=== PATIENT | male | born 1950 | race American Indian/Alaskan Native ===

== ENCOUNTER 2017-03-09 16:27 | Emergency (ER) | payer MEDICARE, OTHER ==
[2017-03-09 17:55] LABS: Basophils % (Auto) 0.9 % (0.0-1.8); Eosinophils % (Auto) 2.1 % (0.0-4.3); Hematocrit 39.2 % (35.5-45.6); Hemoglobin 13.1 gm/dl (11.8-15.2); Mean Corpuscular HGB Conc 33 % (32-34); Mean Corpuscular Hemoglobin 30 pg (28-32); Mean Corpuscular Volume 90 fl (84-94); Platelet Count 216 K/mm3 (140-440); Red Blood Count 4.34 M/mm3 (3.65-5.03); Red Cell Distribution Width 14.8 % (13.2-15.2); White Blood Count 4.8 K/mm3 (4.5-11.0)
[2017-03-09 18:13] LABS: Anion Gap 22 mmol/L; BUN/Creatinine Ratio 12; Blood Urea Nitrogen 12 mg/dL (9-20); Calcium 9.2 mg/dL (8.4-10.2); Carbon Dioxide 26 mmol/L (22-30); Chloride 100.5 mmol/L (98-107); Glucose 199 mg/dL (75-100); Potassium 4.6 mmol/L (3.6-5.0); Sodium 144 mmol/L (137-145)
[2017-03-09 20:32] LABS: Bacteria,Urine 1+ /HPF (Negative); Bilirubin,Urine NEG (Negative); Blood,Urine NEG (Negative); Ketones,Urine NEG (Negative); Leukocyte Esterase,Urine NEG (Negative); Nitrite,Urine NEG (Negative); Protein,Urine <15 mg/dL mg/dL (Negative); Urobilinogen,Urine < 2.0 mg/dL (<2.0)
--- NOTE | 2017-03-09 20:50 | Emergency Department Report ---
ED Dizziness HPI - General Chief Complaint: Hypoglycemia Stated Complaint: HYPERGLYCEMIA Time Seen by Provider: 03/09/17 19:07 Source: patient, EMS Mode of arrival: Stretcher Limitations: No Limitations - History of Present Illness Initial Comments: Patient gave initial story but due to dementia I called grandson and was able obtain similar story but with better details. Patient did not eat breakfast and is on long and short acting insulin. He laid around all day and around 5 pm the grandson went into room to get the patient up and he did respond yes but then was not responsive. His glucose was in the teens when EMS first arrived. Patient has no other compliaints and grandson said he was back to baseline after glucose came up. MD Complaint: dizziness, other (confused) -: Sudden, This afternoon Timing: sudden onset Description: other (did not respond verbally normally to grandson.) History of Same: Yes History of Trauma: No Severity: moderate Improves With: medication (glucose) Worsens With: nothing Associated Symptoms: confusion - Related Data Home Medications Medication Instructions Recorded Confirmed Last Taken Glipizide 03/09/17 Unknown metFORMIN 03/09/17 Unknown Allergies Allergy/AdvReac Type Severity Reaction Status Date / Time No Known Allergies Allergy Unverified 03/09/17 16:29 ED Review of Systems ROS: Stated complaint: HYPERGLYCEMIA Other details as noted in HPI Constitutional: denies: chills, fever Eyes: denies: eye pain, eye discharge, vision change ENT: denies: ear pain, throat pain Respiratory: denies: cough, shortness of breath, wheezing Cardiovascular: denies: chest pain, palpitations Endocrine: no symptoms reported Gastrointestinal: denies: abdominal pain, nausea, diarrhea Genitourinary: denies: urgency, dysuria Musculoskeletal: denies: back pain, joint swelling, arthralgia Skin: denies: rash, lesions Neurological: weakness, confusion. denies: headache, paresthesias Psychiatric: denies: anxiety, depression Hematological/Lymphatic: denies: easy bleeding, easy bruising ED Past Medical Hx - Past Medical History Previous Medical History?: Yes Hx Hypertension: Yes Hx Diabetes: Yes Additional medical history: Family reported to EMS that pt is in the first stages of dementia - Surgical History Past Surgical History?: No - Medications Home Medications: Home Medications Medication Instructions Recorded Confirmed Last Taken Type Glipizide 03/09/17 Unknown History metFORMIN 03/09/17 Unknown History ED Physical Exam - General Limitations: No Limitations General appearance: alert, in no apparent distress - Head Head exam: Present: atraumatic, normocephalic - Eye Eye exam: Present: normal appearance - ENT ENT exam: Present: mucous membranes moist - Neck Neck exam: Present: normal inspection - Respiratory Respiratory exam: Present: normal lung sounds bilaterally. Absent: respiratory distress - Cardiovascular Cardiovascular Exam: Present: regular rate, normal rhythm. Absent: systolic murmur, diastolic murmur, rubs, gallop - GI/Abdominal GI/Abdominal exam: Present: soft, normal bowel sounds - Rectal Rectal exam: Present: deferred - Extremities Exam Extremities exam: Present: normal inspection - Back Exam Back exam: Present: normal inspection - Neurological Exam Neurological exam: Present: alert, oriented X3, other (Patient unable to give clear details of timing but did give me sequence of events well. ) - Psychiatric Psychiatric exam: Present: normal affect, normal mood - Skin Skin exam: Present: warm, dry, intact, normal color. Absent: rash ED Course Vital Signs 03/09/17 03/09/17 03/09/17 16:31 16:59 17:00 Pulse Rate 82 Respiratory 18 Rate Blood Pressure 150/90 188/73 188/73 O2 Sat by Pulse 98 100 100 Oximetry 03/09/17 17:03 Pulse Rate Respiratory 16 Rate Blood Pressure O2 Sat by Pulse Oximetry ED Medical Decision Making - Lab Data Result diagrams: 03/09/17 16:53 03/09/17 16:53 Unremarkable labs. - Medical Decision Making Patient with hypoglycemic event likely due to missing breakfast and being on a long acting insulin. He has maintained sugars here and is back to baseline congnitive function. We will let him go home and follow up outpatient. D/W patient's grandson. Critical care attestation.: If time is entered above; I have spent that time in minutes in the direct care of this critically ill patient, excluding procedure time. ED Disposition Clinical Impression: Hypoglycemia due to type 1 diabetes mellitus Dementia Qualifiers: Dementia type: Alzheimer's disease Alzheimer's disease onset: early-onset Dementia behavioral disturbance: without behavioral disturbance Qualified Code(s ): G30.0 - Alzheimer's disease with early onset; F02.80 - Dementia in other diseases classified elsewhere without behavioral disturbance; F02.80 - Dementia in other diseases classified elsewhere without behavioral disturbance; F02.80 - Dementia in other diseases classified elsewhere without behavioral disturbance Disposition: DC-01 TO HOME OR SELFCARE Is pt being admited?: No Does the pt Need Aspirin: No Condition: Good Instructions: Diabetes Mellitus Type 2 in Adults (ED), Diabetic Hypoglycemia ( ED) Referrals: PRIMARY CARE, [Primary Care Provider] - 3-5 Days Time of Disposition: 20:52
[2017-03-09 21:59] VITALS: BP 186/86
== END 2017-03-09 21:59 | disposition home or self-care (01) ==
LOC: ED 16:27
DX: E10.649 Type 1 diabetes mellitus with hypoglycemia without coma (principal); G30.0 Alzheimer's disease with early onset; F02.80 Dementia in other diseases classified elsewhere, unspecified severity, without behavioral disturbance, psychotic disturbance, mood disturbance, and anxiety; I10 Essential (primary) hypertension
CPT/HCPCS: 36415; 80048; 81001; 82962; 85025

== ENCOUNTER 2017-08-29 01:28 | Emergency (ER) | payer MEDICARE ==
[2017-08-29 02:20] LABS: Basophils % (Auto) 0.7 % (0.0-1.8); Eosinophils # (Auto) 0.2 K/mm3 (0.0-0.4); Eosinophils % (Auto) 3.9 % (0.0-4.3); Hematocrit 34.4 % (35.5-45.6); Hemoglobin 11.9 gm/dl (11.8-15.2); Lymphocytes # (Auto) 1.8 K/mm3 (1.2-5.4); Lymphocytes % (Auto) 37.1 % (13.4-35.0); Mean Corpuscular HGB Conc 35 % (32-34); Mean Corpuscular Hemoglobin 31 pg (28-32); Mean Corpuscular Volume 89 fl (84-94); Monocytes # (Auto) 0.3 K/mm3 (0.0-0.8); Monocytes % (Auto) 6.9 % (0.0-7.3); Platelet Count 147 K/mm3 (140-440); Red Blood Count 3.84 M/mm3 (3.65-5.03); Red Cell Distribution Width 13.9 % (13.2-15.2)
[2017-08-29 02:52] LABS: Calcium 8.7 mg/dL (8.4-10.2)
[2017-08-29 03:11] LABS: Bilirubin,Urine NEG (Negative); Blood,Urine NEG (Negative); Color,Urine Yellow (Yellow); Mucus,Urine FEW /HPF; Protein,Urine <15 mg/dL mg/dL (Negative); Urobilinogen,Urine < 2.0 mg/dL (<2.0); WBC,Urine < 1.0 /HPF (0.0-6.0)
[2017-08-29] MEDS ORDERED: NACL 0.9% 1000 ML 1,000 ML IV ONE (04:02)
--- NOTE | 2017-08-29 05:02 | Emergency Department Report ---
ED General Adult HPI - General Chief complaint: Hyperglycemia Stated complaint: HBS Time Seen by Provider: 08/29/17 04:24 Source: patient, EMS Mode of arrival: Stretcher Limitations: No Limitations - History of Present Illness Initial comments: Patient brought in by family with report that his sugar has been progressively increasing over the past week, despite taken his normal insulin doses as scheduled. He is a type 2 insulin-dependent diabetic, has not been ill recently , has been eating normally, and reports that he has been taken his regular doses without fail, with the exception of last evening's dose, but for which he cannot explain why he did not take. He reports that he takes insulin 3 times a day, but does not taken particularly with mealtime. Patient says that he administers his own insulin, but when questioned about his living arrangements, reports that his son helped him take care of his insulin dosing. Patient's past medical history is also significant for early stages of dementia , but patient is fairly active and independent, although he lives with his son. Patient is fairly cooperative, but cannot give exact details of his care, but despite this is able to give a fairly good history of this current problem. He has no other acute symptoms, and no systemic symptoms to suggest any source of possible infection. He has not had any trauma, has not been nauseated, has not been vomiting, has no cough or congestion, no chest pain, no sore throat, no difficulty with urination. -: Gradual, week(s) (1) - Related Data Home Medications Medication Instructions Recorded Confirmed Last Taken Glipizide 03/09/17 Unknown metFORMIN 03/09/17 Unknown Allergies Allergy/AdvReac Type Severity Reaction Status Date / Time No Known Allergies Allergy Unverified 03/09/17 16:29 ED Review of Systems ROS: Stated complaint: HBS Other details as noted in HPI Comment: Unobtainable due to pts medical conditions (early stages of dementia, but patient is fairly cooperative and lucid) Constitutional: no symptoms reported. denies: chills, diaphoresis, fever, malaise, weakness ENT: denies: ear pain, throat pain Respiratory: denies: cough, shortness of breath, wheezing Cardiovascular: denies: chest pain, palpitations Endocrine: no symptoms reported. denies: excessive sweating, flushing, increased hunger, increased thirst Gastrointestinal: denies: abdominal pain, nausea, diarrhea Genitourinary: denies: urgency, dysuria Musculoskeletal: denies: back pain, joint swelling, arthralgia Skin: denies: rash, lesions Neurological: other (early dementia, as reported by family). denies: headache, weakness, paresthesias ED Past Medical Hx - Past Medical History Previous Medical History?: Yes Hx Hypertension: Yes Hx Diabetes: Yes Additional medical history: Family reported to EMS that pt is in the first stages of dementia - Surgical History Past Surgical History?: No - Social History Smoking Status: Former Smoker Substance Use Type: None - Medications Home Medications: Home Medications Medication Instructions Recorded Confirmed Last Taken Type Glipizide 03/09/17 Unknown History metFORMIN 03/09/17 Unknown History ED Physical Exam - General Limitations: No Limitations General appearance: alert, in no apparent distress - Head Head exam: Present: atraumatic, normocephalic - Eye Eye exam: Present: normal appearance, PERRL, EOMI - ENT ENT exam: Present: normal exam, mucous membranes moist - Neck Neck exam: Present: normal inspection. Absent: tenderness, full ROM - Respiratory Respiratory exam: Present: normal lung sounds bilaterally. Absent: respiratory distress, wheezes, rales, rhonchi - Cardiovascular Cardiovascular Exam: Present: regular rate, normal heart sounds - GI/Abdominal GI/Abdominal exam: Present: soft, normal bowel sounds. Absent: distended, tenderness, guarding, rebound - Rectal Rectal exam: Present: deferred - Extremities Exam Extremities exam: Present: normal inspection - Back Exam Back exam: Present: normal inspection - Neurological Exam Neurological exam: Present: alert, CN II-XII intact, motor sensory deficit, other ( vague and more nonspecific with more detailed questioning, but alert and fairly good historian) - Psychiatric Psychiatric exam: Present: normal affect, normal mood - Skin Skin exam: Present: warm, dry. Absent: diaphoretic, petechiae, pallor, abrasion , ecchymosis ED Course Vital Signs 08/29/17 08/29/17 08/29/17 01:31 01:45 01:48 Temperature 97.9 F Pulse Rate 67 65 64 Respiratory 12 16 Rate Blood Pressure 138/63 137/60 O2 Sat by Pulse 98 Oximetry 08/29/17 08/29/17 08/29/17 02:01 02:15 02:31 Temperature Pulse Rate 68 71 63 Respiratory 15 13 11 L Rate Blood Pressure 138/63 138/63 173/60 O2 Sat by Pulse Oximetry 08/29/17 08/29/17 08/29/17 02:45 03:00 03:07 Temperature Pulse Rate 66 62 Respiratory 11 L 11 L 12 Rate Blood Pressure 173/60 187/89 O2 Sat by Pulse 98 Oximetry 08/29/17 08/29/17 08/29/17 03:15 03:30 03:45 Temperature Pulse Rate 70 66 66 Respiratory 13 12 11 L Rate Blood Pressure 187/89 173/62 173/62 O2 Sat by Pulse Oximetry 08/29/17 08/29/17 08/29/17 04:01 04:15 04:31 Temperature Pulse Rate 69 62 60 Respiratory 13 10 L 10 L Rate Blood Pressure 162/140 162/140 168/59 O2 Sat by Pulse Oximetry 08/29/17 08/29/17 08/29/17 05:01 05:31 06:01 Temperature Pulse Rate 63 61 65 Respiratory 9 L 11 L 12 Rate Blood Pressure 181/70 183/64 206/75 O2 Sat by Pulse Oximetry 08/29/17 06:30 Temperature Pulse Rate 68 Respiratory 12 Rate Blood Pressure 151/84 O2 Sat by Pulse Oximetry - Reevaluation(s) Reevaluation #1: 08/29/17 06:52 Patient is stable, remains asymptomatic, labs were normal, with exception of hyperglycemia, but glucose is decreased from 515 2 4068, patient is not acidotic , has normal pH, and normal bicarbonate level. He is hyperglycemic, and needs adjustment of his medication, but does not need hospitalization or inpatient treatment for this. ED Medical Decision Making - Lab Data Result diagrams: 08/29/17 02:03 08/29/17 05:20 - Radiology Data Radiology results: report reviewed (chest x-ray shows no acute cardiopulmonary findings, no pneumonia or infiltrate suggestive of infectious process.) - Medical Decision Making Patient is stable, asymptomatic, has uncomplicated hyperglycemia with no signs of acidosis. He also has no findings of secondary infection, which we most likely cause of uncontrolled hyperglycemia, and he can be returned to his routine care. He may need adjustment of his insulin, and given his dementia, he could be less compliant then he is reporting. Patient is stable for discharge home, given usual morning dose of 25 units of Levemir insulin subcutaneous. He'll be recommended to follow with his doctor in the coming week. - Differential Diagnosis hyperglycemia, urinary tract infection, sepsis, pneumonia Critical Care Time: No Critical care attestation.: If time is entered above; I have spent that time in minutes in the direct care of this critically ill patient, excluding procedure time. ED Disposition Clinical Impression: Hyperglycemia due to type 2 diabetes mellitus Qualifiers: Diabetes mellitus terminal gauger supervisor insulin use: with terminal gauger supervisor use Qualified Code(s): E11.65 - Type 2 diabetes mellitus with hyperglycemia; Z79.4 - long-term (current ) use of insulin Disposition: DC-01 TO HOME OR SELFCARE Is pt being admited?: No Does the pt Need Aspirin: No Condition: Stable Instructions: Diabetes Mellitus Type 2 in Adults (ED) Additional Instructions: Blood sugar was high today, but there is no signs of secondary complications of acidosis, or underlying infection that could be cause of hyperglycemia. We recommend returning to your usual insulin dose, and follow with your doctor in the coming week to determine if you need to adjust your dose. Referrals: PRIMARY CARE [Primary Care Provider] - 3-5 Days Time of Disposition: 06:55
[2017-08-29 05:53] LABS: Albumin 3.8 g/dL (3.9-5); Calcium 8.8 mg/dL (8.4-10.2)
[2017-08-29 07:59] VITALS: BP 156/75
--- NOTE | 2017-08-30 14:29 | XRay Report ---
FINAL REPORT EXAM: XR CHEST 1V AP HISTORY: hyperglycemia TECHNIQUE: AP portable view(s) of the chest obtained. PRIORS: None. FINDINGS: No mediastinal shift. Cardiac silhouette is not enlarged. No pneumothorax, effusion, or focal pulmonary opacity identified. No acute skeletal findings. IMPRESSION: No acute pulmonary finding identified.
== END 2017-08-29 09:30 | disposition home or self-care (01) ==
LOC: EDBD 01:28 → ED 01:28
DX: E11.65 Type 2 diabetes mellitus with hyperglycemia (principal); I10 Essential (primary) hypertension; F03.90 Unspecified dementia, unspecified severity, without behavioral disturbance, psychotic disturbance, mood disturbance, and anxiety; Z79.4 Long term (current) use of insulin; Z87.891 Personal history of nicotine dependence
CPT/HCPCS: 36415; 71045; 80048; 80053; 81001; 82140; 82805; 82962; 85025; 96360; 99285; J7030

== ENCOUNTER 2017-11-07 21:34 | Emergency (ER) | payer MEDICARE ==
[2017-11-07] MEDS ORDERED: HumuLIN R IV ONE ×2 (21:54→23:46)
[2017-11-07] MEDS ORDERED: NACL 0.9% 1000 ML 1,000 ML IV ONE (22:14)
[2017-11-07 22:29] LABS: Basophils # (Auto) 0.1 K/mm3 (0.0-0.1); Basophils % (Auto) 1.2 % (0.0-1.8); Eosinophils # (Auto) 0.2 K/mm3 (0.0-0.4); Eosinophils % (Auto) 3.4 % (0.0-4.3); Hematocrit 31.1 % (35.5-45.6); Hemoglobin 10.8 gm/dl (11.8-15.2); Lymphocytes # (Auto) 1.5 K/mm3 (1.2-5.4); Lymphocytes % (Auto) 29.8 % (13.4-35.0); Mean Corpuscular HGB Conc 35 % (32-34); Mean Corpuscular Hemoglobin 32 pg (28-32); Mean Corpuscular Volume 92 fl (84-94); Monocytes # (Auto) 0.4 K/mm3 (0.0-0.8); Monocytes % (Auto) 8.8 % (0.0-7.3); Platelet Count 196 K/mm3 (140-440); Red Blood Count 3.38 M/mm3 (3.65-5.03); Red Cell Distribution Width 14.4 % (13.2-15.2)
--- NOTE | 2017-11-07 22:33 | Emergency Department Report ---
ED General Adult HPI - General Chief complaint: Hyperglycemia Stated complaint: HYPERGLYCEMIA Time Seen by Provider: 11/07/17 21:44 Source: patient, EMS Mode of arrival: Stretcher Limitations: Other - History of Present Illness Initial comments: 67 yo male the past medical history of diabetes currently on pills and insulin, hypertension, dementia, and elevated cholesterol presents to the hospital due to foot pain and swelling. Patient injured his right foot while getting out of a car yesterday as complained of right foot pain. He also complains of a bilateral foot pain and burning sensation. History of diabetic neuropathy reported. Patient scraped his anterior left leg during a fall as well. He presents with bilateral leg edema and has a history of pedal edema but has never spread to his legs in the past. Family called EMS to evaluate patient due to this pain and swelling and he was incidentally found with a glucose over 600. Patient has been compliant with his medication and was due for his evening dose of insulin prior to transport. Previous medical records were reviewed and patient has had renal insufficiency in the past. He is presenting here with hyperglyemia but not dka. - Related Data Home Medications Medication Instructions Recorded Confirmed Last Taken Glipizide 03/09/17 Unknown metFORMIN 03/09/17 Unknown Allergies Allergy/AdvReac Type Severity Reaction Status Date / Time No Known Allergies Allergy Unverified 03/09/17 16:29 ED Review of Systems ROS: Stated complaint: HYPERGLYCEMIA Other details as noted in HPI Comment: All other systems reviewed and negative ED Past Medical Hx - Past Medical History Previous Medical History?: Yes Hx Hypertension: Yes Hx Diabetes: Yes (pill and insulin) Additional medical history: dementia. elevated cholesterol - Social History Smoking Status: Never Smoker Substance Use Type: None - Medications Home Medications: Home Medications Medication Instructions Recorded Confirmed Last Taken Type Glipizide 03/09/17 Unknown History metFORMIN 03/09/17 Unknown History ED Physical Exam - General Limitations: Other - Other Other exam information: General: No limitations, patient is alert in no acute distress Head exam: Atraumatic, normocephalic Eyes exam: Normal appearance ENT: Moist mucous membrane, normal oropharynx Neck exam: Normal inspection, full range of motion, no meningismus nontender Respiratory exam: Clear to auscultation bilateral, no wheezes, rales, crackles Cardiovascular: Normal rate and rhythm, normal heart sounds Abdomen: Soft, nondistended, and nontender, with normal bowel sounds, no rebound, or guarding Extremity: Full range of motion, bilateral lower extremity edema from the foot to the distal leg. No calf tenderness. No erythema or warmth. Abrasion noted to left tibia area. 2+ DP pulses equal bilaterally. Sensation to feet intact and equal bilaterally Back: Normal Inspection, full range of motion, no tenderness Neurologic: Alert, oriented x3, cranial nerves intact, 4/5 left arm weakness compared to right which is chronic as per family and patient Psychiatric: normal affect, normal mood Skin: Warm, dry, intact ED Course Vital Signs 11/07/17 11/07/17 11/07/17 21:37 22:03 22:31 Temperature 98.7 F Pulse Rate 92 H 82 78 Respiratory 16 12 12 Rate Blood Pressure 138/76 138/76 133/72 O2 Sat by Pulse 98 99 98 Oximetry 11/07/17 11/07/17 11/07/17 22:45 23:01 23:15 Temperature Pulse Rate 78 76 76 Respiratory 11 L 12 12 Rate Blood Pressure 141/74 111/56 111/56 O2 Sat by Pulse 98 97 98 Oximetry 11/07/17 11/07/17 11/07/17 23:31 23:45 23:51 Temperature 98.3 F Pulse Rate 108 H 73 Respiratory 14 11 L Rate Blood Pressure 111/46 130/47 O2 Sat by Pulse 96 99 Oximetry 11/08/17 11/08/17 11/08/17 00:04 00:15 00:45 Temperature Pulse Rate 71 69 Respiratory 16 11 L 10 L Rate Blood Pressure 125/57 135/65 O2 Sat by Pulse 98 99 98 Oximetry ED Medical Decision Making - Lab Data Result diagrams: 11/07/17 22:12 11/07/17 22:12 Lab Results 11/07/17 11/07/17 11/07/17 Range/Units 22:12 22:12 22:12 WBC 5.0 (4.5-11.0) K/mm3 RBC 3.38 L (3.65-5.03) M/mm3 Hgb 10.8 L (11.8-15.2) gm/dl Hct 31.1 L (35.5-45.6) % MCV 92 (84-94) fl MCH 32 (28-32) pg MCHC 35 H (32-34) % RDW 14.4 (13.2-15.2) % Plt Count 196 (140-440) K/mm3 Lymph % (Auto) 29.8 (13.4-35.0) % [place] % (Auto) 8.8 H (0.0-7.3) % Eos % (Auto) 3.4 (0.0-4.3) % Baso % (Auto) 1.2 (0.0-1.8) % Lymph # 1.5 (1.2-5.4) K/mm3 [place] # 0.4 (0.0-0.8) K/mm3 Eos # 0.2 (0.0-0.4) K/mm3 Baso # 0.1 (0.0-0.1) K/mm3 Seg Neutrophils % 56.8 (40.0-70.0) % Seg Neutrophils # 2.8 (1.8-7.7) K/mm3 VBG pH 7.432 H (7.320-7.420) Sodium 132 L (137-145) mmol/L Potassium 4.2 (3.6-5.0) mmol/L Chloride 92.5 L (98-107) mmol/L Carbon Dioxide 23 (22-30) mmol/L Anion Gap 21 mmol/L BUN 27 H (9-20) mg/dL Creatinine 1.4 (0.8-1.5) mg/dL Estimated GFR > 60 ml/min BUN/Creatinine Ratio 19 % Glucose 730 H* (75-100) mg/dL POC Glucose (70-105) Calcium 8.7 (8.4-10.2) mg/dL Magnesium 2.20 (1.7-2.3) mg/dL Total Bilirubin 0.50 (0.1-1.2) mg/dL AST 32 (5-40) units/L ALT 38 (7-56) units/L Alkaline Phosphatase 70 (35-129) units/L Total Protein 6.1 L (6.3-8.2) g/dL Albumin 4.0 (3.9-5) g/dL Albumin/Globulin Ratio 1.9 % Urine Color (Yellow) Urine Turbidity (Clear) Urine pH (5.0-7.0) Ur Specific [place] (1.003-1.030) Urine Protein (Negative) mg/dL Urine Glucose (UA) (Negative) mg/dL Urine Ketones (Negative) mg/dL Urine Blood (Negative) Urine Nitrite (Negative) Urine Bilirubin (Negative) Urine Urobilinogen (<2.0) mg/dL Ur Leukocyte Esterase (Negative) Urine WBC (Auto) (0.0-6.0) /HPF Urine RBC (Auto) (0.0-6.0) /HPF U Epithel Cells (Auto) (0-13.0) /HPF Urine Mucus /HPF 11/07/17 11/07/17 11/08/17 Range/Units 23:29 23:51 01:00 WBC (4.5-11.0) K/mm3 RBC (3.65-5.03) M/mm3 Hgb (11.8-15.2) gm/dl Hct (35.5-45.6) % MCV (84-94) fl MCH (28-32) pg MCHC (32-34) % RDW (13.2-15.2) % Plt Count (140-440) K/mm3 Lymph % (Auto) (13.4-35.0) % [place] % (Auto) (0.0-7.3) % Eos % (Auto) (0.0-4.3) % Baso % (Auto) (0.0-1.8) % Lymph # (1.2-5.4) K/mm3 [place] # (0.0-0.8) K/mm3 Eos # (0.0-0.4) K/mm3 Baso # (0.0-0.1) K/mm3 Seg Neutrophils % (40.0-70.0) % Seg Neutrophils # (1.8-7.7) K/mm3 VBG pH (7.320-7.420) Sodium (137-145) mmol/L Potassium (3.6-5.0) mmol/L Chloride (98-107) mmol/L Carbon Dioxide (22-30) mmol/L Anion Gap mmol/L BUN (9-20) mg/dL Creatinine (0.8-1.5) mg/dL Estimated GFR ml/min BUN/Creatinine Ratio % Glucose (75-100) mg/dL POC Glucose 390 H 219 H (70-105) Calcium (8.4-10.2) mg/dL Magnesium (1.7-2.3) mg/dL Total Bilirubin (0.1-1.2) mg/dL AST (5-40) units/L ALT (7-56) units/L Alkaline Phosphatase (35-129) units/L Total Protein (6.3-8.2) g/dL Albumin (3.9-5) g/dL Albumin/Globulin Ratio % Urine Color Yellow (Yellow) Urine Turbidity Clear (Clear) Urine pH 5.0 (5.0-7.0) Ur Specific [place] 1.022 (1.003-1.030) Urine Protein <15 mg/dl (Negative) mg/dL Urine Glucose (UA) >=500 (Negative) mg/dL Urine Ketones Neg (Negative) mg/dL Urine Blood Neg (Negative) Urine Nitrite Neg (Negative) Urine Bilirubin Neg (Negative) Urine Urobilinogen < 2.0 (<2.0) mg/dL Ur Leukocyte Esterase Neg (Negative) Urine WBC (Auto) < 1.0 (0.0-6.0) /HPF Urine RBC (Auto) 2.0 (0.0-6.0) /HPF U Epithel Cells (Auto) < 1.0 (0-13.0) /HPF Urine Mucus Few /HPF - Radiology Data Radiology results: report reviewed FINAL REPORT EXAM: XR FOOT 3+V RT HISTORY: foot pain after injury TECHNIQUE: Frontal, lateral, oblique views right foot Comparison: None FINDINGS: The bony structures are osteopenic in appearance. There is no definite plain film evidence of fracture. There is evidence of degenerative change of the great toe metatarsophalangeal joint with joint space loss. There is soft tissue swelling on the dorsal aspect of the foot and at the level of the ankle. There is atherosclerotic vascular calcification. IMPRESSION: 1. Osteopenia. 2. Soft tissue swelling without definite plain film evidence of fracture. If there is a clinical concern for fracture, MRI may be helpful. 3. Degenerative change great toe metatarsophalangeal joint. 4. Atherosclerotic vascular calcification. - Medical Decision Making Hyperglycemia Without signs of DKA Patient came to the ER just prior to his scheduled insulin dose Positive reduction after insulin and normal saline Creatinine is improved compared to previous values. Patient does have a mildly elevated BUN which improve correct with 2 L of of normal saline that he received Patient does have lower extremity edema without calf tenderness, signs of infection, with normal renal and liver function tests. Patient is not have proteinuria or significantly low albumin/protein Patient having symptoms of diabetic neuropathy and is already on neurontin Right foot pain Nontender and on exam however, given a history of injury and complaint x-ray was performed No signs of fracture - Differential Diagnosis DKA, hyperglycemia, fracture, diabetic neuropathy Critical Care Time: No Critical care attestation.: If time is entered above; I have spent that time in minutes in the direct care of this critically ill patient, excluding procedure time. ED Disposition Clinical Impression: Hyperglycemia due to type 2 diabetes mellitus, Diabetic neuropathy, Contusion of foot, right, Leg edema Disposition: TO HOME OR SELFCARE Is pt being admited?: No Does the pt Need Aspirin: No Condition: Stable Instructions: Diabetes Mellitus Type 2 in Adults (ED), Diabetic Neuropathy (ED) , Foot Contusion (ED), Leg Edema (ED) Additional Instructions: Follow up with your primary care doctor for further evaluation. Return if symptoms worsen as indicated by your discharge instructions. Take the medication as prescribed. Referrals: PRIMARY CARE, [Primary Care Provider] - 3-5 Days Time of Disposition: 01:03
--- NOTE | 2017-11-07 22:50 | XRay Report ---
FINAL REPORT EXAM: XR FOOT 3+V RT HISTORY: foot pain after injury TECHNIQUE: Frontal, lateral, oblique views right foot Comparison: None FINDINGS: The bony structures are osteopenic in appearance. There is no definite plain film evidence of fracture. There is evidence of degenerative change of the great toe metatarsophalangeal joint with joint space loss. There is soft tissue swelling on the dorsal aspect of the foot and at the level of the ankle. There is atherosclerotic vascular calcification. IMPRESSION: 1. Osteopenia. 2. Soft tissue swelling without definite plain film evidence of fracture. If there is a clinical concern for fracture, MRI may be helpful. 3. Degenerative change great toe metatarsophalangeal joint. 4. Atherosclerotic vascular calcification.
[2017-11-07 23:04] LABS: Alanine Aminotransferase 38 units/L (7-56); BUN/Creatinine Ratio 19; Blood Urea Nitrogen 27 mg/dL (9-20); Calcium 8.7 mg/dL (8.4-10.2); Hemolysis Index 5
[2017-11-07 23:58] LABS: Bilirubin,Urine NEG (Negative); Blood,Urine NEG (Negative); Color,Urine Yellow (Yellow); Mucus,Urine FEW /HPF; Protein,Urine <15 mg/dL mg/dL (Negative); Urobilinogen,Urine < 2.0 mg/dL (<2.0); WBC,Urine < 1.0 /HPF (0.0-6.0)
[2017-11-08 01:00] VITALS: BP 135/65
== END 2017-11-08 02:16 | disposition home or self-care (01) ==
LOC: ED 21:34
DX: S90.31XA Contusion of right foot, initial encounter (principal); E11.65 Type 2 diabetes mellitus with hyperglycemia; E11.40 Type 2 diabetes mellitus with diabetic neuropathy, unspecified; R60.0 Localized edema; I10 Essential (primary) hypertension; E78.00 Pure hypercholesterolemia, unspecified; Z79.84 Long term (current) use of oral hypoglycemic drugs; Z79.4 Long term (current) use of insulin; W19.XXXA Unspecified fall, initial encounter; Y93.89 Activity, other specified; Y92.89 Other specified places as the place of occurrence of the external cause; Y99.8 Other external cause status
CPT/HCPCS: 36415; 73630; 80053; 81001; 82805; 82962; 83735; 85025; 96361; 96374; 96376; 99284; J7030; J1815

== ENCOUNTER 2017-11-10 18:52 | Emergency (ER) | payer MEDICARE ==
[2017-11-10] MEDS ORDERED: NACL 0.9% 1000 ML IV ONE (20:24)
[2017-11-10] MEDS ORDERED: HumuLIN R IV ONE (20:26)
[2017-11-10 20:43] LABS: Basophils % (Auto) 1.1 % (0.0-1.8); Eosinophils # (Auto) 0.2 K/mm3 (0.0-0.4); Eosinophils % (Auto) 3.9 % (0.0-4.3); Hematocrit 34.1 % (35.5-45.6); Hemoglobin 11.4 gm/dl (11.8-15.2); Lymphocytes # (Auto) 1.5 K/mm3 (1.2-5.4); Lymphocytes % (Auto) 34.6 % (13.4-35.0); Mean Corpuscular HGB Conc 34 % (32-34); Mean Corpuscular Hemoglobin 31 pg (28-32); Mean Corpuscular Volume 92 fl (84-94); Monocytes # (Auto) 0.4 K/mm3 (0.0-0.8); Monocytes % (Auto) 9.4 % (0.0-7.3); Platelet Count 195 K/mm3 (140-440); Red Blood Count 3.72 M/mm3 (3.65-5.03); Red Cell Distribution Width 13.8 % (13.2-15.2)
[2017-11-10 21:02] LABS: Alanine Aminotransferase 66 units/L (7-56); Albumin 3.7 g/dL (3.9-5); BUN/Creatinine Ratio 20; Blood Urea Nitrogen 24 mg/dL (9-20); Calcium 9.2 mg/dL (8.4-10.2); Hemolysis Index 14
[2017-11-10] MEDS ORDERED: KEFLEX PO ONE (21:11)
--- NOTE | 2017-11-10 21:11 | Emergency Department Report ---
ED General Adult HPI - General Chief complaint: Hyperglycemia Stated complaint: HYPERGLYCEMIA Time Seen by Provider: 11/10/17 20:23 Source: patient, EMS Mode of arrival: Stretcher Limitations: No Limitations - History of Present Illness Initial comments: Glucose was checked at his [facility] and it was found to be high. So, they called EMS to bring him to the hospital. Pt endorses increases thirst, urinary frequency, and his chronic bilateral feet pain. - Related Data Home Medications Medication Instructions Recorded Confirmed Last Taken Glipizide 03/09/17 Unknown metFORMIN 03/09/17 Unknown Levemir Flextouch 25 unit SUB-Q HS MDD 25 units 11/10/17 11/10/17 Unknown Previous Rx's Medication Instructions Recorded Last Taken Type cephALEXin [Keflex] 500 mg PO Q8HR #15 cap 11/10/17 Unknown Rx Allergies Allergy/AdvReac Type Severity Reaction Status Date / Time No Known Allergies Allergy Unverified 03/09/17 16:29 ED Review of Systems ROS: Stated complaint: HYPERGLYCEMIA Other details as noted in HPI Comment: All other systems reviewed and negative Genitourinary: frequency Musculoskeletal: myalgia ED Past Medical Hx - Past Medical History Previous Medical History?: Yes Hx Hypertension: Yes Hx CVA: No Hx Heart Attack/AMI: No Hx Congestive Heart Failure: No Hx Diabetes: Yes (pill and insulin) Hx Deep Vein Thrombosis: No Hx GERD: No Hx of Cancer: No Hx Arthritis: No Hx Headaches / Migraines: No Hx Kidney Stones: No Hx Asthma: No Hx COPD: No Hx Dementia: Yes Hx HIV: No Additional medical history: dementia. elevated cholesterol - Social History Smoking Status: Never Smoker Substance Use Type: None - Medications Home Medications: Home Medications Medication Instructions Recorded Confirmed Last Taken Type Glipizide 03/09/17 Unknown History metFORMIN 03/09/17 Unknown History Levemir Flextouch 25 unit SUB-Q HS MDD 25 units 18 11/10/17 Unknown History cephALEXin [Keflex] 500 mg PO Q8HR #15 cap 11/10/17 Unknown Rx ED Physical Exam - General Limitations: No Limitations General appearance: alert, in no apparent distress - Head Head exam: Present: atraumatic, normocephalic - Eye Eye exam: Present: normal appearance - ENT ENT exam: Present: mucous membranes moist - Neck Neck exam: Present: normal inspection - Respiratory Respiratory exam: Present: normal lung sounds bilaterally. Absent: respiratory distress - Cardiovascular Cardiovascular Exam: Present: regular rate, normal rhythm. Absent: systolic murmur, diastolic murmur, rubs, gallop - GI/Abdominal GI/Abdominal exam: Present: soft, normal bowel sounds. Absent: distended, tenderness, guarding - Rectal Rectal exam: Present: deferred - Extremities Exam Extremities exam: Present: normal inspection - Back Exam Back exam: Present: normal inspection - Neurological Exam Neurological exam: Present: alert, oriented X3 - Psychiatric Psychiatric exam: Present: normal affect, normal mood - Skin Skin exam: Present: warm, dry, intact, normal color. Absent: rash ED Course Vital Signs 11/10/17 11/10/17 11/10/17 20:05 20:15 20:17 Temperature 97.6 F Pulse Rate 54 L 57 L Respiratory 8 L 18 Rate Blood Pressure 135/71 135/71 O2 Sat by Pulse 100 100 100 Oximetry 11/10/17 20:32 Temperature Pulse Rate Respiratory Rate Blood Pressure O2 Sat by Pulse 100 Oximetry - Reevaluation(s) Reevaluation #1: Pt has been given IVF/insulin. BG is in the 200s. Will wait for his blood gas and urinalysis. 11/10/17 23:05 Reevaluation #2: VBG is unremarkable for acidosis. UA is unremarkable to UTI. He will follow up with his pcp for his mild left anterior leg cellulitis and further monitoring of his glucose. Family feels comfortable taking him home. 11/10/17 23:30 11/10/17 23:42 ED Medical Decision Making - Lab Data Result diagrams: 11/10/17 20:32 11/10/17 20:32 - Medical Decision Making 67-year-old male with past medical history of dementia, diabetes that presents to the ER with hyperglycemia. Vital signs are stable. Patient's well- appearing. Chemistry shows elevated glucose in the 400s without evidence of anion gap. He will be given IV fluids and insulin to correct his glycemia. Bilateral 2+ nonpitting edema noted on his legs. He has a couple of linear superficial abrasions on his left lower leg of unknown time duration. I will cover him with a course of Keflex given that they look erythematous. - Differential Diagnosis uti, sepsis, medication noncompliance, DKA, hyperglycemia Critical care attestation.: If time is entered above; I have spent that time in minutes in the direct care of this critically ill patient, excluding procedure time. ED Disposition Clinical Impression: Hyperglycemia due to type 2 diabetes mellitus, Cellulitis Disposition: DC/TX-70 ANOTHER TYPE HLTHCARE Is pt being admited?: No Condition: Stable Instructions: Diabetes Mellitus Type 2 in Adults (ED), Cellulitis (ED) Additional Instructions: Please have the redness on your legs rechecked in 2-3 days to see if the antibiotics have helped. If you continue to have hyperglycemic episodes, talk with your family doctor about changing your insulin dose. Prescriptions: cephALEXin [Keflex] 500 mg PO Q8HR #15 cap Referrals: PRIMARY CARE, [Primary Care Provider] - 3-5 Days
[2017-11-10 23:27] LABS: Bilirubin,Urine NEG (Negative); Blood,Urine NEG (Negative); Color,Urine Straw (Yellow); Mucus,Urine FEW /HPF; Protein,Urine <15 mg/dL mg/dL (Negative); RBC,Urine < 1.0 /HPF (0.0-6.0); Urobilinogen,Urine < 2.0 mg/dL (<2.0); WBC,Urine < 1.0 /HPF (0.0-6.0)
[2017-11-10 23:55] VITALS: BP 127/77
== END 2017-11-10 23:39 | disposition other institution (70) ==
LOC: ED 18:52
DX: E11.65 Type 2 diabetes mellitus with hyperglycemia (principal); L03.116 Cellulitis of left lower limb; L03.115 Cellulitis of right lower limb; I10 Essential (primary) hypertension; F03.90 Unspecified dementia, unspecified severity, without behavioral disturbance, psychotic disturbance, mood disturbance, and anxiety; E78.00 Pure hypercholesterolemia, unspecified
CPT/HCPCS: 36415; 80053; 81001; 82803; 82962; 84484; 85025; 96361; 96374; 99284; J7030; J1815

== ENCOUNTER 2017-11-13 19:54 | Emergency (ER) | payer MEDICARE ==
[2017-11-13 21:33] LABS: Basophils % (Auto) 0.6 % (0.0-1.8); Eosinophils # (Auto) 0.2 K/mm3 (0.0-0.4); Eosinophils % (Auto) 3.6 % (0.0-4.3); Hematocrit 33.1 % (35.5-45.6); Hemoglobin 11.4 gm/dl (11.8-15.2); Lymphocytes # (Auto) 1.8 K/mm3 (1.2-5.4); Lymphocytes % (Auto) 38.2 % (13.4-35.0); Mean Corpuscular HGB Conc 35 % (32-34); Mean Corpuscular Hemoglobin 32 pg (28-32); Mean Corpuscular Volume 92 fl (84-94); Monocytes # (Auto) 0.4 K/mm3 (0.0-0.8); Monocytes % (Auto) 7.8 % (0.0-7.3); Platelet Count 196 K/mm3 (140-440); Red Cell Distribution Width 14.4 % (13.2-15.2)
[2017-11-13 21:47] LABS: Albumin 3.9 g/dL (3.9-5); BUN/Creatinine Ratio 24; Blood Urea Nitrogen 24 mg/dL (9-20); Calcium 8.4 mg/dL (8.4-10.2); Hemolysis Index 99
[2017-11-13 21:49] LABS: Alanine Aminotransferase 58 units/L (7-56)
[2017-11-13] MEDS ORDERED: ACTIVASE ONE (21:51)
--- NOTE | 2017-11-13 23:00 | XRay Report ---
FINAL REPORT PROCEDURE: XR ANKLE 3+V RT TECHNIQUE: LEFT ankle radiographs, AP, lateral, and oblique views. CPT 61021 HISTORY: ankle pain COMPARISON: No prior studies are available for comparison. FINDINGS: Fracture (s) and/or Dislocation(s): None. Alignment: Normal. Joint space(s): Normal. Soft tissues: Normal. Bone mineralization: Normal. Foreign bodies: None. Calcaneal spurring: None. IMPRESSION: Normal Examination.
[2017-11-14] MEDS ORDERED: TYLENOL #3 PO ONE (01:08)
[2017-11-14] MEDS ORDERED: MOTRIN PO ONE (01:08)
--- NOTE | 2017-11-14 01:09 | Emergency Department Report ---
ED General Adult HPI - General Chief complaint: Extremity Problem,Nontraumatic Stated complaint: RIGHT LEG PAIN Time Seen by Provider: 11/14/17 00:52 Source: patient, RN notes reviewed, old records reviewed Mode of arrival: Ambulatory Limitations: Physical Limitation, Other (patient is a poor historian) - History of Present Illness Initial comments: This is a 67-year-old gentleman who is not known to this provider previously. His past medical history includes diabetes, with oral hypoglycemics and insulin , hypertension, dementia, high cholesterol, presume neuropathic pain. The patient presented to this emergency room on 11/07/2017 for right foot pain after getting out of a car. He had x-rays that were negative and he was managed supportively and expectantly. He presents to the ear with worsened right foot pain. The pain is on the right lateral aspect of the foot, and right medial aspect of the foot. It increases with palpation and decreases with rest. It does not radiate anywhere. The patient thinks his pain has gotten worse. He denies headache, neck pain, chest pain, abdominal pain, shortness of breath, urinary symptoms. He also reports that he has chronic lower extremity edema which is not new, worse under different. -: Gradual Location: right, lower extremity Radiation: other Quality: other Consistency: other Improves with: other Worsens with: other Associated Symptoms: other - Related Data Home Medications Medication Instructions Recorded Confirmed Last Taken Glipizide 03/09/17 Unknown metFORMIN 03/09/17 Unknown Levemir Flextouch 25 unit SUB-Q HS MDD 25 units 11/10/17 11/10/17 Unknown Previous Rx's Medication Instructions Recorded Last Taken Type cephALEXin [Keflex] 500 mg PO Q8HR #15 cap 11/10/17 Unknown Rx Acetaminophen [Tylenol Arthritis] 650 mg PO Q6HR PRN #30 tablet.er 11/14/17 Unknown Rx Ibuprofen [Motrin] 600 mg PO Q8H PRN #30 tablet 11/14/17 Unknown Rx Allergies Allergy/AdvReac Type Severity Reaction Status Date / Time No Known Allergies Allergy Verified 11/13/17 20:38 ED Review of Systems ROS: Stated complaint: RIGHT LEG PAIN Other details as noted in HPI Constitutional: denies: fever Eyes: denies: eye discharge ENT: denies: epistaxis Respiratory: denies: cough Cardiovascular: denies: chest pain Gastrointestinal: denies: abdominal pain Musculoskeletal: arthralgia, myalgia Skin: denies: lesions Neurological: denies: headache Psychiatric: anxiety ED Past Medical Hx - Past Medical History Hx Hypertension: Yes Hx CVA: No Hx Heart Attack/AMI: No Hx Congestive Heart Failure: No Hx Diabetes: Yes (pill and insulin) Hx Deep Vein Thrombosis: No Hx GERD: No Hx Arthritis: No Hx Headaches / Migraines: No Hx Kidney Stones: No Hx Asthma: No Hx COPD: No Hx Dementia: Yes Hx HIV: No Additional medical history: dementia. elevated cholesterol - Social History Smoking Status: Never Smoker Substance Use Type: None - Medications Home Medications: Home Medications Medication Instructions Recorded Confirmed Last Taken Type Glipizide 03/09/17 Unknown History metFORMIN 03/09/17 Unknown History Levemir Flextouch 25 unit SUB-Q HS MDD 25 units 11/10/17 11/10/17 Unknown History cephALEXin [Keflex] 500 mg PO Q8HR #15 cap 11/10/17 Unknown Rx Acetaminophen [Tylenol Arthritis] 650 mg PO Q6HR PRN #30 tablet.er 11/14/17 Unknown Rx Ibuprofen [Motrin] 600 mg PO Q8H PRN #30 tablet 11/14/17 Unknown Rx ED Physical Exam - General Limitations: Physical Limitation General appearance: alert, in no apparent distress - Head Head exam: Present: atraumatic, normocephalic - Eye Eye exam: Present: normal appearance, EOMI. Absent: nystagmus - ENT ENT exam: Present: normal exam, normal orophraynx, mucous membranes moist, normal external ear exam - Neck Neck exam: Present: normal inspection, full ROM. Absent: tenderness, meningismus - Respiratory Respiratory exam: Present: normal lung sounds bilaterally. Absent: respiratory distress - Cardiovascular Cardiovascular Exam: Present: regular rate, normal rhythm, normal heart sounds. Absent: bradycardia, tachycardia, irregular rhythm, systolic murmur, diastolic murmur, rubs, gallop - GI/Abdominal GI/Abdominal exam: Present: soft. Absent: distended, tenderness, guarding, rebound, rigid, pulsatile mass - Rectal Rectal exam: Present: deferred - Extremities Exam Extremities exam: Present: normal inspection, full ROM, pedal edema, other ( there is no pain with passive range of motion of the great toe. The compartments are soft. The right foot is tender on the lateral aspect and medial aspect. There is no plantar tenderness. There is no redness, streaking or pus. Pelvis is stable. No long bony tenderness. Compartments are soft.). Absent: calf tenderness - Back Exam Back exam: Present: normal inspection, full ROM. Absent: tenderness, CVA tenderness (R), paraspinal tenderness, vertebral tenderness - Neurological Exam Neurological exam: Present: alert, CN II-XII intact, other (Extraocular movements intact. Tongue midline. No facial droop. Facial sensation intact to light touch in the V1, V2, V3 distribution bilaterally. 5 and 5 strength in 4 extremities.. Sensation is intact to light touch in 4 extremities.). Absent : motor sensory deficit - Psychiatric Psychiatric exam: Present: normal affect, normal mood - Skin Skin exam: Present: warm, dry, intact, normal color. Absent: rash ED Course Vital Signs 11/13/17 11/13/17 19:53 20:39 Temperature 98.3 F 98.3 F Pulse Rate 78 79 Respiratory 18 16 Rate Blood Pressure 161/63 161/63 O2 Sat by Pulse 98 96 Oximetry - Reevaluation(s) Reevaluation #1: 11/14/17 01:41 I do not appreciate left lower extremity erythema that was described on previous visit. In any event, even if the patient has subclinical cellulitis in the right foot, he was given a course of Keflex on his previous visit. ED Medical Decision Making - Lab Data Result diagrams: 11/13/17 20:51 11/13/17 20:51 Vital Signs 11/13/17 11/13/17 19:53 20:39 Temperature 98.3 F 98.3 F Pulse Rate 78 79 Respiratory 18 16 Rate Blood Pressure 161/63 161/63 O2 Sat by Pulse 98 96 Oximetry Labs 11/13/17 11/13/17 11/13/17 20:51 20:51 20:51 WBC 4.7 RBC 3.60 L Hgb 11.4 L Hct 33.1 L MCV 92 MCH 32 MCHC 35 H RDW 14.4 Plt Count 196 Lymph % (Auto) 38.2 H Stewart % (Auto) 7.8 H Eos % (Auto) 3.6 Baso % (Auto) 0.6 Lymph # 1.8 Stewart # 0.4 Eos # 0.2 Baso # 0.0 Seg Neutrophils % 49.8 Seg Neutrophils # 2.4 Sodium 131 L Potassium 4.4 Chloride 93.5 L Carbon Dioxide 26 Anion Gap 16 BUN 24 H Creatinine 1.0 Estimated GFR > 60 BUN/Creatinine Ratio 24 Glucose 471 H Uric Acid 5.7 Calcium 8.4 Total Bilirubin 0.40 AST 42 H ALT 58 H Alkaline Phosphatase 69 Total Protein 6.3 Albumin 3.9 Albumin/Globulin Ratio 1.6 - Radiology Data Radiology results: report reviewed, image reviewed X-ray of the ankle is negative for acute disease. X-ray of the foot from previous visit was negative for acute disease - Medical Decision Making Differential diagnosis, including but not limited to: Sprain, strain, dislocation, ligamentous injury, incidental hyperglycemia Assessment and plan: 67-year-old female with multiple visits for foot pain, subacute, and related to blunt trauma. He is afebrile with reassuring vital signs. The compartments are soft. He has incidental hyperglycemia without anion gap acidosis. Patient will be given pain medication, he'll be placed in a foot splint, given crutches and he'll remain nonweightbearing. He'll be instructed to follow-up with outpatient orthopedics or podiatry. His hyperglycemia is an acute exacerbation of a chronic problem appears to be poorly managed. The patient can follow up with his primary care doctor for further management for his hyperglycemia. Critical care attestation.: If time is entered above; I have spent that time in minutes in the direct care of this critically ill patient, excluding procedure time. ED Disposition Clinical Impression: Hyperglycemia due to type 2 diabetes mellitus, Right foot pain Disposition: DC-01 TO HOME OR SELFCARE Is pt being admited?: No Does the pt Need Aspirin: No Condition: Stable Instructions: Diabetes Mellitus Type 2 in Adults (ED) Additional Instructions: Avoid weightbearing on the affected extremity. Use the crutches as directed. Take the pain medication as directed. Follow-up with an orthopedist or family member caretaker within the next 5 days for the right foot pain. Return to the ER right away with new pain, worsening pain, migration of pain, projectile vomiting , confusion, fevers, chills, redness, pus, streaking. Please note that blood sugar level was elevated, and this should be followed up by your primary care doctor within the next month. Long-term complications of hyperglycemia includes stroke, disability, paralysis, loss of quality of life. Continue the antibiotics that were prescribed. Under previous emergency room visit. Dr Santos is a local medical doctor. Dr. Briones is a local orthopedist. Dr. Hewitt is a local family member caretaker. Prescriptions: Acetaminophen [Tylenol Arthritis] 650 mg PO Q6HR PRN #30 tablet.er PRN Reason: Pain Ibuprofen [Motrin] 600 mg PO Q8H PRN #30 tablet PRN Reason: Pain Referrals: PRIMARY CARE, [Primary Care Provider] - 3-5 Days RUFINA SANTOS MD [Staff Physician] - 3-5 Days SHUBHAM HEWITT DPM [Staff Physician] - 3-5 Days
[2017-11-14] MEDS ORDERED: HumuLIN R SUB-Q ONE (01:37)
[2017-11-14 03:19] VITALS: BP 146/75
== END 2017-11-14 03:50 | disposition home or self-care (01) ==
LOC: ED 19:54
DX: M79.671 Pain in right foot (principal); E11.65 Type 2 diabetes mellitus with hyperglycemia; I10 Essential (primary) hypertension; F03.90 Unspecified dementia, unspecified severity, without behavioral disturbance, psychotic disturbance, mood disturbance, and anxiety
CPT/HCPCS: 36415; 80053; 82962; 84550; 85025; 96372; J1815; J2997

== ENCOUNTER 2018-09-03 18:08 | Inpatient (IN) | payer MEDICARE ==
[2018-09-03] MEDS ORDERED: HumuLIN R IV ONE ×2 (18:25→22:03)
--- NOTE | 2018-09-03 18:29 | Emergency Department Report ---
ED Extremity Problem HPI - General Stated complaint: FOOT PAIN Time Seen by Provider: 09/03/18 18:17 Source: patient, EMS Limitations: Altered Mental Status (dementia) - History of Present Illness Initial comments: 67-year-old male with a past medical history of diabetes, hypertension, dementia, and elevated cholesterol presents to the Hospital complaining of left foot ulcer. Patient is oriented to self only due to dementia is unable to give any details of history of present illness. Patient apparently is receiving wound care for foot ulcer for approximately 2 months as per EMS. Daughter recommended the patient come to the hospital for evaluation. Accu-Chek in the 400s in route to the hospital. Patient denies any pain or discomfort. Granddaughter arrived to bedside at 8:20 PM. She expresses that the wound care nurse comes out every other day however, family did not realize that the wound was as bad as it was because they have not seen the wound in quite some time. She states patient just had on the top of this great toe at the MTP area. Now he has one on his side/bottom which is bigger in size. daughter Flora Kamara: [phone] - Related Data Home Medications Medication Instructions Recorded Confirmed Last Taken Glipizide 03/09/17 Unknown metFORMIN 03/09/17 Unknown Levemir Flextouch 25 unit SUB-Q HS MDD 25 units 11/10/17 11/10/17 Unknown Previous Rx's Medication Instructions Recorded Last Taken Type cephALEXin [Keflex] 500 mg PO Q8HR #15 cap 11/10/17 Unknown Rx Acetaminophen [Tylenol Arthritis] 650 mg PO Q6HR PRN #30 tablet.er 11/14/17 Unknown Rx Ibuprofen [Motrin] 600 mg PO Q8H PRN #30 tablet 11/14/17 Unknown Rx Allergies Allergy/AdvReac Type Severity Reaction Status Date / Time No Known Allergies Allergy Verified 11/13/17 20:38 ED Review of Systems ROS: Stated complaint: FOOT PAIN Other details as noted in HPI Comment: All other systems reviewed and negative ED Past Medical Hx - Past Medical History Hx Hypertension: Yes Hx CVA: No Hx Heart Attack/AMI: No Hx Congestive Heart Failure: No Hx Diabetes: Yes (pill and insulin) Hx Deep Vein Thrombosis: No Hx GERD: No Hx Arthritis: No Hx Headaches / Migraines: No Hx Kidney Stones: No Hx Asthma: No Hx COPD: No Hx Dementia: Yes Hx HIV: No Additional medical history: dementia. elevated cholesterol - Social History Smoking Status: Never Smoker Substance Use Type: None - Medications Home Medications: Home Medications Medication Instructions Recorded Confirmed Last Taken Type Glipizide 03/09/17 Unknown History metFORMIN 03/09/17 Unknown History Levemir Flextouch 25 unit SUB-Q HS MDD 25 units 11/10/17 11/10/17 Unknown History cephALEXin [Keflex] 500 mg PO Q8HR #15 cap 11/10/17 Unknown Rx Acetaminophen [Tylenol Arthritis] 650 mg PO Q6HR PRN #30 tablet.er 11/14/17 Unknown Rx Ibuprofen [Motrin] 600 mg PO Q8H PRN #30 tablet 11/14/17 Unknown Rx ED Physical Exam - Other Other exam information: General: No limitations, patient is alert in no acute distress Head exam: Atraumatic, normocephalic Eyes exam: Normal appearance ENT: Moist mucous membrane Neck exam: Normal inspection, full range of motion, no meningismus nontender Respiratory exam: Clear to auscultation bilateral, no wheezes, rales, crackles Cardiovascular: Normal rate and rhythm Abdomen: Soft, nondistended, and nontender, with normal bowel sounds, no rebound, or guarding Extremity: Full range of motion, see skin exam Back: Normal Inspection, full range of motion, no tenderness Neurologic: Alert, oriented to self only, cranial nerves intact, equal hand credit consultant and foot dorsiflexion, sensation grossly intact bilaterally Psychiatric: normal affect, normal mood Skin: Left foot ulcer at the medial foot at the MTP joint area measuring 4 x 3 cm with mild yellow exudate. No malodorous discharge. Foot is warm to touch. 2+ DP pulse. ED Course Vital Signs 09/03/18 09/03/18 09/03/18 18:24 18:30 18:40 Temperature Pulse Rate Respiratory 20 Rate Blood Pressure 143/78 O2 Sat by Pulse 98 97 Oximetry 09/03/18 09/03/18 09/03/18 18:42 18:46 19:00 Temperature 98.4 F Pulse Rate 74 Respiratory 20 Rate Blood Pressure 149/73 154/59 157/70 O2 Sat by Pulse 99 98 98 Oximetry 09/03/18 09/03/18 09/03/18 19:15 19:25 19:30 Temperature 98.4 F Pulse Rate Respiratory Rate Blood Pressure 153/67 152/66 O2 Sat by Pulse Oximetry 09/03/18 09/03/18 09/03/18 19:45 20:00 20:15 Temperature Pulse Rate Respiratory Rate Blood Pressure 158/73 139/66 146/60 O2 Sat by Pulse 99 100 98 Oximetry 09/03/18 20:30 Temperature Pulse Rate Respiratory Rate Blood Pressure 148/62 O2 Sat by Pulse 99 Oximetry - Reevaluation(s) Reevaluation #1: 09/03/18 20:44 Lucy is beligerant in the hospital. I explained to her that her grandfather will be admitted for bone infection of her foot and require IV antib iotics. Initially she seemed to be fine with this. Then all of a sudden she was upset because we were "not doing anything for his foot". Patient has IV vancomycin infusing and awaiting admission orders at this time. She wanted to take her grandfather home. I have informed her that we will call Adult Protective Services because he I believe he needs treatment for his foot. She then states she plans on taking the patient to [facility]. I explained to her that is fine but we just want to wait for the IV vancomycin to complete which is currently in progress. I also will call Adult Protective Services because I question whether or not the granddaughter will take the pt to another hospital. I offered to supply the results of today's workup so she may present these results to [facility] or the hospital of her choice. We had to call security to remove the lucy so that pt may continue his iv treatment prior to leaving. Pt has dementia and unable to completely grasp the situation at hand. He is comfortable without complaints at this time. Reevaluation #2: 09/03/18 21:09 I called the pt's daughter (next of kin mentioned), her answered the phone. He requests that I call back in 5 min. 09/03/18 21:28 case was d/w Next of kin on record Flora Kamara (daughter) she is in route to the hospital. I explained the case with her. I will reexplain the case with her after her arrival to determine if they want to be admitted here or leave to go to another hospital Reevaluation #3: 09/03/18 22:00 lucy called the police who escorted her back to the room pt had to be reescorted back to waiting room because she threatened the nurse and told her she cant come in the room to take care of the pt as long as she is there. I am still waiting for the daughter Ms Kamara to arrive to determine pt dispo. 09/03/18 22:34 MS Kamara is in ED. I showed her the xray. [facility] Hospitalist will be reinformed. - Consultations Consultation #1: 09/03/18 22:[address] Hewitt podiatry (case was not discussed tonight pt can be consulted in the am) ED Medical Decision Making - Lab Data Result diagrams: 09/03/18 18:45 09/03/18 18:45 Lab Results 09/03/18 09/03/18 09/03/18 Range/Units 18:45 18:45 18:45 WBC 6.8 (4.5-11.0) K/mm3 RBC 3.48 L (3.65-5.03) M/mm3 Hgb 10.7 L (11.8-15.2) gm/dl Hct 30.5 L (35.5-45.6) % MCV 88 (84-94) fl MCH 31 (28-32) pg MCHC 35 H (32-34) % RDW 13.3 (13.2-15.2) % Plt Count 287 (140-440) K/mm3 Lymph % (Auto) 20.9 (13.4-35.0) % [place] % (Auto) 7.4 H (0.0-7.3) % Eos % (Auto) 2.3 (0.0-4.3) % Baso % (Auto) 1.3 (0.0-1.8) % Lymph # 1.4 (1.2-5.4) K/mm3 [place] # 0.5 (0.0-0.8) K/mm3 Eos # 0.2 (0.0-0.4) K/mm3 Baso # 0.1 (0.0-0.1) K/mm3 Seg Neutrophils % 68.1 (40.0-70.0) % Seg Neutrophils # 4.6 (1.8-7.7) K/mm3 VBG pH (7.320-7.420) Sodium 138 (137-145) mmol/L Potassium 4.0 (3.6-5.0) mmol/L Chloride 99.3 (98-107) mmol/L Carbon Dioxide 27 (22-30) mmol/L Anion Gap 16 mmol/L BUN 26 H (9-20) mg/dL Creatinine 1.2 (0.8-1.5) mg/dL Estimated GFR > 60 ml/min BUN/Creatinine Ratio 22 % Glucose 367 H (75-100) mg/dL POC Glucose (70-105) Lactic Acid 1.70 (0.7-2.0) mmol/L Calcium 8.6 (8.4-10.2) mg/dL Total Bilirubin 0.30 (0.1-1.2) mg/dL AST 14 (5-40) units/L ALT 17 (7-56) units/L Alkaline Phosphatase 88 (35-129) units/L Total Protein 7.0 (6.3-8.2) g/dL Albumin 2.6 L (3.9-5) g/dL Albumin/Globulin Ratio 0.6 % 09/03/18 09/03/18 Range/Units 18:45 19:03 WBC (4.5-11.0) K/mm3 RBC (3.65-5.03) M/mm3 Hgb (11.8-15.2) gm/dl Hct (35.5-45.6) % MCV (84-94) fl MCH (28-32) pg MCHC (32-34) % RDW (13.2-15.2) % Plt Count (140-440) K/mm3 Lymph % (Auto) (13.4-35.0) % [place] % (Auto) (0.0-7.3) % Eos % (Auto) (0.0-4.3) % Baso % (Auto) (0.0-1.8) % Lymph # (1.2-5.4) K/mm3 [place] # (0.0-0.8) K/mm3 Eos # (0.0-0.4) K/mm3 Baso # (0.0-0.1) K/mm3 Seg Neutrophils % (40.0-70.0) % Seg Neutrophils # (1.8-7.7) K/mm3 VBG pH 7.394 (7.320-7.420) Sodium (137-145) mmol/L Potassium (3.6-5.0) mmol/L Chloride (98-107) mmol/L Carbon Dioxide (22-30) mmol/L Anion Gap mmol/L BUN (9-20) mg/dL Creatinine (0.8-1.5) mg/dL Estimated GFR ml/min BUN/Creatinine Ratio % Glucose (75-100) mg/dL POC Glucose 345 H (70-105) Lactic Acid (0.7-2.0) mmol/L Calcium (8.4-10.2) mg/dL Total Bilirubin (0.1-1.2) mg/dL AST (5-40) units/L ALT (7-56) units/L Alkaline Phosphatase (35-129) units/L Total Protein (6.3-8.2) g/dL Albumin (3.9-5) g/dL Albumin/Globulin Ratio % - Radiology Data Radiology results: report reviewed PROCEDURE: XR FOOT 3+V LT TECHNIQUE: Frontal, lateral, oblique views left foot HISTORY: foot ulcer, infection COMPARISONS: None FINDINGS: There is erosive change involving the distal diaphysis, metaphysis and epiphysis of the great toe metatarsal and of the proximal epiphysis and metaphysis of the proximal phalanx of the great toe. There is associated soft tissue swelling of the adjacent soft tissues with foci of soft tissue calcification. There is the appearance of a soft tissue defect on the medial aspect of the great toe at the level of the metatarsal phalangeal joint. The bony structures are otherwise unremarkable. IMPRESSION: 1. Bony erosive change involving the great toe metatarsal and proximal phalanx with associated abnormal adjacent soft tissues with soft tissue calcification and ulcer formation. Infectious and noninfectious etiologies, to include osteoarthritis, need to be considered. If further imaging is required, MRI may be helpful. This document is electronically signed by Maribel Kan MD., September 03 2018 07:33:36 PM ET - Medical Decision Making pt with chronic lft foot ulcer now warm to touch xr foot shows bony erosion suggestive of osteomyelitis. no signs of sepsis/septic shock a this time pt tx with vancomycin hyperglycemia, no dka, regular insulin provided blood cultures pending plan to admit to hospital for further tx esr pending at dispo pt [facility] plans to sign the pt out ama she complained that we were not doing anything for his foot although IV Vanc was infusing we had security remove her so that infusion can be complete prior to s/o ama because I believe that it is in the best interest of the pt She may or may not go to another hospital Adult protective services will be notified to check on the pt since lucy initially said she was going to take pt home and I believe he needs some further medical care. copy of xray on disc, report, and lab results have been printed to be presented to provider to take to another hospital. After daugher Ms Kamara arrival, she is agreeable to pt being admitted here Additional insulin provided for persistent hyperglycemia Consult ordered for podiatry in the am ESR is significantly elevated Hospitalist re-informed of admission at 10:36p - Differential Diagnosis cellulitis, osteomyelitis, infected ulcer Critical Care Time: No Critical care attestation.: If time is entered above; I have spent that time in minutes in the direct care of this critically ill patient, excluding procedure time. ED Disposition Clinical Impression: Foot ulcer, left, Infected ulcer of skin, Osteomyelitis of left foot, Uncontrolled diabetes mellitus Disposition: [id number] TO HOME OR SELFCARE Is pt being admited?: Yes Condition: Stable Additional Instructions: We wanted to admit you to the hospital for IV antibiotics for your infected foot ulcer with bone involvement Your family has declined admission and further IV antibiotics You received one dose of IV Vancomycin prior to leaving. Please go to the hospital of your choice for additional care Take the xray disc and results provided to the hospital of your choice Your blood cultures are also pending Time of Disposition: 22:36 (hosptialist informed)
[2018-09-03 19:03] LABS: Basophils # (Auto) 0.1 K/mm3 (0.0-0.1); Basophils % (Auto) 1.3 % (0.0-1.8); Eosinophils # (Auto) 0.2 K/mm3 (0.0-0.4); Eosinophils % (Auto) 2.3 % (0.0-4.3); Hematocrit 30.5 % (35.5-45.6); Hemoglobin 10.7 gm/dl (11.8-15.2); Lymphocytes # (Auto) 1.4 K/mm3 (1.2-5.4); Lymphocytes % (Auto) 20.9 % (13.4-35.0); Mean Corpuscular HGB Conc 35 % (32-34); Mean Corpuscular Volume 88 fl (84-94); Monocytes # (Auto) 0.5 K/mm3 (0.0-0.8); Monocytes % (Auto) 7.4 % (0.0-7.3); Platelet Count 287 K/mm3 (140-440); Red Blood Count 3.48 M/mm3 (3.65-5.03); Red Cell Distribution Width 13.3 % (13.2-15.2)
[2018-09-03] MEDS ORDERED: VANCOMYCIN/NS 1 GM/250 ML 1 GM/250 ML BAG IV ONE (19:24)
[2018-09-03 19:26] LABS: Alanine Aminotransferase 17 units/L (7-56); Albumin 2.6 g/dL (3.9-5); BUN/Creatinine Ratio 22; Blood Urea Nitrogen 26 mg/dL (9-20); Calcium 8.6 mg/dL (8.4-10.2); Hemolysis Index 6
--- NOTE | 2018-09-03 19:35 | XRay Report ---
PROCEDURE: XR FOOT 3+V LT TECHNIQUE: Frontal, lateral, oblique views left foot HISTORY: foot ulcer, infection COMPARISONS: None FINDINGS: There is erosive change involving the distal diaphysis, metaphysis and epiphysis of the great toe met atarsal and of the proximal epiphysis and metaphysis of the proximal phalanx of the great toe. There is associated soft tissue swelling of the adjacent soft tissues with foci of soft tissue calcificatio n. There is the appearance of a soft tissue defect on the medial aspect of the great toe at the level of the metatarsal phalangeal joint. The bony structures are otherwise unremarkable. IMPRESSION: 1. Bony erosive change involving the great toe metatarsal and proximal phalanx with associated abnorm al adjacent soft tissues with soft tissue calcification and ulcer formation. Infectious and noninfectious etiologies, to include osteoarthritis, need to be considered. If further imaging is required, MRI may be helpful. This document is electronically signed by Maribel Kan MD., September 03 2018 07:33:36 PM ET
[2018-09-03] MEDS ORDERED: PERCOCET 5/325 PO PRN (23:14)
[2018-09-03] MEDS ORDERED: SODIUM CHLORIDE FLUSH SYRINGE 10 ML IV PRN (23:14)
[2018-09-03] MEDS ORDERED: ZOFRAN IV PRN (23:14)
[2018-09-03] MEDS ORDERED: TYLENOL PO PRN (23:14)
[2018-09-03] MEDS ORDERED: D50W (25GM) Syringe IV PRN (23:32)
--- NOTE | 2018-09-03 23:36 | History and Physical Report ---
History of Present Illness Date of examination: 09/03/18 Chief complaint: Worsening left foot ulcer History of present illness: Patient is a 67 year old -[place] male with history of diabetes mellitus type 2 and chronic left foot ulcer who presented to the ED on account of worsening left foot ulcer. Of note, history was obtained from both the patient and the daughter was at the bedside. The stated that the patient has had the ulcer on his left foot for about 3 months and he was being monitored daily by the home health nurse. Today, the patient's grandson saw the ulcer and felt that it was worse than it had been, with associated non-foul swelling drainage. So, the patient was brought to the ED for further evaluation. Patient denies pain, fever, chills, chest pain, shortness of breath, palpitation, headaches, nausea, vomiting or lightheadedness. Past History Past Medical History: anemia, diabetes, hypertension, hyperlipidemia, other (dementia, diabetic left foot ulcer) Past Surgical History: No surgical history Social history: no significant social history (he denies current tobacco, alcohol or illicit drug use) Family history: other (significant for diabetes and hypertension in multiple family members) Medications and Allergies Allergies Allergy/AdvReac Type Severity Reaction Status Date / Time No Known Allergies Allergy Verified 11/13/17 20:38 Home Medications Medication Instructions Recorded Confirmed Last Taken Type Glipizide 03/09/17 Unknown History metFORMIN 03/09/17 Unknown History Levemir Flextouch 25 unit SUB-Q HS MDD 25 units 11/10/17 11/10/17 Unknown History cephALEXin [Keflex] 500 mg PO Q8HR #15 cap 11/10/17 Unknown Rx Acetaminophen [Tylenol Arthritis] 650 mg PO Q6HR PRN #30 tablet.er 11/14/17 Unknown Rx Ibuprofen [Motrin] 600 mg PO Q8H PRN #30 tablet 11/14/17 Unknown Rx Active Meds: Active Medications Acetaminophen (Tylenol) 650 mg PO Q4H PRN PRN Reason: Pain MILD(1-3)/Fever >100.5/ARAGON Dextrose (D50w (25gm) Syringe) 50 ml IV PRN PRN PRN Reason: Hypoglycemia Sodium Chloride (Nacl 0.9% 1000 Ml) 1,000 mls @ 100 mls/hr IV DIRECT MOID Piperacillin Sod/Tazobactam Sod (Zosyn/Ns 3.375gm/50ml) 3.375 gm in 50 mls @ 100 mls/hr IV Q8HR OMID; Protocol Insulin Glargine (Lantus) 20 units SUB-Q BID OMID Insulin Human Lispro (Humalog) 0 unit SUB-Q ACHS OMID; Protocol Ondansetron HCl (Zofran) 4 mg IV Q8H PRN PRN Reason: Nausea And Vomiting Oxycodone/Acetaminophen (Percocet 5/325) 1 tab PO Q6H PRN PRN Reason: Pain, Moderate (4-6) Sodium Chloride (Sodium Chloride Flush Syringe 10 Ml) 10 ml IV BID OMID Sodium Chloride (Sodium Chloride Flush Syringe 10 Ml) 10 ml IV PRN PRN PRN Reason: LINE FLUSH Review of Systems All systems: negative (except as documented in the HPI, 14 point system reviewed were negative) Exam - Constitutional Vitals: Temp Pulse Resp BP Pulse Ox 98.4 F 74 20 148/62 99 09/03/18 19:25 09/03/18 18:42 09/03/18 18:42 09/03/18 20:30 09/03/18 20:30 General appearance: Present: no acute distress - EENT Eyes: Present: PERRL, EOM intact ENT: hearing intact, clear oral mucosa - Neck Neck: Present: supple - Respiratory Respiratory effort: normal Respiratory: bilateral: CTA - Cardiovascular Rhythm: regular Heart Sounds: Present: S1 & S2 - Extremities Extremity abnormal: edema (in the left lower extremity) - Abdominal General gastrointestinal: Present: soft, non-tender, non-distended, normal bowel sounds Male genitourinary: Present: deferred - Integumentary Integumentary: Present: erythema (with ulcer in the LT mid-foot) - Musculoskeletal Musculoskeletal: strength equal bilaterally - Psychiatric Psychiatric: cooperative - Neurologic Neurologic: CNII-XII intact Results - Labs CBC & Chem 7: 09/03/18 18:45 09/03/18 18:45 Labs: Laboratory Last Values WBC 6.8 K/mm3 (4.5-11.0) 09/03/18 18:45 RBC 3.48 M/mm3 (3.65-5.03) L 09/03/18 18:45 Hgb 10.7 gm/dl (11.8-15.2) L 09/03/18 18:45 Hct 30.5 % (35.5-45.6) L 09/03/18 18:45 MCV 88 fl (84-94) 09/03/18 18:45 MCH 31 pg (28-32) 09/03/18 18:45 MCHC 35 % (32-34) H 09/03/18 18:45 RDW 13.3 % (13.2-15.2) 09/03/18 18:45 Plt Count 287 K/mm3 (140-440) 09/03/18 18:45 Lymph % (Auto) 20.9 % (13.4-35.0) 09/03/18 18:45 [place] % (Auto) 7.4 % (0.0-7.3) H 09/03/18 18:45 Eos % (Auto) 2.3 % (0.0-4.3) 09/03/18 18:45 Baso % (Auto) 1.3 % (0.0-1.8) 09/03/18 18:45 Lymph # 1.4 K/mm3 (1.2-5.4) 09/03/18 18:45 [place] # 0.5 K/mm3 (0.0-0.8) 09/03/18 18:45 Eos # 0.2 K/mm3 (0.0-0.4) 09/03/18 18:45 Baso # 0.1 K/mm3 (0.0-0.1) 09/03/18 18:45 Seg Neutrophils % 68.1 % (40.0-70.0) 09/03/18 18:45 Seg Neutrophils # 4.6 K/mm3 (1.8-7.7) 09/03/18 18:45 ESR > 140.0 mm/Hr (0-20) 09/03/18 18:45 VBG pH 7.394 (7.320-7.420) 09/03/18 18:45 Sodium 138 mmol/L (137-145) 09/03/18 18:45 Potassium 4.0 mmol/L (3.6-5.0) 09/03/18 18:45 Chloride 99.3 mmol/L (98-107) 09/03/18 18:45 Carbon Dioxide 27 mmol/L (22-30) 09/03/18 18:45 16 mmol/L 09/03/18 18:45 BUN 26 mg/dL (9-20) H 09/03/18 18:45 1.2 mg/dL (0.8-1.5) 09/03/18 18:45 Estimated GFR > 60 ml/min 09/03/18 18:45 22 % 09/03/18 18:45 Glucose 367 mg/dL (75-100) H 09/03/18 18:45 POC Glucose 315 (70-105) H 09/03/18 21:28 Lactic Acid 1.50 mmol/L (0.7-2.0) 09/03/18 21:53 Calcium 8.6 mg/dL (8.4-10.2) 09/03/18 18:45 0.30 mg/dL (0.1-1.2) 09/03/18 18:45 AST 14 units/L (5-40) 09/03/18 18:45 ALT 17 units/L (7-56) 09/03/18 18:45 88 units/L (35-129) 09/03/18 18:45 7.0 g/dL (6.3-8.2) 09/03/18 18:45 2.6 g/dL (3.9-5) L 09/03/18 18:45 0.6 % 09/03/18 18:45 Assessment and Plan Assessment and plan: Diabetic left foot ulcer -Left foot x-ray indicative of infectious versus noninfectious etiology -On IV antibiotics with vancomycin and Zosyn -Further evaluation with MRI left foot to rule out osteomyelitis -Podiatry consulted in the ED DM2 with hyperglycemia -On SSI and Lantus -We'll check hemoglobin A1c level Hypertension -Stable Dementia -Stable Anemia of chronic disease -H/H stable DVT prophylaxis with Lovenox Disposition: Patient will be admitted on inpatient status with plan for discharge when medically stable Time spent: 38 minutes
[2018-09-03] MEDS ORDERED: LANTUS SUB-Q SCH (23:45)
[2018-09-03] MEDS ORDERED: VANCOMYCIN PHARMACY TO DOSE IV SCH (23:45)
[2018-09-04] MEDS: ZOSYN/NS 3.375GM/50ML 3.375 GM/50 ML BAG IV SCH ×3 (01:10→16:42)
[2018-09-04] MEDS: NACL 0.9% 1000 ML 1,000 ML IV SCH ×2 (01:10→12:53)
[2018-09-04 04:09] LABS: Bilirubin,Urine NEG (Negative); Blood,Urine SM (Negative); Color,Urine Yellow (Yellow); Mucus,Urine FEW /HPF; Protein,Urine <15 mg/dL mg/dL (Negative); Urobilinogen,Urine < 2.0 mg/dL (<2.0)
[2018-09-04 07:48] LABS: BUN/Creatinine Ratio 22; Blood Urea Nitrogen 24 mg/dL (9-20); Calcium 8.1 mg/dL (8.4-10.2); Hemolysis Index 0
--- NOTE | 2018-09-04 08:22 | Progress Note ---
Assessment and Plan Assessment and plan: Patient is a 67 yo -[place] man with history of diabetes mellitus type 2, dementia, dyslipidemia, hypertension and chronic left foot ulcer who presented to [facility] ED due to worsening left foot ulcer. * 3v Left XRAy IMPRESSION: 1. Bony erosive change involving the great toe metatarsal and proximal phalanx with associated abnormal adjacent soft tissues with soft tissue calcification and ulcer formation. Infectious and noninfectious etiologies, to include osteoarthritis, need to be considered. If further imaging is required, MRI may be helpful. Diabetic left foot ulcer -Evaluate for Osteomyelitis -On IV antibiotics with vancomycin and Zosyn -Further evaluation with MRI left foot to rule out osteomyelitis -Podiatry consulted in the ED, not available here, consulted ID Dr. Aguiar not available until , consulted Ortho DM2 with hyperglycemia -On SSI and Lantus -We'll check hemoglobin A1c level==>14.8 Severe malnutrition, poa -Consult Semiconductor Processing Technician Acute metabolic encephalopathy, poa -Supportive care Hypertension -Stable Dementia -Stable Anemia of chronic disease -H/H stable DVT prophylaxis with Lovenox Disposition: Patient will be admitted on inpatient status 12:16pm I called daughter Flora at [phone], Lj, her answered and gave me ==>[phone]. I spoke Flora and gave update and also answered all questions. History Interval history: Patient was seen and examined. Follow-up on current diagnosis of DM foot ulcer. No overnight events reported to me. Patient denies any chest pain, shortness breath, nausea/vomiting or severe headaches. Imaging, nursing note, chart, labs and old chart reviewed. Discussed with patient. Hospitalist Physical - Physical exam Narrative exam: Gen: thin frail, chronically ill appearing, NAD, Awake, Alert, Orientated x 2, missed year HEENT: NCAT, EOMI, PERRL, OP Clear Neck: supple, no adenopathy, no thyromegaly, no JVD CVS/Heart: RRR, normal S1S2, pulses present bilaterally Chest/Lungs: CTA B, Symmetrical chest expansion, good air entry bilaterally GI/Abdomen: soft, NTND, good bowel sounds, no guarding or rebound /Bladder: no suprapubic tenderness, no CVA or paraspinal tenderness Extermity/Skin: left lateral wet foot ulcer MSK: FROM x 4 Neuro: CN 2-12 grossly intact, no new focal deficits Psych: calm - Constitutional Vitals: Temp Pulse Resp BP Pulse Ox 98.4 F 71 16 133/68 99 09/04/18 05:57 09/04/18 05:57 09/04/18 05:57 09/04/18 05:57 09/04/18 05:57 General appearance: Present: no acute distress Results - Labs CBC & Chem 7: 09/03/18 18:45 09/04/18 05:44 Labs: Laboratory Last Values WBC 6.8 K/mm3 (4.5-11.0) 09/03/18 18:45 RBC 3.48 M/mm3 (3.65-5.03) L 09/03/18 18:45 Hgb 10.7 gm/dl (11.8-15.2) L 09/03/18 18:45 Hct 30.5 % (35.5-45.6) L 09/03/18 18:45 MCV 88 fl (84-94) 09/03/18 18:45 MCH 31 pg (28-32) 09/03/18 18:45 MCHC 35 % (32-34) H 09/03/18 18:45 RDW 13.3 % (13.2-15.2) 09/03/18 18:45 Plt Count 287 K/mm3 (140-440) 09/03/18 18:45 Lymph % (Auto) 20.9 % (13.4-35.0) 09/03/18 18:45 [place] % (Auto) 7.4 % (0.0-7.3) H 09/03/18 18:45 Eos % (Auto) 2.3 % (0.0-4.3) 09/03/18 18:45 Baso % (Auto) 1.3 % (0.0-1.8) 09/03/18 18:45 Lymph # 1.4 K/mm3 (1.2-5.4) 09/03/18 18:45 [place] # 0.5 K/mm3 (0.0-0.8) 09/03/18 18:45 Eos # 0.2 K/mm3 (0.0-0.4) 09/03/18 18:45 Baso # 0.1 K/mm3 (0.0-0.1) 09/03/18 18:45 Seg Neutrophils % 68.1 % (40.0-70.0) 09/03/18 18:45 Seg Neutrophils # 4.6 K/mm3 (1.8-7.7) 09/03/18 18:45 ESR > 140.0 mm/Hr (0-20) 09/03/18 18:45 VBG pH 7.394 (7.320-7.420) 09/03/18 18:45 Sodium 141 mmol/L (137-145) 09/04/18 05:44 Potassium 3.7 mmol/L (3.6-5.0) 09/04/18 05:44 Chloride 101.1 mmol/L (98-107) 09/04/18 05:44 Carbon Dioxide 28 mmol/L (22-30) 09/04/18 05:44 16 mmol/L 09/04/18 05:44 BUN 24 mg/dL (9-20) H 09/04/18 05:44 1.1 mg/dL (0.8-1.5) 09/04/18 05:44 Estimated GFR > 60 ml/min 09/04/18 05:44 22 % 09/04/18 05:44 Glucose 308 mg/dL (75-100) H 09/04/18 05:44 POC Glucose 102 (70-105) 09/04/18 00:34 14.8 % (4-6) H 09/04/18 05:44 Lactic Acid 1.50 mmol/L (0.7-2.0) 09/03/18 21:53 Calcium 8.1 mg/dL (8.4-10.2) L 09/04/18 05:44 0.30 mg/dL (0.1-1.2) 09/03/18 18:45 AST 14 units/L (5-40) 09/03/18 18:45 ALT 17 units/L (7-56) 09/03/18 18:45 88 units/L (35-129) 09/03/18 18:45 7.0 g/dL (6.3-8.2) 09/03/18 18:45 2.6 g/dL (3.9-5) L 09/03/18 18:45 0.6 % 09/03/18 18:45 Yellow (Yellow) 09/04/18 03:50 Clear (Clear) 09/04/18 03:50 5.0 (5.0-7.0) 09/04/18 03:50 Ur Specific [place] 1.022 (1.003-1.030) 09/04/18 03:50 <15 mg/dl mg/dL (Negative) 09/04/18 03:50 >=500 mg/dL (Negative) 09/04/18 03:50 Neg mg/dL (Negative) 09/04/18 03:50 Sm (Negative) 09/04/18 03:50 Neg (Negative) 09/04/18 03:50 Neg (Negative) 09/04/18 03:50 < 2.0 mg/dL (<2.0) 09/04/18 03:50 Ur Leukocyte Esterase Neg (Negative) 09/04/18 03:50 1.0 /HPF (0.0-6.0) 09/04/18 03:50 4.0 /HPF (0.0-6.0) 09/04/18 03:50 U Epithel Cells (Auto) < 1.0 /HPF (0-13.0) 09/04/18 03:50 Few /HPF 09/04/18 03:50 Active Medications - Current Medications Current Medications: Generic Name Dose Route Start Last Admin Trade Name Freq PRN Reason Stop Dose Admin Acetaminophen 650 mg 09/03/18 23:14 Tylenol PO Q4H PRN Pain MILD(1-3)/Fever >100.5/ARAGON Dextrose 50 ml 09/03/18 23:32 D50w (25gm) Syringe IV PRN PRN Hypoglycemia Enoxaparin Sodium 40 mg 09/04/18 10:00 Lovenox SUB-Q DAILY [facility] Hydralazine HCl 10 mg 09/04/18 00:08 Apresoline IV Q4HR PRN Blood Pressure Sodium Chloride 1,000 mls @ 100 mls/hr 09/03/18 23:45 09/04/18 01:10 Nacl 0.9% 1000 Ml IV 100 mls/hr DIRECT [facility] Administration Piperacillin Sod/Tazobactam Sod 3.375 gm in 50 mls @ 100 mls/hr 09/03/18 23:00 09/04/18 06:39 Zosyn/Ns 3.375gm/50ml IV 100 mls/hr Q8H [facility] Administration Protocol Vancomycin HCl 1 gm in 250 mls @ 166.667 mls/hr 09/04/18 20:00 Vancomycin/Ns 1 Gm/250 Ml IV Q24H [facility] Insulin Glargine 20 units 09/03/18 23:45 09/04/18 02:43 Lantus SUB-Q Not Given BID [facility] Insulin Human Lispro 0 unit 09/04/18 07:30 Humalog SUB-Q ACHS [facility] Protocol Ondansetron HCl 4 mg 09/03/18 23:14 Zofran IV Q8H PRN Nausea And Vomiting Oxycodone/Acetaminophen 1 tab 09/03/18 23:14 Percocet 5/325 PO Q6H PRN Pain, Moderate (4-6) Sodium Chloride 10 ml 09/04/18 10:00 Sodium Chloride Flush Syringe 10 Ml IV BID [facility] Sodium Chloride 10 ml 09/03/18 23:14 Sodium Chloride Flush Syringe 10 Ml IV PRN PRN LINE FLUSH
[2018-09-04] MEDS: SODIUM CHLORIDE FLUSH SYRINGE 10 ML IV SCH ×2 (09:11→21:37)
[2018-09-04] MEDS: HumaLOG SUB-Q SCH ×4 (09:12→21:36)
[2018-09-04] MEDS ORDERED: LOVENOX SUB-Q SCH (10:00)
--- NOTE | 2018-09-04 10:30 | Vascular Lab Report ---
EXAM: VL VENOUS DUPLEX LE LT HISTORY: LT LE EDEMA TECHNIQUE: The lower extremity veins were interrogated with a high-frequency linear transducer, empl oying grayscale imaging, duplex Doppler and color flow Doppler imaging. COMPARISON: None available. FINDINGS: Interrogation of the common femoral veins, superficial femoral veins, popliteal veins, calf veins, an d saphenous veins demonstrates no intraluminal filling defects, no lack of vein compressibility, or n o absence of intraluminal color flow Doppler signal. The findings are inconsistent with deep venous t hrombosis. There is no evidence for luminal thrombosis of the saphenous vein or superficial venous system. No popliteal masses reminiscent of a Fonseca's cyst is seen bilaterally. No gross arterial aneurysm is incidentally noted. There is shotty left inguinal lymph nodes in keeping with reactive lymphadenopathy. IMPRESSION: 1. No evidence for DVT seen bilaterally. 2. No abnormal fluid collection or Fonseca's cyst seen. 3. Shotty left inguinal lymph nodes in keeping with reactive lymphadenopathy. This document is electronically signed by Neetu Boudreaux MD., September 04 2018 10:29:00 AM ET
--- NOTE | 2018-09-04 10:31 | Consultation ---
History of Present Illness - Reason for Consult Consult date: 09/04/18 Left MTP joint osteomylitis, infected diabetic ulcer Requesting physician: VEL VILLALPANDO - History of Present Illness This patient is a 67-year old male with a past medical history of diabetes, hypertension, dementia and elevated cholesterol presents to the ED on 09/03/18 with complaints of left foot ulcer. History was obtained by patient and daughter at bedside. The patient has had an ulcer on his left foot for about 3 month and was being monitored daily by the home health nurse.After looking at the foot, the family felt like the ulcer had gotten worse with associated non-foul smelling drainage. On admission WBC 6.8, Creatinine 1.1, Glucose 308, Temperature 98.4, HR 75. U/A w/o pyuria, LE negative. Left foot xray shows allie erosive change involving the great toe metatarsal and proximal phalanx with associated soft tissue calcification and ulcer formation.Infectious and noninfectious etiologies, to include osteoarthritis. Duplex scan shows no evidence for DVT seen bilaterally. No abnormal fluid collection or Fonseca's cyst seen. Shotty left inguinal lymph nodes in keeping with reactive lymphadenopathy Blood cultures show no growth thus far. Review of Systems: General: No fever, chills, nightsweats, unintentional weight change, or change in appetite Cutaneous: no rash, pruritus Head: no headaches or injury Eyes: no changes in vision, eye pain, double vision Ears: no ear pain, ear discharge, ringing or hearing loss Nose: no nose bleeding, stuffiness Mouth & throat: no bleeding gums, no horseness, no dental problems, or swollen glands Neck: no pain, node enlargement/lumps, tyroid enlargement or tenderness Respiratory: no cough, wheezing, sputum, hemoptysis, pleuritic chest pain Cardiovascular: no chest pain, leg edema, cyanosis, [place], orthopnea Musculoskeletal: left foot diabetic foot ulceration, MTP joint,, edematous with mild odor. Gastrointestinal: no nausea, vomiting, hematemesis, diarrhea, constipation, me bonnie, bright red blood in stools, fecal incontinence, jaundice Neurogical: no seizures, no headaches, no weakness + dementia Psychiatric: stable mood; no excessive anxiety, sadness or moodiness Past History Past Medical History: anemia, diabetes, hypertension, hyperlipidemia, other (dementia, diabetic left foot ulcer) Past Surgical History: No surgical history Social history: no significant social history (he denies current tobacco, alcohol or illicit drug use) Family history: other (significant for diabetes and hypertension in multiple family members) Medications and Allergies Allergies Allergy/AdvReac Type Severity Reaction Status Date / Time No Known Allergies Allergy Verified 11/13/17 20:38 Home Medications Medication Instructions Recorded Confirmed Last Taken Type Glipizide 03/09/17 Unknown History metFORMIN 03/09/17 Unknown History Levemir Flextouch 25 unit SUB-Q HS MDD 25 units 11/10/17 11/10/17 Unknown History cephALEXin [Keflex] 500 mg PO Q8HR #15 cap 11/10/17 Unknown Rx Acetaminophen [Tylenol Arthritis] 650 mg PO Q6HR PRN #30 tablet.er 11/14/17 Unknown Rx Ibuprofen [Motrin] 600 mg PO Q8H PRN #30 tablet 11/14/17 Unknown Rx Active Meds: Active Medications Acetaminophen (Tylenol) 650 mg PO Q4H PRN PRN Reason: Pain MILD(1-3)/Fever >100.5/ARAGON Dextrose (D50w (25gm) Syringe) 50 ml IV PRN PRN PRN Reason: Hypoglycemia Heparin Sodium (Porcine) (Heparin) 5,000 unit SUB-Q Q12HR [facility] Hydralazine HCl (Apresoline) 10 mg IV Q4HR PRN PRN Reason: Blood Pressure Sodium Chloride (Nacl 0.9% 1000 Ml) 1,000 mls @ 100 mls/hr IV DIRECT [facility] Last Admin: 09/04/18 01:10 Dose: 100 mls/hr Documented by: Piperacillin Sod/Tazobactam Sod (Zosyn/Ns 3.375gm/50ml) 3.375 gm in 50 mls @ 100 mls/hr IV Q8H [facility]; Protocol Last Admin: 09/04/18 06:39 Dose: 100 mls/hr Documented by: Vancomycin HCl (Vancomycin/Ns 1 Gm/250 Ml) 1 gm in 250 mls @ 166.667 mls/hr IV Q24H [facility] Insulin Glargine (Lantus) 20 units SUB-Q QHS [facility] Insulin Human Lispro (Humalog) 0 unit SUB-Q ACHS [facility]; Protocol Last Admin: 09/04/18 09:12 Dose: 4 unit Documented by: Ondansetron HCl (Zofran) 4 mg IV Q8H PRN PRN Reason: Nausea And Vomiting Oxycodone/Acetaminophen (Percocet 5/325) 1 tab PO Q6H PRN PRN Reason: Pain, Moderate (4-6) Sodium Chloride (Sodium Chloride Flush Syringe 10 Ml) 10 ml IV BID OMID Last Admin: 09/04/18 09:11 Dose: 10 ml Documented by: Sodium Chloride (Sodium Chloride Flush Syringe 10 Ml) 10 ml IV PRN PRN PRN Reason: LINE FLUSH Physical Examination - Physical Exam Narrative exam: Constitutional: Alert, cooperative. No acute distress. Head, Ears, Nose: Normocephalic, atraumatic. External ears, nose normal Eyes: Conjunctivae/corneas clear. No icterus. No ptosis. Neck: Supple, no meningeal signs Oral: no thrush Cardiovascular: S1, S2 normal. Respiratory: Good air entry, clear to auscultation bilaterally GI: Soft, non-tender; bowel sounds normal. No peritoneal signs Musculoskeletal: diabetic ulcer left MTP joint, minimal brownish green drainage with mild odor. Left foot edematous, decreased palpaple pulses. Skin: same as above Hem/Lymphatic: No palpable cervical or supraclavicular nodes. No lymphangitis Psych: Mood ok. Affect normal Neurological: Awake, alert, follows commands. oriented. - Constitutional Vitals: Vital Signs Temp Pulse Resp BP Pulse Ox 98.4 F 71 16 133/68 99 09/04/18 05:57 09/04/18 05:57 09/04/18 05:57 09/04/18 05:57 09/04/18 05:57 Temperature -Last 24 Hours Temperature 98.4 F Temperature 99.0 F Temperature 98.4 F Temperature 98.4 F Results - Labs CBC & Chem 7: 09/03/18 18:45 09/04/18 05:44 Labs: Abnormal lab results 09/03/18 09/03/18 09/03/18 Range/Units 18:45 18:45 19:03 RBC 3.48 L (3.65-5.03) M/mm3 Hgb 10.7 L (11.8-15.2) gm/dl Hct 30.5 L (35.5-45.6) % MCHC 35 H (32-34) % [place] % (Auto) 7.4 H (0.0-7.3) % BUN 26 H (9-20) mg/dL Glucose 367 H (75-100) mg/dL POC Glucose 345 H (70-105) Hemoglobin A1c (4-6) % Calcium (8.4-10.2) mg/dL Albumin 2.6 L (3.9-5) g/dL 09/03/18 09/04/18 09/04/18 Range/Units 21:28 05:44 05:44 RBC (3.65-5.03) M/mm3 Hgb (11.8-15.2) gm/dl Hct (35.5-45.6) % MCHC (32-34) % [place] % (Auto) (0.0-7.3) % BUN 24 H (9-20) mg/dL Glucose 308 H (75-100) mg/dL POC Glucose 315 H (70-105) Hemoglobin A1c 14.8 H (4-6) % Calcium 8.1 L (8.4-10.2) mg/dL Albumin (3.9-5) g/dL 09/04/18 Range/Units 08:52 RBC (3.65-5.03) M/mm3 Hgb (11.8-15.2) gm/dl Hct (35.5-45.6) % MCHC (32-34) % [place] % (Auto) (0.0-7.3) % BUN (9-20) mg/dL Glucose (75-100) mg/dL POC Glucose 298 H (70-105) Hemoglobin A1c (4-6) % Calcium (8.4-10.2) mg/dL Albumin (3.9-5) g/dL Assessment and Plan Cultures: 09/03/2018 Blood: In progress A/P: 67-year old male with a past medical history of diabetes, hypertension, dementia and elevated cholesterol presents to the ED on 09/03/18 with complaints of left foot ulcer. History was obtained by patient and daughter at bedside. The patient has had an ulcer on his left foot for about 3 month and was being monitored daily by the home health nurse. After looking at the foot, the family felt like the ulcer had gotten worse with associated non-foul smelling drainage. Admitted with: 1. Diabetic Left Foot ulcer: Left MTP Joint. Left foot xray shows allie erosive change involving the great toe metatarsal and proximal phalanx with associated soft tissue calcification and ulcer formation.Infectious and noninfectious etiologies, to include osteoarthritis, Duplex scan shows No evidence for DVT seen bilaterally. No abnormal fluid collection or Fonseca's cyst seen. Shotty left inguinal lymph nodes in keeping with reactive lymphadenopathy. ESR >140. No fever. No leukocytosis. Blood cultures are in progress. Currently being treated with Vancomycin and Zosyn. Discontinue Zosyn. Start Cefepime and Flagyl. Will obtain MRI, surgical consult and wound care. 2. Uncontrolled Type 2 diabetes: On admission Hemoglobin A1C 14.8. Recommend tight glycemic control, 3. Dementia: 4. Severe malnutrition: 5. Anemia: monitor hemoglobin Plan: -Discontinue Zosyn -Start Cefepime 2 gms IV every 12 hours -Start Flagyl 500mg IV every 8 hours -Continue Vancomycin PK dosing, D2 -follow-up blood cultures -order wound culture -follow-up surgical consult -Order wound care -Order CRP and CBC for tomorrow -Follow-up MRI to evaluate osteomylitis [facility] M: [phone] O:[phone]
[2018-09-04] MEDS: FLAGYL 500 MG/100 ML 500 MG/100 ML BAG IV SCH ×2 (16:41→23:41)
[2018-09-04] MEDS: MAXIPIME/NS 2 GM/100 ML 2 GM/100 ML BAG IV SCH (17:18)
[2018-09-04] MEDS: VANCOMYCIN/NS 1 GM/250 ML 1 GM/250 ML BAG IV SCH (20:04)
[2018-09-04] MEDS: LANTUS SUB-Q SCH (21:37)
[2018-09-05 01:02] LABS: Basophils % (Auto) 0.8 % (0.0-1.8); Eosinophils # (Auto) 0.2 K/mm3 (0.0-0.4); Eosinophils % (Auto) 3.3 % (0.0-4.3); Hematocrit 28.6 % (35.5-45.6); Hemoglobin 9.9 gm/dl (11.8-15.2); Lymphocytes # (Auto) 1.7 K/mm3 (1.2-5.4); Mean Corpuscular HGB Conc 35 % (32-34); Mean Corpuscular Volume 88 fl (84-94); Monocytes # (Auto) 0.4 K/mm3 (0.0-0.8); Monocytes % (Auto) 7.1 % (0.0-7.3); Platelet Count 272 K/mm3 (140-440); Red Blood Count 3.24 M/mm3 (3.65-5.03); Red Cell Distribution Width 13.6 % (13.2-15.2)
[2018-09-05] MEDS: MAXIPIME/NS 2 GM/100 ML 2 GM/100 ML BAG IV SCH ×2 (03:10→17:10)
[2018-09-05] MEDS: NACL 0.9% 1000 ML 1,000 ML IV SCH ×2 (03:10→17:09)
[2018-09-05] MEDS: APRESOLINE IV PRN ×2 (03:15→17:59)
[2018-09-05 03:56] LABS: Hematocrit 29.3 % (35.5-45.6); Hemoglobin 9.9 gm/dl (11.8-15.2); Mean Corpuscular HGB Conc 34 % (32-34); Mean Corpuscular Volume 88 fl (84-94); Platelet Count 294 K/mm3 (140-440); Red Blood Count 3.33 M/mm3 (3.65-5.03); Red Cell Distribution Width 13.5 % (13.2-15.2)
[2018-09-05 04:10] LABS: BUN/Creatinine Ratio 20; Blood Urea Nitrogen 20 mg/dL (9-20); Calcium 8.6 mg/dL (8.4-10.2); Hemolysis Index 0
--- NOTE | 2018-09-05 07:22 | Progress Note ---
Assessment and Plan Assessment and plan: Patient is a 67 yo -[place] man with history of diabetes mellitus type 2, dementia, dyslipidemia, hypertension and chronic left foot ulcer who presented to [facility] ED due to worsening left foot ulcer. Regina. granddaugther had to be removed from ED by security. * 3v Left XRAy IMPRESSION: 1. Bony erosive change involving the great toe metatarsal and proximal phalanx with associated abnormal adjacent soft tissues with soft tissue calcification and ulcer formation. Infectious and noninfectious etiologies, to include osteoarthritis, need to be considered. If further imaging is required, MRI may be helpful. Diabetic left foot ulcer -Evaluate for Osteomyelitis -On IV antibiotics with vancomycin and Zosyn -Further evaluation with MRI left foot to rule out osteomyelitis -Podiatry consulted in the ED, not available here, consulted ID Dr. Aguiar not available until , consulted Ortho, didn't see, will cancel and consult General Surgeon, Dr. Stringer DM2 with hyperglycemia -On SSI and Lantus -We'll check hemoglobin A1c level==>14.8, need better control, stop the oral meds Severe malnutrition, poa -Consult Lock Maintenance Supervisor Acute metabolic encephalopathy, poa -Supportive care Hypertension -Stable Dementia -Stable Anemia of chronic disease -H/H stable DVT prophylaxis with Lovenox Disposition: Patient will be admitted on inpatient status 09/04/18 12:16pm I called daughter Flora at [phone], Lj, her answered and gave me ==>[phone]. I spoke Flora and gave update and also answered all questions. MRI foot pending Consulted Gen. Surgeon, Dr. Stringer Ordered Arterial doppler, follow results Disposition: continue inpatient care, dispo based up the above History Interval history: Patient was seen and examined. Follow-up on current diagnosis of DM foot ulcer. No overnight events reported to me. Patient denies any chest pain, shortness breath, nausea/vomiting or severe headaches. Imaging, nursing note, chart, labs and old chart reviewed. Discussed with patient. Hospitalist Physical - Physical exam Narrative exam: Gen: thin frail, chronically ill appearing, NAD, Awake, Alert, Orientated x 2, missed year HEENT: NCAT, EOMI, PERRL, OP Clear Neck: supple, no adenopathy, no thyromegaly, no JVD CVS/Heart: RRR, normal S1S2, pulses present bilaterally Chest/Lungs: CTA B, Symmetrical chest expansion, good air entry bilaterally GI/Abdomen: soft, NTND, good bowel sounds, no guarding or rebound /Bladder: no suprapubic tenderness, no CVA or paraspinal tenderness Extermity/Skin: left lateral wet foot ulcer MSK: FROM x 4 Neuro: CN 2-12 grossly intact, no new focal deficits Psych: calm - Constitutional Vitals: Temp Pulse Resp BP Pulse Ox 98.9 F 75 16 146/86 98 09/05/18 04:43 09/05/18 04:43 09/05/18 04:43 09/05/18 04:43 09/05/18 04:43 General appearance: Present: no acute distress Results - Labs CBC & Chem 7: 09/05/18 03:31 09/05/18 03:31 Labs: Laboratory Last Values WBC 5.9 K/mm3 (4.5-11.0) 09/05/18 03:31 RBC 3.33 M/mm3 (3.65-5.03) L 09/05/18 03:31 Hgb 9.9 gm/dl (11.8-15.2) L 09/05/18 03:31 Hct 29.3 % (35.5-45.6) L 09/05/18 03:31 MCV 88 fl (84-94) 09/05/18 03:31 MCH 30 pg (28-32) 09/05/18 03:31 MCHC 34 % (32-34) 09/05/18 03:31 RDW 13.5 % (13.2-15.2) 09/05/18 03:31 Plt Count 294 K/mm3 (140-440) 09/05/18 03:31 Lymph % (Auto) 33.0 % (13.4-35.0) 09/05/18 00:24 [place] % (Auto) 7.1 % (0.0-7.3) 09/05/18 00:24 Eos % (Auto) 3.3 % (0.0-4.3) 09/05/18 00:24 Baso % (Auto) 0.8 % (0.0-1.8) 09/05/18 00:24 Lymph # 1.7 K/mm3 (1.2-5.4) 09/05/18 00:24 [place] # 0.4 K/mm3 (0.0-0.8) 09/05/18 00:24 Eos # 0.2 K/mm3 (0.0-0.4) 09/05/18 00:24 Baso # 0.0 K/mm3 (0.0-0.1) 09/05/18 00:24 Seg Neutrophils % 55.8 % (40.0-70.0) 09/05/18 00:24 Seg Neutrophils # 2.9 K/mm3 (1.8-7.7) 09/05/18 00:24 ESR > 140.0 mm/Hr (0-20) 09/03/18 18:45 VBG pH 7.394 (7.320-7.420) 09/03/18 18:45 Sodium 145 mmol/L (137-145) 09/05/18 03:31 Potassium 4.0 mmol/L (3.6-5.0) 09/05/18 03:31 Chloride 107.9 mmol/L (98-107) H 09/05/18 03:31 Carbon Dioxide 28 mmol/L (22-30) 09/05/18 03:31 13 mmol/L 09/05/18 03:31 BUN 20 mg/dL (9-20) 09/05/18 03:31 1.0 mg/dL (0.8-1.5) 09/05/18 03:31 Estimated GFR > 60 ml/min 09/05/18 03:31 20 % 09/05/18 03:31 Glucose 138 mg/dL (75-100) H 09/05/18 03:31 POC Glucose 141 (70-105) H 09/05/18 03:13 14.8 % (4-6) H 09/04/18 05:44 Lactic Acid 1.50 mmol/L (0.7-2.0) 09/03/18 21:53 Calcium 8.6 mg/dL (8.4-10.2) 09/05/18 03:31 0.30 mg/dL (0.1-1.2) 09/03/18 18:45 AST 14 units/L (5-40) 09/03/18 18:45 ALT 17 units/L (7-56) 09/03/18 18:45 88 units/L (35-129) 09/03/18 18:45 5.10 mg/dL (0.00-1.30) H 09/05/18 00:24 7.0 g/dL (6.3-8.2) 09/03/18 18:45 2.6 g/dL (3.9-5) L 09/03/18 18:45 0.6 % 09/03/18 18:45 Yellow (Yellow) 09/04/18 03:50 Clear (Clear) 09/04/18 03:50 5.0 (5.0-7.0) 09/04/18 03:50 Ur Specific [place] 1.022 (1.003-1.030) 09/04/18 03:50 <15 mg/dl mg/dL (Negative) 09/04/18 03:50 >=500 mg/dL (Negative) 09/04/18 03:50 Neg mg/dL (Negative) 09/04/18 03:50 Sm (Negative) 09/04/18 03:50 Neg (Negative) 09/04/18 03:50 Neg (Negative) 09/04/18 03:50 < 2.0 mg/dL (<2.0) 09/04/18 03:50 Ur Leukocyte Esterase Neg (Negative) 09/04/18 03:50 1.0 /HPF (0.0-6.0) 09/04/18 03:50 4.0 /HPF (0.0-6.0) 09/04/18 03:50 U Epithel Cells (Auto) < 1.0 /HPF (0-13.0) 09/04/18 03:50 Few /HPF 09/04/18 03:50 Active Medications - Current Medications Current Medications: Generic Name Dose Route Start Last Admin Trade Name Freq PRN Reason Stop Dose Admin Acetaminophen 650 mg 09/03/18 23:14 Tylenol PO Q4H PRN Pain MILD(1-3)/Fever >100.5/ARAGON Dextrose 50 ml 09/03/18 23:32 D50w (25gm) Syringe IV PRN PRN Hypoglycemia Heparin Sodium (Porcine) 5,000 unit 09/05/18 08:28 Heparin SUB-Q Q12HR [facility] Hydralazine HCl 10 mg 09/04/18 00:08 09/05/18 03:15 Apresoline IV 10 mg Q4HR PRN Administration Blood Pressure Sodium Chloride 1,000 mls @ 100 mls/hr 09/03/18 23:45 09/05/18 03:10 Nacl 0.9% 1000 Ml IV 100 mls/hr DIRECT [facility] Administration Vancomycin HCl 1 gm in 250 mls @ 166.667 mls/hr 09/04/18 20:00 09/04/18 20:04 Vancomycin/Ns 1 Gm/250 Ml IV 166.667 mls/hr Q24H [facility] Administration Cefepime HCl 2 gm in 100 mls @ 200 mls/hr 09/04/18 16:00 09/05/18 03:10 Maxipime/Ns 2 Gm/100 Ml IV 200 mls/hr Q12H [facility] Administration Protocol Metronidazole 500 mg in 100 mls @ 100 mls/hr 09/04/18 16:00 09/04/18 23:41 Flagyl 500 Mg/100 Ml IV 100 mls/hr Q8H [facility] Administration Protocol Insulin Glargine 20 units 09/04/18 22:00 09/04/18 21:37 Lantus SUB-Q 20 units QHS [facility] Administration Insulin Human Lispro 0 unit 09/04/18 07:30 09/04/18 21:36 Humalog SUB-Q 6 unit ACHS [facility] Administration Protocol Ondansetron HCl 4 mg 09/03/18 23:14 Zofran IV Q8H PRN Nausea And Vomiting Oxycodone/Acetaminophen 1 tab 09/03/18 23:14 09/05/18 03:14 Percocet 5/325 PO 1 tab Q6H PRN Administration Pain, Moderate (4-6) Sodium Chloride 10 ml 09/04/18 10:00 09/04/18 21:37 Sodium Chloride Flush Syringe 10 Ml IV 10 ml BID [facility] Administration Sodium Chloride 10 ml 09/03/18 23:14 Sodium Chloride Flush Syringe 10 Ml IV PRN PRN LINE FLUSH
--- NOTE | 2018-09-05 09:16 | Progress Note ---
Assessment and Plan Cultures: 09/03/2018 Blood: no growth to date 09/04/2018 Wound: Gram Negative Rods and Jenifer species A/P: 67-year old male with a past medical history of diabetes, hypertension, dementia and elevated cholesterol presents to the ED on 09/03/18 with complaints of left foot ulcer. History was obtained by patient and daughter at bedside. The patient has had an ulcer on his left foot for about 3 month and was being monitored daily by the home health nurse. After looking at the foot, the family felt like the ulcer had gotten worse with associated non-foul smelling drainage. Admitted with: 1. Diabetic Left Foot ulcer: Left MTP Joint. Left foot xray shows allie erosive change involving the great toe metatarsal and proximal phalanx with associated soft tissue calcification and ulcer formation.Infectious and noninfectious etiologies, to include osteoarthritis, Duplex scan suggests focal stenosis in left popliteal artery. No evidence of significant stenosis on the right. ESR >140. CRP 5.1. No fever. No leukocytosis. Blood cultures are in progress. Wound culture grew GNR and Canidida species. Currently being treated with V ancomycin, Cefepime and Flagyl. 2. Uncontrolled Type 2 diabetes: On admission Hemoglobin A1C 14.8. Recommend tight glycemic control, 3. Dementia: 4. Severe malnutrition: 5. Anemia: monitor hemoglobin Plan: -Continue Cefepime 2 gms IV every 12 hours, D2 -Continue Flagyl 500mg IV every 8 hours,D2 -Continue Vancomycin PK dosing, D3 -follow-up blood cultures and wound cultures -follow-up wound care -Follow-up MRI to evaluate osteomylitis -Vascular consult for stenosis in left popiteal artery -Surgery on board [facility] M: [phone] O:[phone] Subjective Date of service: 09/05/18 Interval history: Patient seen and examined. Reports no generalized weakness or left foot pain. No fevers. Objective - Exam Narrative Exam: Constitutional: Alert, cooperative. No acute distress. Head, Ears, Nose: Normocephalic, atraumatic. External ears, nose normal Eyes: Conjunctivae/corneas clear. No icterus. No ptosis. Neck: Supple, no meningeal signs Oral: no thrush Cardiovascular: S1, S2 normal. Respiratory: Good air entry, clear to auscultation bilaterally GI: Soft, non-tender; bowel sounds normal. No peritoneal signs Musculoskeletal: diabetic ulcer left MTP joint, minimal brownish green drainage with mild odor. Left foot edematous, decreased palpaple pulses. Skin: same as above Hem/Lymphatic: No palpable cervical or supraclavicular nodes. No lymphangitis Psych: Mood ok. Affect normal Neurological: Awake, alert, follows commands. oriented. - Constitutional Vitals: Vital Signs Temp Pulse Resp BP Pulse Ox 98.9 F 75 16 146/86 98 09/05/18 04:43 09/05/18 04:43 09/05/18 04:43 09/05/18 04:43 09/05/18 04:43 Temperature -Last 24 Hours Temperature 98.9 F Temperature 98.6 F Temperature 98.9 F Temperature 98.0 F Temperature 98.3 F - Labs CBC & Chem 7: 09/05/18 03:31 09/05/18 03:31 Labs: Abnormal lab results 09/04/18 09/04/18 09/04/18 Range/Units 11:31 16:46 21:08 RBC (3.65-5.03) M/mm3 Hgb (11.8-15.2) gm/dl Hct (35.5-45.6) % MCHC (32-34) % Chloride (98-107) mmol/L Glucose (75-100) mg/dL POC Glucose 335 H 226 H 300 H (70-105) C-Reactive Protein (0.00-1.30) mg/dL 09/05/18 09/05/18 09/05/18 Range/Units 00:24 00:24 03:13 RBC 3.24 L (3.65-5.03) M/mm3 Hgb 9.9 L (11.8-15.2) gm/dl Hct 28.6 L (35.5-45.6) % MCHC 35 H (32-34) % Chloride (98-107) mmol/L Glucose (75-100) mg/dL POC Glucose 141 H (70-105) C-Reactive Protein 5.10 H (0.00-1.30) mg/dL 09/05/18 09/05/18 09/05/18 Range/Units 03:31 03:31 07:48 RBC 3.33 L (3.65-5.03) M/mm3 Hgb 9.9 L (11.8-15.2) gm/dl Hct 29.3 L (35.5-45.6) % MCHC (32-34) % Chloride 107.9 H (98-107) mmol/L Glucose 138 H (75-100) mg/dL POC Glucose 188 H (70-105) C-Reactive Protein (0.00-1.30) mg/dL
[2018-09-05] MEDS: HumaLOG SUB-Q SCH ×4 (09:56→22:49)
[2018-09-05] MEDS: FLAGYL 500 MG/100 ML 500 MG/100 ML BAG IV SCH ×2 (09:59→18:05)
[2018-09-05] MEDS: HEPARIN SUB-Q SCH ×3 (10:00→22:48)
[2018-09-05] MEDS: SODIUM CHLORIDE FLUSH SYRINGE 10 ML IV SCH ×2 (10:01→22:50)
--- NOTE | 2018-09-05 10:35 | Vascular Lab Report ---
PROCEDURE: VL ARTERIAL DUPLEX LE BILAT TECHNIQUE: Arterial duplex Doppler ultrasound of lower extremities. Grayscale, color flow and spectr al waveform imaging performed bilateral lower extremities. HISTORY: non healing foot ulcers COMPARISON: None FINDINGS: There is moderate atherosclerotic plaque bilaterally. Right lower extremity arteries are patent and demonstrates biphasic flow. There is no abnormal elevat ion in flow velocity to indicate focal stenosis. On the left arteries are patent. There is triphasic flow from left common femoral artery to distal russell perficial femoral artery. There is monophasic flow in the left popliteal and calf arteries. There is also monophasic flow in the dorsalis pedis artery. There is elevated velocity in the left popliteal a rtery measured at 246 cm/s. Findings are suspicious for popliteal artery stenosis on the left. IMPRESSION: Moderate plaque bilaterally. Findings suggesting focal stenosis in left popliteal artery . No evidence of significant stenosis on the right. This document is electronically signed by Porsche Al MD., September 05 2018 10:32:47 AM ET
--- NOTE | 2018-09-05 11:11 | Consultation ---
History of Present Illness Consult date: 09/05/18 Reason for consult: wound care Requesting physician: VEL VILLALPANDO Chief complaint: chronic left foot wound - History of present illness History of present illness: 67yo M was admitted through the emergency room room due to concerns of worsening left foot wound. Patient has a history of diabetes as well. Patient reports that he came to the hospital due to his son's insistence. The son was concerned the wound was getting worse. The patient feels the wound has been stable. Has been there for a number of months. He has been caring for it at home with the aid of home health nurses. This was set up by his primary. He has not been to a wound care center. This wound was originally not taken care of in the hospital. Pt denies any pain at this time. He reports that he has feeling in the foot Past History Past Medical History: anemia, diabetes, hypertension, hyperlipidemia, other (dementia, diabetic left foot ulcer) Past Surgical History: No surgical history Social history: no significant social history (he denies current tobacco, alcohol or illicit drug use) Family history: other (significant for diabetes and hypertension in multiple family members) Medications and Allergies Allergies Allergy/AdvReac Type Severity Reaction Status Date / Time No Known Allergies Allergy Verified 11/13/17 20:38 Home Medications Medication Instructions Recorded Confirmed Last Taken Type Glipizide 03/09/17 Unknown History metFORMIN 03/09/17 Unknown History Levemir Flextouch 25 unit SUB-Q HS MDD 25 units 11/10/17 11/10/17 Unknown History cephALEXin [Keflex] 500 mg PO Q8HR #15 cap 11/10/17 Unknown Rx Acetaminophen [Tylenol Arthritis] 650 mg PO Q6HR PRN #30 tablet.er 11/14/17 Unknown Rx Ibuprofen [Motrin] 600 mg PO Q8H PRN #30 tablet 11/14/17 Unknown Rx Active Meds: Active Medications Acetaminophen (Tylenol) 650 mg PO Q4H PRN PRN Reason: Pain MILD(1-3)/Fever >100.5/ARAGON Dextrose (D50w (25gm) Syringe) 50 ml IV PRN PRN PRN Reason: Hypoglycemia Heparin Sodium (Porcine) (Heparin) 5,000 unit SUB-Q Q12HR [facility] Last Admin: 09/05/18 10:09 Dose: Not Given Documented by: Hydralazine HCl (Apresoline) 10 mg IV Q4HR PRN PRN Reason: Blood Pressure Last Admin: 09/05/18 03:15 Dose: 10 mg Documented by: Sodium Chloride (Nacl 0.9% 1000 Ml) 1,000 mls @ 100 mls/hr IV DIRECT [facility] Last Admin: 09/05/18 03:10 Dose: 100 mls/hr Documented by: Vancomycin HCl (Vancomycin/Ns 1 Gm/250 Ml) 1 gm in 250 mls @ 166.667 mls/hr IV Q24H [facility] Last Admin: 09/04/18 20:04 Dose: 166.667 mls/hr Documented by: Cefepime HCl (Maxipime/Ns 2 Gm/100 Ml) 2 gm in 100 mls @ 200 mls/hr IV Q12H [facility]; Protocol Last Admin: 09/05/18 03:10 Dose: 200 mls/hr Documented by: Metronidazole (Flagyl 500 Mg/100 Ml) 500 mg in 100 mls @ 100 mls/hr IV Q8H [facility]; Protocol Last Admin: 09/05/18 09:59 Dose: 100 mls/hr Documented by: Insulin Glargine (Lantus) 20 units SUB-Q QHS [facility] Last Admin: 09/04/18 21:37 Dose: 20 units Documented by: Insulin Human Lispro (Humalog) 0 unit SUB-Q ACHS [facility]; Protocol Last Admin: 09/05/18 09:56 Dose: 2 unit Documented by: Ondansetron HCl (Zofran) 4 mg IV Q8H PRN PRN Reason: Nausea And Vomiting Oxycodone/Acetaminophen (Percocet 5/325) 1 tab PO Q6H PRN PRN Reason: Pain, Moderate (4-6) Last Admin: 09/05/18 03:14 Dose: 1 tab Documented by: Sodium Chloride (Sodium Chloride Flush Syringe 10 Ml) 10 ml IV BID [facility] Last Admin: 09/05/18 10:01 Dose: 10 ml Documented by: Sodium Chloride (Sodium Chloride Flush Syringe 10 Ml) 10 ml IV PRN PRN PRN Reason: LINE FLUSH Review of Systems - Constitutional no fever, no chills, no chronic pain - Cardiovascular no chest pain, no shortness of breath - Gastrointestinal no abdominal pain, no nausea, no vomiting - Integumentary wounds, foot/leg ulcers - Neurological no numbness, no sensory deficit Exam Vital Signs Pulse Ox 98 09/03/18 18:24 - General physical appearance Positive: no distress, no pain, other (pleasant elderly gentleman) - Respiratory Positive: normal expansion, normal respiratory effort - Extremities Extremity abnormal: ulceration (on medial aspect of left foot near 1st MTP joint. down to subq level only. no purulent drainage. no erythema. no tenderness) - Neurologic Neurologic: alert and oriented to time, place and person - Psychiatric Psychiatric: appropriate mood/affect, intact judgment & insight Results - Labs 09/05/18 03:31 09/05/18 03:31 Abnormal lab results 09/04/18 09/04/18 09/04/18 Range/Units 11:31 16:46 21:08 RBC (3.65-5.03) M/mm3 Hgb (11.8-15.2) gm/dl Hct (35.5-45.6) % MCHC (32-34) % Chloride (98-107) mmol/L Glucose (75-100) mg/dL POC Glucose 335 H 226 H 300 H (70-105) C-Reactive Protein (0.00-1.30) mg/dL 09/05/18 09/05/18 09/05/18 Range/Units 00:24 00:24 03:13 RBC 3.24 L (3.65-5.03) M/mm3 Hgb 9.9 L (11.8-15.2) gm/dl Hct 28.6 L (35.5-45.6) % MCHC 35 H (32-34) % Chloride (98-107) mmol/L Glucose (75-100) mg/dL POC Glucose 141 H (70-105) C-Reactive Protein 5.10 H (0.00-1.30) mg/dL 09/05/18 09/05/18 09/05/18 Range/Units 03:31 03:31 07:48 RBC 3.33 L (3.65-5.03) M/mm3 Hgb 9.9 L (11.8-15.2) gm/dl Hct 29.3 L (35.5-45.6) % MCHC (32-34) % Chloride 107.9 H (98-107) mmol/L Glucose 138 H (75-100) mg/dL POC Glucose 188 H (70-105) C-Reactive Protein (0.00-1.30) mg/dL Diabetes panel 09/05/18 Range/Units 03:31 Sodium 145 (137-145) mmol/L Potassium 4.0 (3.6-5.0) mmol/L Chloride 107.9 H (98-107) mmol/L Carbon Dioxide 28 (22-30) mmol/L BUN 20 (9-20) mg/dL Creatinine 1.0 (0.8-1.5) mg/dL Glucose 138 H (75-100) mg/dL Calcium 8.6 (8.4-10.2) mg/dL Calcium panel 09/05/18 Range/Units 03:31 Calcium 8.6 (8.4-10.2) mg/dL Pituitary panel 09/05/18 Range/Units 03:31 Sodium 145 (137-145) mmol/L Potassium 4.0 (3.6-5.0) mmol/L Chloride 107.9 H (98-107) mmol/L Carbon Dioxide 28 (22-30) mmol/L BUN 20 (9-20) mg/dL Creatinine 1.0 (0.8-1.5) mg/dL Glucose 138 H (75-100) mg/dL Calcium 8.6 (8.4-10.2) mg/dL Adrenal panel 09/05/18 Range/Units 03:31 Sodium 145 (137-145) mmol/L Potassium 4.0 (3.6-5.0) mmol/L Chloride 107.9 H (98-107) mmol/L Carbon Dioxide 28 (22-30) mmol/L BUN 20 (9-20) mg/dL Creatinine 1.0 (0.8-1.5) mg/dL Glucose 138 H (75-100) mg/dL Calcium 8.6 (8.4-10.2) mg/dL - Imaging Additional studies: arterial duplex report reviewed foot x-ray report reviewed Assessment and Plan - Patient Problems (1) Diabetic foot ulcer Current Visit: Yes Status: Acute Qualifiers: Diabetic foot ulcer location: unspecified part of foot Diabetes mellitus type: type 2 Non-pressure ulcer stage: with fat layer exposed Plan to address problem: Pt stable. Patient has a chronic ulcer on the left foot. There is no obvious deep infection of the foot. He has no tenderness at this time. He confirmed that he came based on his son's recommendation. He has not noticed any changes recently. We will need to get additional studies prior to making any surgical plans. Rec: 1) vascular consult for stenosis and left popliteal artery. 2) MRI of left foot to check for osteomyelitis 3) wound care consult for initial evaluation and eventually to set up in the wound care clinic for outpatient care. We'll follow along. Please call with questions. Time=30min
--- NOTE | 2018-09-05 15:52 | Consultation ---
History of Present Illness - Reason for Consult Consult date: 09/05/18 Left foot wound - History of Present Illness 67yo M was admitted through the emergency room room due to concerns of worsening left foot wound. Patient has a history of diabetes as well. Patient reports that he came to the hospital due to his son's insistence. The son was concerned the wound was getting worse. The patient feels the wound has been stable. Has been there for a number of months. He has been caring for it at home with the aid of home health nurses. This was set up by his primary. He has not been to a wound care center. This wound was originally not taken care of in the hospital. Pt denies any pain at this time. He reports that he has feeling in the foot Right DP palpable, PT nonpalpable Left DP nonpalpable, PT palpable Left 1st MTP medial wound with ulceration and exposed fat. Past History Past Medical History: anemia, diabetes, hypertension, hyperlipidemia, other (dementia, diabetic left foot ulcer) Past Surgical History: No surgical history Social history: no significant social history (he denies current tobacco, alcohol or illicit drug use) Family history: other (significant for diabetes and hypertension in multiple family members) Medications and Allergies Allergies Allergy/AdvReac Type Severity Reaction Status Date / Time No Known Allergies Allergy Verified 11/13/17 20:38 Home Medications Medication Instructions Recorded Confirmed Last Taken Type Glipizide 03/09/17 Unknown History metFORMIN 03/09/17 Unknown History Levemir Flextouch 25 unit SUB-Q HS MDD 25 units 11/10/17 11/10/17 Unknown History cephALEXin [Keflex] 500 mg PO Q8HR #15 cap 11/10/17 Unknown Rx Acetaminophen [Tylenol Arthritis] 650 mg PO Q6HR PRN #30 tablet.er 11/14/17 Unknown Rx Ibuprofen [Motrin] 600 mg PO Q8H PRN #30 tablet 11/14/17 Unknown Rx Active Meds: Active Medications Acetaminophen (Tylenol) 650 mg PO Q4H PRN PRN Reason: Pain MILD(1-3)/Fever >100.5/ARAGON Dextrose (D50w (25gm) Syringe) 50 ml IV PRN PRN PRN Reason: Hypoglycemia Heparin Sodium (Porcine) (Heparin) 5,000 unit SUB-Q Q12HR [facility] Last Admin: 09/05/18 10:09 Dose: Not Given Documented by: Hydralazine HCl (Apresoline) 10 mg IV Q4HR PRN PRN Reason: Blood Pressure Last Admin: 09/05/18 03:15 Dose: 10 mg Documented by: Sodium Chloride (Nacl 0.9% 1000 Ml) 1,000 mls @ 100 mls/hr IV DIRECT [facility] Last Admin: 09/05/18 03:10 Dose: 100 mls/hr Documented by: Vancomycin HCl (Vancomycin/Ns 1 Gm/250 Ml) 1 gm in 250 mls @ 166.667 mls/hr IV Q24H [facility] Last Admin: 09/04/18 20:04 Dose: 166.667 mls/hr Documented by: Cefepime HCl (Maxipime/Ns 2 Gm/100 Ml) 2 gm in 100 mls @ 200 mls/hr IV Q12H [facility]; Protocol Last Admin: 09/05/18 03:10 Dose: 200 mls/hr Documented by: Metronidazole (Flagyl 500 Mg/100 Ml) 500 mg in 100 mls @ 100 mls/hr IV Q8H [facility]; Protocol Last Admin: 09/05/18 09:59 Dose: 100 mls/hr Documented by: Insulin Glargine (Lantus) 20 units SUB-Q QHS [facility] Last Admin: 09/04/18 21:37 Dose: 20 units Documented by: Insulin Human Lispro (Humalog) 0 unit SUB-Q ACHS [facility]; Protocol Last Admin: 09/05/18 13:02 Dose: 4 unit Documented by: Ondansetron HCl (Zofran) 4 mg IV Q8H PRN PRN Reason: Nausea And Vomiting Oxycodone/Acetaminophen (Percocet 5/325) 1 tab PO Q6H PRN PRN Reason: Pain, Moderate (4-6) Last Admin: 09/05/18 03:14 Dose: 1 tab Documented by: Sodium Chloride (Sodium Chloride Flush Syringe 10 Ml) 10 ml IV BID [facility] Last Admin: 09/05/18 10:01 Dose: 10 ml Documented by: Sodium Chloride (Sodium Chloride Flush Syringe 10 Ml) 10 ml IV PRN PRN PRN Reason: LINE FLUSH Review of Systems ROS unobtainable: due to mental status Exam - Constitutional Vitals: Temp Pulse Resp BP Pulse Ox 98.3 F 79 20 151/85 98 09/05/18 11:35 09/05/18 11:35 09/05/18 11:35 09/05/18 11:35 09/05/18 11:35 General appearance: Present: no acute distress - EENT Eyes: Present: EOM intact ENT: hearing intact - Respiratory Respiratory effort: normal - Extremities Extremities: normal temperature, normal color, abnormal (see HPI) Extremity abnormal: pulses diminished (see HPI) - Abdominal General gastrointestinal: Present: soft - Psychiatric Psychiatric: no intact judgment & insight, no memory intact, cooperative - Neurologic Neurologic: other (neuropathy of the feet) Results - Labs CBC & Chem 7: 09/05/18 03:31 09/05/18 03:31 Labs: Abnormal lab results 09/04/18 09/04/18 09/05/18 Range/Units 16:46 21:08 00:24 RBC 3.24 L (3.65-5.03) M/mm3 Hgb 9.9 L (11.8-15.2) gm/dl Hct 28.6 L (35.5-45.6) % MCHC 35 H (32-34) % Chloride (98-107) mmol/L Glucose (75-100) mg/dL POC Glucose 226 H 300 H (70-105) C-Reactive Protein (0.00-1.30) mg/dL 09/05/18 09/05/18 09/05/18 Range/Units 00:24 03:13 03:31 RBC 3.33 L (3.65-5.03) M/mm3 Hgb 9.9 L (11.8-15.2) gm/dl Hct 29.3 L (35.5-45.6) % MCHC (32-34) % Chloride (98-107) mmol/L Glucose (75-100) mg/dL POC Glucose 141 H (70-105) C-Reactive Protein 5.10 H (0.00-1.30) mg/dL 09/05/18 09/05/18 09/05/18 Range/Units 03:31 07:48 11:17 RBC (3.65-5.03) M/mm3 Hgb (11.8-15.2) gm/dl Hct (35.5-45.6) % MCHC (32-34) % Chloride 107.9 H (98-107) mmol/L Glucose 138 H (75-100) mg/dL POC Glucose 188 H 258 H (70-105) C-Reactive Protein (0.00-1.30) mg/dL Assessment and Plan 67-year-old male with a left first digit nonhealing ulceration. 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 The left dorsalis pedis is nonpalpable but the left posterior tibial artery is palpable. Patient is pleasantly demented. I reviewed the arterial ultrasound and I suspect the patient has tibial disease but I am less inclined to believe there is a high-grade popliteal stenosis as this would preclude the strong pulse associated with the posterior tibial artery. I'm going to order physiologic JESUS, TBI, and PPG studies. These should help determine if revascularization is necessary given the palpable left posterior tibial pulse. If revascularization is not required, this is probably better for the patient as he is significantly demented. Agree with studies performed by Dr. Stringer.
--- NOTE | 2018-09-05 19:52 | Vascular Lab Report ---
PROCEDURE: VL JESUS EVALUATION TECHNIQUE: HISTORY: lower extremity ulcers, check TBI and PPG 1st digi COMPARISONS: FINDINGS: Ankle-brachial indices were performed. Right brachial pressure was 189 mmHg. Posterior tibial pressure was 208 mmHg. Dorsalis pedis and grea t toe were noncompressible. Waveforms in the calf were biphasic and in the toe monophasic Left brachial pressure was 192 mmHg. The posterior tibial dorsalis pedis and great toe were noncompre ssible.Waveforms in the calf were biphasic and in the toe monophasic Impression: Right ankle-brachial index was 1.10 which is normal. Left ankle-brachial index could not be calculated due to vessel noncompressibility Toe brachial indices cannot calculated due to vessel noncompressibility This document is electronically signed by Marquez Swan MD., September 05 2018 07:49:56 PM ET
[2018-09-05] MEDS: VANCOMYCIN/NS 1 GM/250 ML 1 GM/250 ML BAG IV SCH (22:48)
[2018-09-05] MEDS: LANTUS SUB-Q SCH (22:49)
[2018-09-06] MEDS: FLAGYL 500 MG/100 ML 500 MG/100 ML BAG IV SCH ×3 (01:04→16:11)
[2018-09-06] MEDS: NACL 0.9% 1000 ML 1,000 ML IV SCH (07:03)
[2018-09-06] MEDS: MAXIPIME/NS 2 GM/100 ML 2 GM/100 ML BAG IV SCH ×2 (07:24→17:49)
[2018-09-06 08:11] LABS: BUN/Creatinine Ratio 17; Blood Urea Nitrogen 17 mg/dL (9-20); Calcium 8.1 mg/dL (8.4-10.2); Hemolysis Index 7
[2018-09-06 08:14] LABS: Hematocrit 30.5 % (35.5-45.6); Hemoglobin 10.4 gm/dl (11.8-15.2); Mean Corpuscular HGB Conc 34 % (32-34); Mean Corpuscular Volume 89 fl (84-94); Platelet Count 313 K/mm3 (140-440); Red Blood Count 3.45 M/mm3 (3.65-5.03); Red Cell Distribution Width 13.5 % (13.2-15.2)
[2018-09-06] MEDS ORDERED: K-DUR PO NR (08:33)
[2018-09-06] MEDS ORDERED: D50W (25GM) Syringe IV NR (08:34)
--- NOTE | 2018-09-06 08:42 | Progress Note ---
Assessment and Plan Assessment and plan: Patient is a 67 yo -Cyp[place] man with history of diabetes mellitus type 2, dementia, dyslipidemia, hypertension and chronic left foot ulcer who presented to [facility] ED due to worsening left foot ulcer. grand REGINALDdaugther had to be removed from ED by security. I did speak with his daughter Flora 09/04/18 @ 12:16pm [phone]. Awaiting MRI to call her back. * 3v Left XRAy IMPRESSION: 1. Bony erosive change involving the great toe metatarsal and proximal phalanx with associated abnormal adjacent soft tissues with soft tissue calcification and ulcer formation. Infectious and noninfectious etiologies, to include osteoarthritis, need to be considered. If further imaging is required, MRI may be helpful. Diabetic left foot ulcer: continue abx, ID is following, input noted, Dr. Stringer, MRI pending DM2 with hyperglycemia, -On SSI and Lantus, A1c level is 14.8, need better control, stop the oral meds Severe malnutrition, poa-Consult [place] [employer] Acute metabolic encephalopathy, poa-Supportive care Hypokalemia: replete and monitor closely Hypertension-Stable Dementia -Stable Anemia of chronic disease-H/H stable DVT prophylaxis with Lovenox Disposition: Patient will be admitted on inpatient status MRI foot still pending Consulted Gen. Surgeon, Dr. Stringer Ordered Arterial doppler==>reviewed, consulted Vascular, d/w Dr. Nazario. more testing ordered Hypoglycemia, BG 61: reduce lantus and give half amp of dextrose Disposition: continue inpatient care, dispo based up the above History Interval history: Patient was seen and examined. Follow-up on current diagnosis of DM foot ulcer. No overnight events reported to me. Patient denies any chest pain, shortness breath, nausea/vomiting or severe headaches. Imaging, nursing note, chart, labs and old chart reviewed. Discussed with patient. Hospitalist Physical - Physical exam Narrative exam: Gen: thin frail, chronically ill appearing, NAD, Awake, Alert, Orientated x 2, missed year HEENT: NCAT, EOMI, PERRL, OP Clear Neck: supple, no adenopathy, no thyromegaly, no JVD CVS/Heart: RRR, normal S1S2, pulses present bilaterally Chest/Lungs: CTA B, Symmetrical chest expansion, good air entry bilaterally GI/Abdomen: soft, NTND, good bowel sounds, no guarding or rebound /Bladder: no suprapubic tenderness, no CVA or paraspinal tenderness Extermity/Skin: left lateral wet foot ulcer MSK: FROM x 4 Neuro: CN 2-12 grossly intact, no new focal deficits Psych: calm - Constitutional Vitals: Temp Pulse Resp BP Pulse Ox 98.0 F 74 18 157/63 97 09/06/18 06:07 09/06/18 07:05 09/06/18 07:05 09/06/18 07:05 09/06/18 07:05 General appearance: Present: no acute distress Results - Labs CBC & Chem 7: 09/06/18 06:53 09/06/18 06:53 Labs: Laboratory Last Values WBC 5.3 K/mm3 (4.5-11.0) 09/06/18 06:53 RBC 3.45 M/mm3 (3.65-5.03) L 09/06/18 06:53 Hgb 10.4 gm/dl (11.8-15.2) L 09/06/18 06:53 Hct 30.5 % (35.5-45.6) L 09/06/18 06:53 MCV 89 fl (84-94) 09/06/18 06:53 MCH 30 pg (28-32) 09/06/18 06:53 MCHC 34 % (32-34) 09/06/18 06:53 RDW 13.5 % (13.2-15.2) 09/06/18 06:53 Plt Count 313 K/mm3 (140-440) 09/06/18 06:53 Lymph % (Auto) 33.0 % (13.4-35.0) 09/05/18 00:24 [place] % (Auto) 7.1 % (0.0-7.3) 09/05/18 00:24 Eos % (Auto) 3.3 % (0.0-4.3) 09/05/18 00:24 Baso % (Auto) 0.8 % (0.0-1.8) 09/05/18 00:24 Lymph # 1.7 K/mm3 (1.2-5.4) 09/05/18 00:24 [place] # 0.4 K/mm3 (0.0-0.8) 09/05/18 00:24 Eos # 0.2 K/mm3 (0.0-0.4) 09/05/18 00:24 Baso # 0.0 K/mm3 (0.0-0.1) 09/05/18 00:24 Seg Neutrophils % 55.8 % (40.0-70.0) 09/05/18 00:24 Seg Neutrophils # 2.9 K/mm3 (1.8-7.7) 09/05/18 00:24 ESR > 140.0 mm/Hr (0-20) 09/03/18 18:45 VBG pH 7.394 (7.320-7.420) 09/03/18 18:45 Sodium 142 mmol/L (137-145) 09/06/18 06:53 Potassium 3.4 mmol/L (3.6-5.0) L 09/06/18 06:53 Chloride 104.7 mmol/L (98-107) 09/06/18 06:53 Carbon Dioxide 26 mmol/L (22-30) 09/06/18 06:53 15 mmol/L 09/06/18 06:53 BUN 17 mg/dL (9-20) 09/06/18 06:53 1.0 mg/dL (0.8-1.5) 09/06/18 06:53 Estimated GFR > 60 ml/min 09/06/18 06:53 17 % 09/06/18 06:53 Glucose 53 mg/dL (75-100) L 09/06/18 06:53 POC Glucose 61 (70-105) L 09/06/18 08:01 14.8 % (4-6) H 09/04/18 05:44 Lactic Acid 1.50 mmol/L (0.7-2.0) 09/03/18 21:53 Calcium 8.1 mg/dL (8.4-10.2) L 09/06/18 06:53 0.30 mg/dL (0.1-1.2) 09/03/18 18:45 AST 14 units/L (5-40) 09/03/18 18:45 ALT 17 units/L (7-56) 09/03/18 18:45 88 units/L (35-129) 09/03/18 18:45 5.10 mg/dL (0.00-1.30) H 09/05/18 00:24 7.0 g/dL (6.3-8.2) 09/03/18 18:45 2.6 g/dL (3.9-5) L 09/03/18 18:45 0.6 % 09/03/18 18:45 Yellow (Yellow) 09/04/18 03:50 Clear (Clear) 09/04/18 03:50 5.0 (5.0-7.0) 09/04/18 03:50 Ur Specific [place] 1.022 (1.003-1.030) 09/04/18 03:50 <15 mg/dl mg/dL (Negative) 09/04/18 03:50 >=500 mg/dL (Negative) 09/04/18 03:50 Neg mg/dL (Negative) 09/04/18 03:50 Sm (Negative) 09/04/18 03:50 Neg (Negative) 09/04/18 03:50 Neg (Negative) 09/04/18 03:50 < 2.0 mg/dL (<2.0) 09/04/18 03:50 Ur Leukocyte Esterase Neg (Negative) 09/04/18 03:50 1.0 /HPF (0.0-6.0) 09/04/18 03:50 4.0 /HPF (0.0-6.0) 09/04/18 03:50 U Epithel Cells (Auto) < 1.0 /HPF (0-13.0) 09/04/18 03:50 Few /HPF 09/04/18 03:50 Active Medications - Current Medications Current Medications: Generic Name Dose Route Start Last Admin Trade Name Freq PRN Reason Stop Dose Admin Acetaminophen 650 mg 09/03/18 23:14 Tylenol PO Q4H PRN Pain MILD(1-3)/Fever >100.5/ARAGON Dextrose 50 ml 09/03/18 23:32 D50w (25gm) Syringe IV PRN PRN Hypoglycemia Dextrose 25 ml 09/06/18 08:34 D50w (25gm) Syringe IV 09/06/18 08:35 ONCE ONE Heparin Sodium (Porcine) 5,000 unit 09/05/18 08:28 09/05/18 22:48 Heparin SUB-Q 5,000 unit Q12HR OMID Administration Hydralazine HCl 10 mg 09/04/18 00:08 09/05/18 17:59 Apresoline IV 10 mg Q4HR PRN Administration Blood Pressure Sodium Chloride 1,000 mls @ 100 mls/hr 09/03/18 23:45 09/06/18 07:03 Nacl 0.9% 1000 Ml IV 100 mls/hr DIRECT OMID Administration Vancomycin HCl 1 gm in 250 mls @ 166.667 mls/hr 09/04/18 20:00 09/05/18 22:48 Vancomycin/Ns 1 Gm/250 Ml IV 166.667 mls/hr Q24H OMID Administration Cefepime HCl 2 gm in 100 mls @ 200 mls/hr 09/04/18 16:00 09/06/18 07:24 Maxipime/Ns 2 Gm/100 Ml IV 200 mls/hr Q12H OMID Administration Protocol Metronidazole 500 mg in 100 mls @ 100 mls/hr 09/04/18 16:00 09/06/18 01:04 Flagyl 500 Mg/100 Ml IV 100 mls/hr Q8H OMID Administration Protocol Insulin Glargine 10 units 09/06/18 08:33 Lantus SUB-Q QHS OMID Insulin Human Lispro 0 unit 09/04/18 07:30 09/05/18 22:49 Humalog SUB-Q 4 unit ACHS OMID Administration Protocol Ondansetron HCl 4 mg 09/03/18 23:14 Zofran IV Q8H PRN Nausea And Vomiting Oxycodone/Acetaminophen 1 tab 09/03/18 23:14 09/05/18 03:14 Percocet 5/325 PO 1 tab Q6H PRN Administration Pain, Moderate (4-6) Potassium Chloride 20 meq 09/06/18 08:33 K-Dur PO 09/06/18 08:34 ONCE ONE Sodium Chloride 10 ml 09/04/18 10:00 09/05/18 22:50 Sodium Chloride Flush Syringe 10 Ml IV 10 ml BID OMID Administration Sodium Chloride 10 ml 09/03/18 23:14 Sodium Chloride Flush Syringe 10 Ml IV PRN PRN LINE FLUSH
[2018-09-06] MEDS: HumaLOG SUB-Q SCH ×3 (09:02→17:50)
--- NOTE | 2018-09-06 09:54 | Progress Note ---
Assessment and Plan Cultures: 09/03/2018 Blood: no growth to date 09/04/2018 Wound: Gram Negative Rods and Jenifer species A/P: 67-year old male with a past medical history of diabetes, hypertension, dementia and elevated cholesterol presents to the ED on 09/03/18 with complaints of left foot ulcer. History was obtained by patient and daughter at bedside. The patient has had an ulcer on his left foot for about 3 month and was being monitored daily by the home health nurse. After looking at the foot, the family felt like the ulcer had gotten worse with associated non-foul smelling drainage. Admitted with: 1. Diabetic Left Foot ulcer: Left MTP Joint. Left foot xray shows allie erosive change involving the great toe metatarsal and proximal phalanx with associated soft tissue calcification and ulcer formation.Infectious and noninfectious etiologies, to include osteoarthritis, Duplex scan suggests focal stenosis in left popliteal artery. No evidence of significant stenosis on the right. ESR >140. CRP 5.1. No fever. No leukocytosis. Blood cultures are in progress. Wound culture grew GNR and Canidida species. Currently being treated with Vancomycin, Cefepime and Flagyl. MRI shows soft tissue ulceration medial to the first metatarsophalangeal joint. Mild diffuse edema in the subcutaneous tissues and muscular structures consistent cellulitis and myositis. No focal abscess. 2. Uncontrolled Type 2 diabetes: On admission Hemoglobin A1C 14.8. Recommend tight glycemic control, 3. Dementia: 4. Severe malnutrition: 5. Anemia: monitor hemoglobin 6. Stage Sacral Decubitus: continue wound care Plan: -Continue Cefepime 2 gms IV every 12 hours, D3 -Continue Flagyl 500mg IV every 8 hours,D3 -Continue Vancomycin PK dosing, D4 -follow-up blood cultures and wound cultures -follow-up wound care Order PICC line Anticipate discharge on Zosyn 4.5 mg IV every 8 hours for total 6 weeks ending 10-16-18. Order placed with Case management, Insurance denied [facility] PICC line ordered Follow up with ID clinic in 2 weeks (sent to comb machine operator) [facility] M: [id number] O:[phone] Subjective Date of service: 09/06/18 Interval history: Patient seen and examined. Reports no generalized weakness or left foot pain. No fevers. Objective - Exam Narrative Exam: Constitutional: Alert, cooperative. No acute distress. Head, Ears, Nose: Normocephalic, atraumatic. External ears, nose normal Eyes: Conjunctivae/corneas clear. No icterus. No ptosis. Neck: Supple, no meningeal signs Oral: no thrush Cardiovascular: S1, S2 normal. Respiratory: Good air entry, clear to auscultation bilaterally GI: Soft, non-tender; bowel sounds normal. No peritoneal signs Musculoskeletal: diabetic ulcer left MTP joint, minimal brownish green drainage with mild odor. Left foot edematous, decreased palpaple pulses. Skin: same as above Hem/Lymphatic: No palpable cervical or supraclavicular nodes. No lymphangitis Psych: Mood ok. Affect normal Neurological: Awake, alert, follows commands. oriented. - Constitutional Vitals: Vital Signs Temp Pulse Resp BP Pulse Ox 98.0 F 74 18 157/63 97 09/06/18 06:07 09/06/18 07:05 09/06/18 07:05 09/06/18 07:05 09/06/18 07:05 Temperature -Last 24 Hours Temperature 98.0 F Temperature 97.5 F Temperature 97.5 F Temperature 98.3 F - Labs CBC & Chem 7: 09/06/18 06:53 09/06/18 06:53 Labs: Abnormal lab results 09/05/18 09/05/18 09/05/18 Range/Units 11:17 18:40 21:31 RBC (3.65-5.03) M/mm3 Hgb (11.8-15.2) gm/dl Hct (35.5-45.6) % Potassium (3.6-5.0) mmol/L Glucose (75-100) mg/dL POC Glucose 258 H 155 H 278 H (70-105) Calcium (8.4-10.2) mg/dL 09/06/18 09/06/18 09/06/18 Range/Units 06:53 06:53 08:01 RBC 3.45 L (3.65-5.03) M/mm3 Hgb 10.4 L (11.8-15.2) gm/dl Hct 30.5 L (35.5-45.6) % Potassium 3.4 L (3.6-5.0) mmol/L Glucose 53 L (75-100) mg/dL POC Glucose 61 L (70-105) Calcium 8.1 L (8.4-10.2) mg/dL
[2018-09-06] MEDS: HEPARIN SUB-Q SCH (11:27)
[2018-09-06] MEDS: SODIUM CHLORIDE FLUSH SYRINGE 10 ML IV SCH (11:28)
--- NOTE | 2018-09-06 13:25 | Magnetic Resonance Report ---
MR LOWER EXTREMITY NON-JOINT LEFT WITHOUT CONTRAST HISTORY: Diabetic left foot ulcer TECHNIQUE: Multisequence, multiplanar MRI without contrast was performed through the left foot. FINDINGS: There appears to be soft tissue ulceration medial to the first metatarsophalangeal joint. There is mild diffuse edema in the subcutaneous tissues and muscular structures consistent cellulitis and myositis. No focal abscess. There is severely abnormal bone marrow signal within the distal first metatarsal and proximal phalanx of the great toe. There is bone marrow edema and decreased T1 signal highly suggestive of osteomyelitis. There appears to be significant bony destruction of the distal first metatarsal. The bone marrow signal within the remainder of the visualized left foot is within normal limits. No evidence for fracture, bone lesion or erosive joint pathology. The visualized musculotendinous structures are within normal limits. IMPRESSION: Cellulitis. Myositis. Osteomyelitis of the first metatarsal and proximal phalanx of the great toe.
[2018-09-06] MEDS: VANCOMYCIN/NS 1 GM/250 ML 1 GM/250 ML BAG IV SCH (19:50)
[2018-09-07] MEDS: FLAGYL 500 MG/100 ML 500 MG/100 ML BAG IV SCH ×2 (04:21→08:17)
[2018-09-07] MEDS: HEPARIN SUB-Q SCH ×3 (04:21→21:51)
[2018-09-07] MEDS: HumaLOG SUB-Q SCH ×5 (04:22→21:53)
[2018-09-07] MEDS: LANTUS SUB-Q SCH ×2 (04:23→21:53)
[2018-09-07] MEDS: SODIUM CHLORIDE FLUSH SYRINGE 10 ML IV SCH ×3 (04:23→21:55)
[2018-09-07] MEDS: MAXIPIME/NS 2 GM/100 ML 2 GM/100 ML BAG IV SCH (04:41)
[2018-09-07] MEDS: NACL 0.9% 1000 ML 1,000 ML IV SCH (04:42)
[2018-09-07 06:04] LABS: Hematocrit 29.6 % (35.5-45.6); Hemoglobin 9.9 gm/dl (11.8-15.2); Mean Corpuscular HGB Conc 33 % (32-34); Mean Corpuscular Volume 89 fl (84-94); Platelet Count 270 K/mm3 (140-440); Red Blood Count 3.32 M/mm3 (3.65-5.03); Red Cell Distribution Width 13.6 % (13.2-15.2)
[2018-09-07 06:25] LABS: BUN/Creatinine Ratio 17; Blood Urea Nitrogen 15 mg/dL (9-20); Calcium 8.1 mg/dL (8.4-10.2); Hemolysis Index 20
--- NOTE | 2018-09-07 08:24 | Progress Note ---
Assessment and Plan - Patient Problems (1) Diabetic foot ulcer Current Visit: Yes Status: Acute Qualifiers: Diabetic foot ulcer location: unspecified part of foot Diabetes mellitus type: type 2 Non-pressure ulcer stage: with fat layer exposed Plan to address problem: Pt stable. Patient has a chronic ulcer on the left foot. There is no obvious deep infection of the foot. He has no tenderness at this time. MRI shows osteomyelitis. Agree with plan for IV Abx. Reviewed Vascular recommendations. At this time, no surgical intervention needed. Rec: 1) f/u in wound care center for ongoing wound care. 2) IV Abx outpt arrangements. 3) ok to d/c from my standpoint. Please call with questions. Time=10min Subjective Date of service: 09/07/18 Patient Reports: Positive: no new complaints Objective Vital Signs - 12hr 09/06/18 09/07/18 23:48 05:29 Temperature 98.7 F 98.0 F Pulse Rate 74 66 Respiratory 19 17 Rate Blood Pressure 147/72 163/71 O2 Sat by Pulse 97 99 Oximetry - General physical appearance no distress, no pain, other (looks well) - Eyes normal occular movement - Respiratory normal expansion, normal respiratory effort - Integumentary other (wound stable) - Labs 09/07/18 05:44 09/07/18 05:44 Diabetes panel 09/07/18 09/07/18 Range/Units 05:44 05:44 Sodium 140 (137-145) mmol/L Potassium 3.6 (3.6-5.0) mmol/L Chloride 104.6 (98-107) mmol/L Carbon Dioxide 24 (22-30) mmol/L BUN 15 (9-20) mg/dL Creatinine 0.9 (0.8-1.5) mg/dL Glucose 147 H 145 H (75-100) mg/dL Calcium 8.1 L (8.4-10.2) mg/dL Calcium panel 09/07/18 Range/Units 05:44 Calcium 8.1 L (8.4-10.2) mg/dL Pituitary panel 09/07/18 09/07/18 Range/Units 05:44 05:44 Sodium 140 (137-145) mmol/L Potassium 3.6 (3.6-5.0) mmol/L Chloride 104.6 (98-107) mmol/L Carbon Dioxide 24 (22-30) mmol/L BUN 15 (9-20) mg/dL Creatinine 0.9 (0.8-1.5) mg/dL Glucose 147 H 145 H (75-100) mg/dL Calcium 8.1 L (8.4-10.2) mg/dL Adrenal panel 09/07/18 09/07/18 Range/Units 05:44 05:44 Sodium 140 (137-145) mmol/L Potassium 3.6 (3.6-5.0) mmol/L Chloride 104.6 (98-107) mmol/L Carbon Dioxide 24 (22-30) mmol/L BUN 15 (9-20) mg/dL Creatinine 0.9 (0.8-1.5) mg/dL Glucose 147 H 145 H (75-100) mg/dL Calcium 8.1 L (8.4-10.2) mg/dL - Imaging Additional Studies: MRI foot report reviewed
--- NOTE | 2018-09-07 09:18 | Progress Note ---
Assessment and Plan Cultures: 09/03/2018 Blood: no growth to date 09/04/2018 Wound: Providencia Tetgeri, Enterococus, Jenifer A/P: 67-year old male with a past medical history of diabetes, hypertension, dementia and elevated cholesterol presents to the ED on 09/03/18 with complaints of left foot ulcer. History was obtained by patient and daughter at bedside. The patient has had an ulcer on his left foot for about 3 month and was being monitored daily by the home health nurse. After looking at the foot, the family felt like the ulcer had gotten worse with associated non-foul smelling drainage. Admitted with: 1. Diabetic Left Foot ulcer: Left MTP Joint. Left foot xray shows allie erosive change involving the great toe metatarsal and proximal phalanx with associated soft tissue calcification and ulcer formation.Infectious and noninfectious etiologies, to include osteoarthritis, Duplex scan suggests focal stenosis in left popliteal artery. No evidence of significant stenosis on the right. ESR >140. CRP 5.1. No fever. No leukocytosis. Blood cultures are in progress. Wound culture grew Providencia Tetgeri, Enterococus and Jenifer. Currently being treated with Zosyn. MRI shows osteomyelitis of the first metatarsal and proximal phalanx of the great toe 2. Uncontrolled Type 2 diabetes: On admission Hemoglobin A1C 14.8. Recommend tight glycemic control, 3. Dementia: 4. Severe malnutrition: 5. Anemia: monitor hemoglobin 6. Stage Sacral Decubitus: continue wound care Plan: -Discontinue Cefepime, Flagyl and Vancomycin Start Zosyn 4.5 mg IV every 8 hours Anticipate discharge on Zosyn 4.5 mg IV every 8 hours for total 6 weeks ending 10-16-18. Order placed with Case management Follow up with ID clinic in 2 weeks (sent to stock transfer clerk) Continue wound care outpatient [facility] M: [id number] O:[phone] Subjective Date of service: 09/07/18 Interval history: Patient seen and examined. Reports no generalized weakness or left foot pain. No fevers. Objective - Exam Narrative Exam: Constitutional: Alert, cooperative. No acute distress. Head, Ears, Nose: Normocephalic, atraumatic. External ears, nose normal Eyes: Conjunctivae/corneas clear. No icterus. No ptosis. Neck: Supple, no meningeal signs Oral: no thrush Cardiovascular: S1, S2 normal. Respiratory: Good air entry, clear to auscultation bilaterally GI: Soft, non-tender; bowel sounds normal. No peritoneal signs Musculoskeletal: diabetic ulcer left MTP joint, minimal brownish green drainage with mild odor. Left foot edematous, decreased palpaple pulses. Skin: same as above Hem/Lymphatic: No palpable cervical or supraclavicular nodes. No lymphangitis Psych: Mood ok. Affect normal Neurological: Awake, alert, follows commands. oriented. - Constitutional Vitals: Vital Signs Temp Pulse Resp BP Pulse Ox 98.0 F 66 17 163/71 99 09/07/18 05:29 09/07/18 05:29 09/07/18 05:29 09/07/18 05:29 09/07/18 05:29 Temperature -Last 24 Hours Temperature 98.0 F Temperature 98.7 F Temperature 97.3 F Temperature 98.6 F - Labs CBC & Chem 7: 09/07/18 05:44 09/07/18 05:44 Labs: Abnormal lab results 09/06/18 09/06/18 09/06/18 Range/Units 12:00 16:57 21:37 WBC (4.5-11.0) K/mm3 RBC (3.65-5.03) M/mm3 Hgb (11.8-15.2) gm/dl Hct (35.5-45.6) % Glucose (75-100) mg/dL POC Glucose 167 H 166 H 158 H (70-105) Calcium (8.4-10.2) mg/dL 09/07/18 09/07/18 09/07/18 Range/Units 05:29 05:44 05:44 WBC 4.1 L (4.5-11.0) K/mm3 RBC 3.32 L (3.65-5.03) M/mm3 Hgb 9.9 L (11.8-15.2) gm/dl Hct 29.6 L (35.5-45.6) % Glucose 147 H (75-100) mg/dL POC Glucose < 40 L (70-105) Calcium 8.1 L (8.4-10.2) mg/dL 09/07/18 09/07/18 09/07/18 Range/Units 05:44 06:17 08:04 WBC (4.5-11.0) K/mm3 RBC (3.65-5.03) M/mm3 Hgb (11.8-15.2) gm/dl Hct (35.5-45.6) % Glucose 145 H (75-100) mg/dL POC Glucose 119 H 63 L (70-105) Calcium (8.4-10.2) mg/dL
--- NOTE | 2018-09-07 10:54 | Progress Note ---
Assessment and Plan 67-year-old male with a left first digit nonhealing ulceration. 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 The left dorsalis pedis is nonpalpable but the left posterior tibial artery is palpable. Patient is pleasantly demented. MRI demonstrates osteomyelitis. Reviewed patient's chart and JESUS/PVR results. The radiology report does not appear to understand that physiologic testing involves pulse volume recordings. The resulting waveforms not arterial dopplers. Referring to them as biphasic or monophasic is incorrect. The ankle pulse volume recording is relatively preserved at the ankle and the toe volume recording at the first digit are stronger on the right side than left side, but both waveforms are probably adequate to heal wounds. If IV antibiotics are considered, no revascularization necessary. If amputation is considered, may benefit from angiography. Reviewed notes and IV antibiotics are being considered currently. HGBA1C 14.8. Unfortunately, without proper diabetic control, the wound will likely continue to deteriorate. Recommend Darco shoe to offload forefoot. Subjective Date of service: 09/07/18 Interval history: Reviewed patient's chart and JESUS results. The radiology report does not appear to understand that physiologic testing involves pulse volume recordings. The resulting waveforms not arterial dopplers. Referring to them as biphasic or monophasic is incorrect. The ankle pulse volume recording is relatively preserved at the ankle and the toe volume recording at the first digit are stronger on the right side than left side, but both waveforms are probably adequate to heal wounds. Patient feels her right. Right dorsalis pedis palpable. Left posterior tibial pulse palpable. Objective - Constitutional Vitals: Vital Signs - 12hr 09/06/18 09/07/18 23:48 05:29 Temperature 98.7 F 98.0 F Pulse Rate 74 66 Respiratory 19 17 Rate Blood Pressure 147/72 163/71 O2 Sat by Pulse 97 99 Oximetry General appearance: Present: no acute distress - EENT Eyes: EOM intact ENT: hearing intact - Respiratory Respiratory effort: normal Extremities: normal temperature, normal color, abnormal (see subjective ; left 1st MTP wound) - Gastrointestinal General gastrointestinal: Present: soft - Psychiatric Psychiatric: no appropriate mood/affect, no intact judgment & insight, cooperative - Labs CBC & Chem 7: 09/07/18 05:44 09/07/18 05:44 Labs: Abnormal lab results 09/06/18 09/06/18 09/06/18 Range/Units 12:00 16:57 21:37 WBC (4.5-11.0) K/mm3 RBC (3.65-5.03) M/mm3 Hgb (11.8-15.2) gm/dl Hct (35.5-45.6) % Glucose (75-100) mg/dL POC Glucose 167 H 166 H 158 H (70-105) Calcium (8.4-10.2) mg/dL 09/07/18 09/07/18 09/07/18 Range/Units 05:29 05:44 05:44 WBC 4.1 L (4.5-11.0) K/mm3 RBC 3.32 L (3.65-5.03) M/mm3 Hgb 9.9 L (11.8-15.2) gm/dl Hct 29.6 L (35.5-45.6) % Glucose 147 H (75-100) mg/dL POC Glucose < 40 L (70-105) Calcium 8.1 L (8.4-10.2) mg/dL 09/07/18 09/07/18 09/07/18 Range/Units 05:44 06:17 08:04 WBC (4.5-11.0) K/mm3 RBC (3.65-5.03) M/mm3 Hgb (11.8-15.2) gm/dl Hct (35.5-45.6) % Glucose 145 H (75-100) mg/dL POC Glucose 119 H 63 L (70-105) Calcium (8.4-10.2) mg/dL Medications & Allergies - Medications Allergies/Adverse Reactions: Allergies No Known Allergies Allergy (Verified 11/13/17 20:38) Home Medications: Home Medications Medication Instructions Recorded Confirmed Last Taken Type Glipizide 03/09/17 Unknown History metFORMIN 03/09/17 Unknown History Levemir Flextouch 25 unit SUB-Q HS MDD 25 units 11/10/17 11/10/17 Unknown History cephALEXin [Keflex] 500 mg PO Q8HR #15 cap 11/10/17 Unknown Rx Acetaminophen [Tylenol Arthritis] 650 mg PO Q6HR PRN #30 tablet.er 11/14/17 Unknown Rx Ibuprofen [Motrin] 600 mg PO Q8H PRN #30 tablet 11/14/17 Unknown Rx Active Medications: Generic Name Dose Route Start Last Admin Trade Name Abdiel PRN Reason Stop Dose Admin Acetaminophen 650 mg 09/03/18 23:14 Tylenol PO Q4H PRN Pain MILD(1-3)/Fever >100.5/ARAGON Dextrose 50 ml 09/03/18 23:32 09/07/18 05:29 D50w (25gm) Syringe IV 50 ml PRN PRN Administration Hypoglycemia Heparin Sodium (Porcine) 5,000 unit 09/05/18 08:28 09/07/18 09:53 Heparin SUB-Q 5,000 unit Q12HR OMID Administration Hydralazine HCl 10 mg 09/04/18 00:08 09/05/18 17:59 Apresoline IV 10 mg Q4HR PRN Administration Blood Pressure Sodium Chloride 1,000 mls @ 100 mls/hr 09/03/18 23:45 09/07/18 04:42 Nacl 0.9% 1000 Ml IV 100 mls/hr DIRECT OMID Administration Piperacillin Sod/Tazobactam Sod 4.5 gm in 100 mls @ 200 mls/hr 09/07/18 12:00 Zosyn/Ns 4.5gm/100ml IV 10/16/18 22:29 Q8HR [facility] Protocol Insulin Glargine 10 units 09/06/18 22:00 09/07/18 04:23 Lantus SUB-Q Not Given QHS [facility] Insulin Human Lispro 0 unit 09/04/18 07:30 09/07/18 08:07 Humalog SUB-Q Not Given ACHS [facility] Protocol Ondansetron HCl 4 mg 09/03/18 23:14 Zofran IV Q8H PRN Nausea And Vomiting Oxycodone/Acetaminophen 1 tab 09/03/18 23:14 09/05/18 03:14 Percocet 5/325 PO 1 tab Q6H PRN Administration Pain, Moderate (4-6) Sodium Chloride 10 ml 09/04/18 10:00 09/07/18 10:35 Sodium Chloride Flush Syringe 10 Ml IV 10 ml BID OMID Administration Sodium Chloride 10 ml 09/03/18 23:14 Sodium Chloride Flush Syringe 10 Ml IV PRN PRN LINE FLUSH
[2018-09-07] MEDS: APRESOLINE IV PRN ×2 (11:54→17:51)
--- NOTE | 2018-09-07 12:14 | XRay Report ---
AP CHEST: HISTORY: Right arm PICC placement The right arm PICC terminates in the lower SVC. AP view of the chest demonstrates a normal mediastinal and cardiac contour with clear lungs and normal bony and soft tissue structures. Moderate aortic calcifications are noted. IMPRESSION: Unremarkable AP chest.
[2018-09-07] MEDS: ZOSYN/NS 4.5GM/100ML 4.5 GM/100 ML VIAL IV SCH ×2 (12:30→21:52)
--- NOTE | 2018-09-07 12:55 | Discharge Summary ---
Providers - Providers Date of Admission: 09/03/18 23:14 Date of discharge: 09/07/18 Attending physician: RUFINA SANTOS 09/03/18 22:31 Consult to Physician [CONS] Urgent Comment: Consulting Provider: SHUBHAM BAH Physician Instructions: Reason For Exam: left mtp joint osteo, infected DM ulcer 09/04/18 08:26 Consult to Physician [CONS] Routine Comment: Consulting Provider: KAYLEEN GOMEZ Physician Instructions: Reason For Exam: left foot ulcer, evaluate for osteomyelitis 09/04/18 08:27 Consult to Wound/ET Nurse [CONS] Routine Reason For Exam: wound eval 09/05/18 07:21 Consult to Physician [CONS] Routine Comment: Consulting Provider: MIMI FONTANEZ Physician Instructions: Reason For Exam: non healing foot ulcer, eval for osteo and debrid 09/05/18 12:24 Consult to Physician [CONS] Routine Comment: Consulting Provider: KARISSA LAYNE Physician Instructions: Reason For Exam: PAD, non healing foot ulcer 09/06/18 08:02 Consult to Wound/ET Nurse [CONS] Routine Reason For Exam: wound eval 09/06/18 14:44 PICC Line Placement [Consult to PICC Line RN] [CONS] Urgent Reason For Exam: PICC line placement OPAT Type Line:: PICC 09/06/18 15:39 Consult to Case Management [CONS] Urgent Services Needed at Discharge: Home Health Services Notified:: yes Additional Physician Instructions: [facility] ([facility] M [phone] O [phone] F [phone] OUTPATIENT PARENTERAL ANTIBIOTIC THERAPY ORDERS Diagnoses: Osteomyelitis of the first metatarsal and proximal phalanx of the great toe. Antimicrobial administration: Anticipate discharge on Zosyn 4.5 mg IV every 8 hours for 6 weeks ending 10-16-18. Insurance denied [facility]. Remove PICC line after last dose unless otherwise instructed. Lines: PICC Lab monitoring: CBC, BUN, Creatinine, ALT, AST, CRP, ESR once a week preferly on Wednesday morning. Please fax results to [phone] and call [phone] for critical lab results. Rosa Armstrong NP/Dr. Kristel RUDOLPH Date: 09/06/18 [facility] Condition: Good Hospital course: Patient is 67-year-old diabetic with history of hypertension diabetes chronic foot ulcer presented with diabetic foot ulcer found to have osteomyelitis on MRI was set up for 6 week antibiotics with Zosyn. Patient had midline placed. Discharge medications set up by infectious disease. Patient has follow with infectious disease already in place and plan. Discharge summary and medicines have been completed. Disposition: -01 TO HOME OR SELFCARE - Discharge Diagnoses (1) Diabetic foot ulcer Status: Acute Qualifiers: Diabetic foot ulcer location: unspecified part of foot Diabetes mellitus type: type 2 Non-pressure ulcer stage: with fat layer exposed (2) Foot ulcer, left Status: Acute (3) Osteomyelitis of left foot Status: Acute (4) Uncontrolled diabetes mellitus Status: Acute Core Measure Documentation - Palliative Care Palliative Care/ Comfort Measures: Not Applicable - Core Measures Any of the following diagnoses?: none Exam - Constitutional Vitals: Temp Pulse Resp BP Pulse Ox 98.0 F 75 20 167/84 98 09/07/18 05:29 09/07/18 11:42 09/07/18 11:42 09/07/18 11:54 09/07/18 11:42 General appearance: Present: no acute distress, well-nourished - EENT Eyes: Present: PERRL ENT: hearing intact, clear oral mucosa - Neck Neck: Present: supple, normal ROM - Respiratory Respiratory: bilateral: CTA - Cardiovascular Rhythm: regular - Extremities Extremities: pulses symmetrical, No edema Extremity abnormal: other (ulcer bandaged minimal discharge.) Peripheral Pulses: within normal limits - Abdominal General gastrointestinal: Present: soft, non-tender, non-distended, normal bowel sounds - Musculoskeletal Musculoskeletal: gait normal, strength equal bilaterally - Psychiatric Psychiatric: appropriate mood/affect, intact judgment & insight Plan Activity: up only with assistance, fall precautions Diet: diabetic Wound: keep clean and dry, change dressing, per wound nurse instructions Follow up with: SAAD LYNN MD [Primary Care Provider] - 3-5 Days
[2018-09-08] MEDS: ZOSYN/NS 4.5GM/100ML 4.5 GM/100 ML VIAL IV SCH (05:41)
[2018-09-08] MEDS: HumaLOG SUB-Q SCH ×2 (08:28→13:21)
--- NOTE | 2018-09-08 08:41 | Progress Note ---
Assessment and Plan Cultures: 09/03/2018 Blood: no growth to date 09/04/2018 Wound: Providencia Tetgeri, Enterococus, Jenifer A/P: 67-year old male with a past medical history of diabetes, hypertension, dementia and elevated cholesterol presents to the ED on 09/03/18 with complaints of left foot ulcer. History was obtained by patient and daughter at bedside. The patient has had an ulcer on his left foot for about 3 month and was being monitored daily by the home health nurse. After looking at the foot, the family felt like the ulcer had gotten worse with associated non-foul smelling drainage. Admitted with: 1. Diabetic Left Foot ulcer: Left MTP Joint. Left foot xray shows allie erosive change involving the great toe metatarsal and proximal phalanx with associated soft tissue calcification and ulcer formation.Infectious and noninfectious etiologies, to include osteoarthritis, Duplex scan suggests focal stenosis in left popliteal artery. No evidence of significant stenosis on the right. ESR >140. CRP 5.1. No fever. No leukocytosis. Blood cultures are in progress. Wound culture grew Providencia Tetgeri, Enterococus and Jenifer. Currently being treated with Zosyn. MRI shows osteomyelitis of the first metatarsal and proximal phalanx of the great toe 2. Uncontrolled Type 2 diabetes: On admission Hemoglobin A1C 14.8. Recommend tight glycemic control, 3. Dementia: 4. Severe malnutrition: 5. Anemia: monitor hemoglobin 6. Stage Sacral Decubitus: continue wound care Plan: Continue Zosyn 4.5 mg IV every 8 hours Anticipate discharge on Zosyn 4.5 mg IV every 8 hours for total 6 weeks ending 10-16-18. Order placed with Case management Follow up with ID clinic in 2 weeks (sent to jewelry bench molder) Continue wound care outpatient [facility] M: [phone] O:[phone] Subjective Date of service: 09/08/18 Interval history: Patient seen and examined. Reports no generalized weakness or left foot pain. No fevers. Objective - Exam Narrative Exam: Constitutional: Alert, cooperative. No acute distress. Head, Ears, Nose: Normocephalic, atraumatic. External ears, nose normal Eyes: Conjunctivae/corneas clear. No icterus. No ptosis. Neck: Supple, no meningeal signs Oral: no thrush Cardiovascular: S1, S2 normal. Respiratory: Good air entry, clear to auscultation bilaterally GI: Soft, non-tender; bowel sounds normal. No peritoneal signs Musculoskeletal: diabetic ulcer left MTP joint, minimal brownish green drainage with mild odor. Left foot edematous, decreased palpaple pulses. Skin: same as above Hem/Lymphatic: No palpable cervical or supraclavicular nodes. No lymphangitis Psych: Mood ok. Affect normal Neurological: Awake, alert, follows commands. oriented. - Constitutional Vitals: Vital Signs Temp Pulse Resp BP Pulse Ox 98.3 F 74 16 144/70 97 09/08/18 05:14 09/08/18 05:14 09/08/18 05:14 09/08/18 05:14 09/08/18 05:14 Temperature -Last 24 Hours Temperature 98.3 F Temperature 98.7 F Temperature 99.5 F - Labs CBC & Chem 7: 09/07/18 05:44 09/07/18 05:44 Labs: Abnormal lab results 09/07/18 09/07/18 09/07/18 Range/Units 11:53 17:13 21:21 POC Glucose 140 H 207 H 185 H (70-105) 09/08/18 Range/Units 07:55 POC Glucose 161 H (70-105)
[2018-09-08] MEDS: HEPARIN SUB-Q SCH (10:50)
[2018-09-08] MEDS: SODIUM CHLORIDE FLUSH SYRINGE 10 ML IV SCH (10:50)
--- NOTE | 2018-09-08 11:38 | Progress Note ---
Subjective Date of service: 09/08/18 Interval history: Assessment and plan: Patient is a 67 yo -[place] man with history of diabetes mellitus type 2, dementia, dyslipidemia, hypertension and chronic left foot ulcer who presented to [facility] ED due to worsening left foot ulcer. lisseth MONTELONGOther had to be removed from ED by security. * 3v Left XRAy IMPRESSION: 1. Bony erosive change involving the great toe metatarsal and proximal phalanx with associated abnormal adjacent soft tissues with soft tissue calcification and ulcer formation. Infectious and noninfectious etiologies, to include osteoarthritis, need to be considered. If further imaging is required, MRI may be helpful. Diabetic left foot ulcer: continue abx, ID is following, input noted, Dr. Isbell ar, MRI of the left foot results reviewed-osteomyelitis of the most MTP and proximal phalanx DM2 with hyperglycemia, -On SSI and Lantus, A1c level is 14.8, need better control Severe malnutrition, poa-Consult Car Rental Sales Assistant Acute metabolic encephalopathy, poa-Supportive care Hypokalemia: Resolved Hypertension-Stable Dementia -Stable Anemia of chronic disease-H/H stable DVT prophylaxis with Lovenox Disposition: Patient discharged home with IV antibiotics for 6 weeks Discharge summary was done by Dr. Perera yesterday Consulted Gen. Surgeon, Dr. Stringer: Follow up in outpatient wound care clinic at [facility], [place] Ordered Arterial doppler==>reviewed Vascular note by Dr. Nazario reviewed Hypoglycemia, BG 61: lantus dose adjusted Disposition: Discussed with case management assistant. Patient was discharged yesterday Today but case management assistant IV antibiotic arrangements were done and patient will be going home today PE: Gen: thin frail, chronically ill appearing, NAD, Awake, Alert, Orientated x 2, poor historian poor memory HEENT: NCAT, EOMI, PERRL, OP Clear Neck: supple, no adenopathy, no thyromegaly, no JVD CVS/Heart: RRR, normal S1S2, pulses present bilaterally Chest/Lungs: CTA B, Symmetrical chest expansion, good air entry bilaterally GI/Abdomen: soft, NTND, good bowel sounds, no guarding or rebound /Bladder: no suprapubic tenderness, no CVA or paraspinal tenderness Extermity/Skin: left lateral wet foot ulcer covered with dressing Neuro: CN 2-12 grossly intact, no new focal deficits Objective - Constitutional Vitals: Vital Signs - 12hr 09/08/18 05:14 Temperature 98.3 F Pulse Rate 74 Respiratory 16 Rate Blood Pressure 144/70 O2 Sat by Pulse 97 Oximetry - Labs CBC & Chem 7: 09/07/18 05:44 09/07/18 05:44 Labs: Abnormal lab results 09/07/18 09/07/18 09/07/18 Range/Units 11:53 17:13 21:21 POC Glucose 140 H 207 H 185 H (70-105) 09/08/18 Range/Units 07:55 POC Glucose 161 H (70-105)
[2018-09-08 11:47] VITALS: BP 167/82
== END 2018-09-08 14:20 | disposition home health service (06) | DRG 637 ==
LOC: ED 18:08 → 3A 23:14
PROVIDERS: ADMIT Internal Medicine; ATTEND Internal Medicine
DX: E11.69 Type 2 diabetes mellitus with other specified complication (principal); G93.41 Metabolic encephalopathy; E43 Unspecified severe protein-calorie malnutrition; L97.422 Non-pressure chronic ulcer of left heel and midfoot with fat layer exposed; M86.8X7 Other osteomyelitis, ankle and foot; E11.621 Type 2 diabetes mellitus with foot ulcer; E11.65 Type 2 diabetes mellitus with hyperglycemia; D63.8 Anemia in other chronic diseases classified elsewhere; E87.6 Hypokalemia; L89.159 Pressure ulcer of sacral region, unspecified stage; I10 Essential (primary) hypertension; F03.90 Unspecified dementia, unspecified severity, without behavioral disturbance, psychotic disturbance, mood disturbance, and anxiety; Z83.3 Family history of diabetes mellitus; Z82.49 Family history of ischemic heart disease and other diseases of the circulatory system; Z79.84 Long term (current) use of oral hypoglycemic drugs; Z68.24 Body mass index [BMI] 24.0-24.9, adult
CPT/HCPCS: 36415; 71045; 80048; 80053; 81001; 82140; 82805; 82947; 82962; 83036; 85025; 85027; 85652; 86140; 87040; 87076; 87116; 87186; 93922; 93925; G0378; J0360; J0692; J1644; J1815; J2543; J3370; J7030

== ENCOUNTER 2018-09-09 13:53 | Observation (INO) | payer MEDICARE ==
[2018-09-09] MEDS ORDERED: ZOSYN/NS 4.5GM/100ML 4.5 GM/100 ML VIAL IV ONE (17:35)
[2018-09-09] MEDS ORDERED: ZOFRAN IV PRN (18:03)
[2018-09-09] MEDS ORDERED: SODIUM CHLORIDE FLUSH SYRINGE 10 ML IV PRN (18:03)
[2018-09-09] MEDS ORDERED: PROVENTIL IH PRN (18:03)
[2018-09-09] MEDS ORDERED: TYLENOL PO PRN (18:03)
[2018-09-09] MEDS ORDERED: NON-FORMULARY (Acetaminophen [Tylenol Arthritis] 650 MG) PO PRN (18:06)
[2018-09-09] MEDS ORDERED: IBUPROFEN PO PRN (18:06)
[2018-09-09] MEDS ORDERED: D50W (25GM) Syringe IV PRN (18:08)
[2018-09-09 18:25] LABS: Eosinophils # (Auto) 0.2 K/mm3 (0.0-0.4); Eosinophils % (Auto) 2.6 % (0.0-4.3); Hematocrit 28.5 % (35.5-45.6); Hemoglobin 9.7 gm/dl (11.8-15.2); Lymphocytes # (Auto) 2.2 K/mm3 (1.2-5.4); Lymphocytes % (Auto) 30.2 % (13.4-35.0); Mean Corpuscular HGB Conc 34 % (32-34); Mean Corpuscular Volume 90 fl (84-94); Monocytes # (Auto) 0.4 K/mm3 (0.0-0.8); Monocytes % (Auto) 6.1 % (0.0-7.3); Platelet Count 301 K/mm3 (140-440); Red Blood Count 3.19 M/mm3 (3.65-5.03); Red Cell Distribution Width 14.2 % (13.2-15.2)
[2018-09-09 18:41] LABS: Alanine Aminotransferase 25 units/L (7-56); Albumin 3.1 g/dL (3.9-5); BUN/Creatinine Ratio 17; Blood Urea Nitrogen 17 mg/dL (9-20); Hemolysis Index 7
--- NOTE | 2018-09-09 19:09 | Emergency Department Report ---
- General Chief Complaint: Tube Replacement Stated Complaint: PICKLINE REMOVED Time Seen by Provider: 09/09/18 16:10 Source: patient Mode of arrival: Stretcher Limitations: No Limitations - History of Present Illness Initial Comments: Mr. Thakur is a 67-year-old male with history of uncontrolled diabetes mellitus, diabetic foot ulcer and osteomyelitis of left foot. Today he presents with dislodgment of his PICC line. Unclear if he had a PICC line or midline the electronic medical record. No current bleeding from the region of his right arm. Denies chest pain or shortness of breath. According to electronic medical record, he is receiving 6 weeks of Zosyn antibiotic therapy. -: This afternoon Extremity Location: Right: Arm Place: home Context: accidental (the PICC line dislodged while he was changing his clothes) Associated Symptoms: none Treatments Prior to Arrival: bandage - Related Data Home Medications Medication Instructions Recorded Confirmed Last Taken Glipizide 03/09/17 Unknown metFORMIN 03/09/17 Unknown Levemir Flextouch 25 unit SUB-Q HS MDD 25 units 11/10/17 11/10/17 Unknown Previous Rx's Medication Instructions Recorded Last Taken Type cephALEXin [Keflex] 500 mg PO Q8HR #15 cap 11/10/17 Unknown Rx Acetaminophen [Tylenol Arthritis] 650 mg PO Q6HR PRN #30 tablet.er 11/14/17 Unknown Rx Ibuprofen [Motrin] 600 mg PO Q8H PRN #30 tablet 11/14/17 Unknown Rx Allergies Allergy/AdvReac Type Severity Reaction Status Date / Time No Known Allergies Allergy Verified 11/13/17 20:38 ED Review of Systems ROS: Stated complaint: PICKLINE REMOVED Other details as noted in HPI Comment: All other systems reviewed and negative Constitutional: denies: fever, malaise Respiratory: denies: cough ED Past Medical Hx - Past Medical History Previous Medical History?: Yes Hx Hypertension: Yes Hx CVA: No Hx Heart Attack/AMI: No Hx Congestive Heart Failure: No Hx Diabetes: Yes Hx Deep Vein Thrombosis: No Hx GERD: No Hx Arthritis: No Hx Headaches / Migraines: No Hx Kidney Stones: No Hx Asthma: No Hx COPD: No Hx Dementia: Yes Hx HIV: No Additional medical history: dementia. elevated cholesterol - Surgical History Hx Pacemaker: No Hx Internal Defibrillator: No - Social History Smoking Status: Never Smoker Substance Use Type: None - Medications Home Medications: Home Medications Medication Instructions Recorded Confirmed Last Taken Type Glipizide 03/09/17 Unknown History metFORMIN 03/09/17 Unknown History Levemir Flextouch 25 unit SUB-Q HS MDD 25 units 11/10/17 11/10/17 Unknown History cephALEXin [Keflex] 500 mg PO Q8HR #15 cap 11/10/17 Unknown Rx Acetaminophen [Tylenol Arthritis] 650 mg PO Q6HR PRN #30 tablet.er 11/14/17 Unknown Rx Ibuprofen [Motrin] 600 mg PO Q8H PRN #30 tablet 11/14/17 Unknown Rx ED Physical Exam - General Limitations: No Limitations General appearance: alert, in no apparent distress - Head Head exam: Present: atraumatic, normocephalic - Eye Eye exam: Present: normal appearance - ENT ENT exam: Present: mucous membranes moist - Neck Neck exam: Present: normal inspection, full ROM - Respiratory Respiratory exam: Present: normal lung sounds bilaterally. Absent: respiratory distress, wheezes, rales, rhonchi - Cardiovascular Cardiovascular Exam: Present: regular rate, normal rhythm, normal heart sounds. Absent: rubs, gallop - GI/Abdominal GI/Abdominal exam: Present: soft, normal bowel sounds. Absent: distended, tenderness, guarding, rebound - Rectal Rectal exam: Present: deferred - Extremities Exam Extremities exam: Present: normal inspection - Back Exam Back exam: Present: normal inspection - Neurological Exam Neurological exam: Present: alert, other (Mr. Thakur appears slightly confused. He able to state name and understand the current situation. Otherwise he is a poor historian) - Psychiatric Psychiatric exam: Present: normal affect, normal mood - Skin Skin exam: Present: warm, other (bandage on right arm) ED Course Vital Signs 09/09/18 09/09/18 14:29 18:09 Temperature 98.6 F Pulse Rate 73 84 Respiratory 16 16 Rate Blood Pressure 173/75 Blood Pressure 160/85 [Left] O2 Sat by Pulse 98 96 Oximetry ED Medical Decision Making - Lab Data Result diagrams: 09/09/18 18:04 09/09/18 18:04 - Medical Decision Making Mr. Thakur has history of osteomyelitis of the foot. He is currently being treated with Zosyn therapy. Dr. Oliver hospitalist will admit the patient for IV antibiotic therapy. PICC line team was contacted. PICC line team will not be available until Wednesday. Critical care attestation.: If time is entered above; I have spent that time in minutes in the direct care of this critically ill patient, excluding procedure time. ED Disposition Clinical Impression: Osteomyelitis of left foot, Status post PICC central line placement Disposition: OP ADMIT IP TO THIS HOSP Is pt being admited?: Yes Does the pt Need Aspirin: No
--- NOTE | 2018-09-09 20:52 | History and Physical Report ---
History of Present Illness Date of admission: 09/09/18 18:03 Chief complaint: I need my medicine History of present illness: 67 YO Male with DM complicated by Diabetic Foot Ulcer, Osteomyelitis on home IV antibiotic presents to ED for evaluation. Pt reports that his PICC line was dislodged and that he did not receive his antibiotic therapy. EMS notified, and the patient was transported to [facility]. Pt seen and evaluated in ED and found to have Dislodged PICC line without active bleeding. Pt admitted to medical floor and initiated on IV antibiotic therapy. PICC line team consulted in ED. Pt denies fever, chills, CP, Palpitations, NVD, Trauma, BRBPR, Productive cough, skin rash, or recent ill contacts. Pt admitted to medical floor. NO prior admission for review. All listed medication reconciled at time of admission. Past History Past Medical History: diabetes, other (Osteomyelitis) Past Surgical History: No surgical history, Other (reviewed) Social history: single. denies: smoking, alcohol abuse, prescription drug abuse Family history: diabetes, hypertension Medications and Allergies Allergies Allergy/AdvReac Type Severity Reaction Status Date / Time No Known Allergies Allergy Verified 11/13/17 20:38 Home Medications Medication Instructions Recorded Confirmed Last Taken Type Glipizide 03/09/17 Unknown History metFORMIN 03/09/17 Unknown History Levemir Flextouch 25 unit SUB-Q HS MDD 25 units 11/10/17 11/10/17 Unknown History cephALEXin [Keflex] 500 mg PO Q8HR #15 cap 11/10/17 Unknown Rx Acetaminophen [Tylenol Arthritis] 650 mg PO Q6HR PRN #30 tablet.er 11/14/17 Unknown Rx Ibuprofen [Motrin] 600 mg PO Q8H PRN #30 tablet 11/14/17 Unknown Rx Active Meds: Active Medications Acetaminophen (Tylenol) 650 mg PO Q4H PRN PRN Reason: Pain MILD(1-3)/Fever >100.5/ARAGON Albuterol (Proventil) 2.5 mg IH Q4HRT PRN PRN Reason: Shortness Of Breath Dextrose (D50w (25gm) Syringe) 50 ml IV PRN PRN PRN Reason: Hypoglycemia Famotidine (Pepcid) 20 mg PO BID OMID Piperacillin Sod/Tazobactam Sod (Zosyn/Ns 4.5gm/100ml) 4.5 gm in 100 mls @ 200 mls/hr IV Q8H OMID; Protocol Ibuprofen (Ibuprofen) 600 mg PO Q8H PRN PRN Reason: Pain Insulin Human Lispro (Humalog) 0 unit SUB-Q Q6HR OMID; Protocol Ondansetron HCl (Zofran) 4 mg IV Q8H PRN PRN Reason: Nausea And Vomiting Sodium Chloride (Sodium Chloride Flush Syringe 10 Ml) 10 ml IV BID OMID Sodium Chloride (Sodium Chloride Flush Syringe 10 Ml) 10 ml IV PRN PRN PRN Reason: LINE FLUSH Review of Systems Constitutional: no weight loss, no weight gain Ears, nose, mouth and throat: no ear pain, no ear discharge, no tinnitis, no decreased hearing, no nose pain, no nasal congestion, no nasal discharge Cardiovascular: no chest pain, no orthopnea, no palpitations, no rapid/irregular heart beat, no edema, no lightheadedness Respiratory: no cough, no cough with sputum, no excessive sputum, no hemoptysis, no shortness of breath Gastrointestinal: no abdominal pain, no nausea, no vomiting, no diarrhea, no constipation, no change in bowel habits, no hematemesis Genitourinary Male: no dysuria, no hematuria, no flank pain, no discharge, no urinary frequency, no nocturia Rectal: no pain, no incontinence, no bleeding Musculoskeletal: no neck stiffness, no neck pain, no shooting arm pain, no arm numbness/tingling, no low back pain, no shooting leg pain Integumentary: no rash, no pruritis, no redness, no sores, no wounds Neurological: no head injury, no transient paralysis, no paralysis, no weakness, no numbness, no tingling, no seizures, no syncope Psychiatric: no anxiety, no memory loss, no change in sleep habits, no sleep disturbances, no insomnia, no change in appetite, no suicidal ideation, no disorientation Endocrine: no cold intolerance, no heat intolerance, no excessive thirst, no polydipsia, no polyuria, no flushing Hematologic/Lymphatic: no easy bruising, no easy bleeding, no lymphadenopathy, no lymphedema Allergic/Immunologic: no allergic rhinitis, no persistent infections, no anaphylaxis Exam - Constitutional Vitals: Temp Pulse Resp BP Pulse Ox 98.6 F 16 L 16 166/58 98 09/09/18 20:14 09/09/18 20:14 09/09/18 20:14 09/09/18 20:14 09/09/18 20:14 General appearance: Present: mild distress - EENT Eyes: Present: PERRL ENT: hearing intact, clear oral mucosa - Neck Neck: Present: supple, normal ROM - Respiratory Respiratory effort: normal Respiratory: bilateral: CTA - Cardiovascular Heart Sounds: Present: S1 & S2. Absent: rub, click - Extremities Extremities: pulses symmetrical, No edema Peripheral Pulses: within normal limits - Abdominal General gastrointestinal: Present: soft, non-tender, non-distended, normal bowel sounds Male genitourinary: Present: normal - Integumentary Integumentary: Present: clear, warm, dry - Musculoskeletal Musculoskeletal: gait normal, strength equal bilaterally - Psychiatric Psychiatric: appropriate mood/affect, intact judgment & insight - Neurologic Neurologic: CNII-XII intact, moves all extremities Results - Labs CBC & Chem 7: 09/09/18 18:04 09/09/18 18:04 Labs: Abnormal lab results 09/09/18 09/09/18 Range/Units 18:04 18:04 RBC 3.19 L (3.65-5.03) M/mm3 Hgb 9.7 L (11.8-15.2) gm/dl Hct 28.5 L (35.5-45.6) % Glucose 134 H (75-100) mg/dL Albumin 3.1 L (3.9-5) g/dL Assessment and Plan - Patient Problems (1) Osteomyelitis Current Visit: Yes Status: Acute Qualifiers: Osteomyelitis location: foot Laterality: left Plan to address problem: IV antibiotic therapy, CBC, CMP, supportive care. Resume outpatient antibiotic therapy. (2) Occluded PICC line Current Visit: Yes Status: Acute Qualifiers: Encounter type: initial encounter Qualified Code(s): T82.898A - Other specified complication of vascular prosthetic devices, implants and grafts, initial encounter Plan to address problem: PICC line nurse consulted, supportive care. (3) DVT prophylaxis Current Visit: Yes Status: Acute Plan to address problem: SCD to BLE while in bed,
[2018-09-09] MEDS: PEPCID PO SCH (21:59)
[2018-09-09] MEDS: SODIUM CHLORIDE FLUSH SYRINGE 10 ML IV SCH (22:00)
[2018-09-10] MEDS: HumaLOG SUB-Q SCH ×4 (00:36→17:33)
[2018-09-10] MEDS: ZOSYN/NS 4.5GM/100ML 4.5 GM/100 ML VIAL IV SCH ×3 (02:03→17:39)
--- NOTE | 2018-09-10 09:27 | Discharge Summary ---
Providers - Providers Date of Admission: 09/09/18 18:03 Date of discharge: 09/10/18 Attending physician: MARQUEZ LANE 09/09/18 18:05 PICC Line Insertion [Consult to PICC Line RN] [CONS] Routine Reason For Exam: IV antibiotic therapy Type Line:: PICC 09/10/18 06:56 Consult to Wound/ET Nurse [CONS] Routine Reason For Exam: wound eval Primary care physician: TARSHA RODRIGUES Hospitalization Reason for admission: occluded PICC Condition: Stable Hospital course: 67 YO Male with DM complicated by Diabetic Foot Ulcer, Osteomyelitis on home IV antibiotic presents to ED for evaluation. Pt reports that his PICC line was dislodged and that he did not receive his antibiotic therapy. EMS notified, and the patient was transported to [facility]. Pt seen and evaluated in ED and found to have Dislodged PICC line without active bleeding. Pt admitted to medical floor and initiated on IV antibiotic therapy. PICC line team consulted in ED. patient received PICC line and is felt to have received maximal hospital benefit for discharge. Dedicated discharge time 32 minutes. Disposition: DC-01 TO HOME OR SELFCARE Time spent for discharge: 32 - Discharge Diagnoses (1) Occluded PICC line Status: Acute Qualifiers: Encounter type: initial encounter Qualified Code(s): T82.898A - Other specified complication of vascular prosthetic devices, implants and grafts, initial encounter (2) Osteomyelitis Status: Acute Qualifiers: Osteomyelitis location: foot Laterality: left (3) Osteomyelitis of left foot Status: Acute (4) Diabetic foot ulcer Status: Acute Qualifiers: Diabetic foot ulcer location: unspecified part of foot Diabetes mellitus type: type 2 Non-pressure ulcer stage: with fat layer exposed Core Measure Documentation - Palliative Care Palliative Care/ Comfort Measures: Not Applicable - Core Measures Any of the following diagnoses?: none Exam - Constitutional Vitals: Temp Pulse Resp BP Pulse Ox 98.7 F 70 16 167/90 99 09/10/18 05:10 09/10/18 05:10 09/10/18 05:10 09/10/18 05:10 09/10/18 05:10 General appearance: Present: no acute distress, well-nourished - EENT Eyes: Present: PERRL ENT: hearing intact, clear oral mucosa - Neck Neck: Present: supple, normal ROM - Respiratory Respiratory effort: normal Respiratory: bilateral: CTA - Cardiovascular Heart Sounds: Present: S1 & S2. Absent: rub, click - Extremities Extremities: pulses symmetrical, No edema Peripheral Pulses: within normal limits - Abdominal General gastrointestinal: Present: soft, non-tender, non-distended, normal bowel sounds Male genitourinary: Present: normal - Integumentary Integumentary: Present: clear, warm, dry - Musculoskeletal Musculoskeletal: gait normal, strength equal bilaterally - Psychiatric Psychiatric: appropriate mood/affect, intact judgment & insight - Neurologic Neurologic: CNII-XII intact, moves all extremities Plan Activity: advance as tolerated Weight Bearing Status: Weight Bear as Tolerated Diet: diabetic Follow up with: TARSHA RODRIGUES MD [Primary Care Provider] - 7 Days
[2018-09-10] MEDS: PEPCID PO SCH (10:03)
[2018-09-10] MEDS: SODIUM CHLORIDE FLUSH SYRINGE 10 ML IV SCH (10:11)
--- NOTE | 2018-09-10 11:30 | XRay Report ---
PROCEDURE: XR CHEST 1V AP TECHNIQUE: Chest radiograph single view. HISTORY: L arm PICC placement COMPARISONS: None . FINDINGS: Frontal view of the chest was acquired. The heart is top normal in size. There is a left-si ded PICC line with its tip in superior vena cava. There is no pneumothorax. The lungs appear mildly hyperinflated but clear. IMPRESSION: Left-sided PICC line terminates in the superior vena cava This document is electronically signed by Marquez Swan MD., September 10 2018 11:27:54 AM ET
[2018-09-10 13:52] VITALS: BP 141/86
== END 2018-09-10 19:30 | disposition home or self-care (01) ==
LOC: ED 13:53 → 3A 18:03
PROVIDERS: ADMIT Internal Medicine; ATTEND Hospitalist
DX: M86.172 Other acute osteomyelitis, left ankle and foot (principal); T82.898A Other specified complication of vascular prosthetic devices, implants and grafts, initial encounter; E11.621 Type 2 diabetes mellitus with foot ulcer; Z79.4 Long term (current) use of insulin; Z79.899 Other long term (current) drug therapy
CPT/HCPCS: 36415; 71045; 80053; 82962; 85025; 85730; 96365; 96366; 96372; 99284; G0378; J2543; J1815

== ENCOUNTER 2018-10-03 14:27 | Emergency (ER) | payer MEDICARE ==
--- NOTE | 2018-10-03 14:56 | Event Note ---
ED Screening Note ED Screening Note: pt has a PICC line for a couple weeks pt uses for abx for a diabetic foot wound PICC line not flowing today PMHx DM, HTN, dementia, HLD no allergies to meds This initial assessment/diagnostic orders/clinical plan/treatment(s) is/are subject to change based on patients health status, clinical progression and re- assessment by fellow clinical providers in the ED. Further treatment and workup at subsequent clinical providers discretion. Patient/guardian urged not to elope from the ED as their condition may be serious if not clinically assessed and managed.
[2018-10-03 15:45] LABS: Basophils % (Auto) 0.3 % (0.0-1.8); Eosinophils # (Auto) 0.5 K/mm3 (0.0-0.4); Eosinophils % (Auto) 8.9 % (0.0-4.3); Hematocrit 32.4 % (35.5-45.6); Hemoglobin 11.3 gm/dl (11.8-15.2); Lymphocytes # (Auto) 1.7 K/mm3 (1.2-5.4); Lymphocytes % (Auto) 33.5 % (13.4-35.0); Mean Corpuscular HGB Conc 35 % (32-34); Mean Corpuscular Volume 91 fl (84-94); Monocytes # (Auto) 0.4 K/mm3 (0.0-0.8); Platelet Count 186 K/mm3 (140-440); Red Blood Count 3.58 M/mm3 (3.65-5.03); Red Cell Distribution Width 17.3 % (13.2-15.2)
[2018-10-03 15:53] LABS: INR 0.94 (0.87-1.13)
[2018-10-03 15:54] LABS: Partial Thromboplastin Time 31.6 Sec. (24.2-36.6)
--- NOTE | 2018-10-03 16:32 | Emergency Department Report ---
ED General Adult HPI - General Chief complaint: Tube Replacement Stated complaint: PICC LINE CLOGGED Time Seen by Provider: 10/03/18 14:53 Source: patient Mode of arrival: Ambulatory Limitations: No Limitations - History of Present Illness Initial comments: Mr. Thakru is a 68 yo male with hx of DM, HTN, dementia who is currently on antibiotics for diabetic foot ulcer and osteomyeltitis. He was recently discharged from the hospital for replacement of PICC line mid-august. He denies any other concerns. At this time, the picc line does not flush.He has not received antibiotics for the past 2 days. -: Gradual Location: left, upper extremity Consistency: constant Improves with: none Worsens with: none Associated Symptoms: denies other symptoms - Related Data Home Medications Medication Instructions Recorded Confirmed Last Taken Glipizide 03/09/17 Unknown metFORMIN 03/09/17 Unknown Levemir Flextouch 25 unit SUB-Q HS MDD 25 units 11/10/17 11/10/17 Unknown Previous Rx's Medication Instructions Recorded Last Taken Type cephALEXin [Keflex] 500 mg PO Q8HR #15 cap 11/10/17 Unknown Rx Acetaminophen [Tylenol Arthritis] 650 mg PO Q6HR PRN #30 tablet.er 11/14/17 Unknown Rx Ibuprofen [Motrin 600 MG tab] 600 mg PO Q8H PRN #30 tablet 11/14/17 Unknown Rx Allergies Allergy/AdvReac Type Severity Reaction Status Date / Time No Known Allergies Allergy Verified 11/13/17 20:38 ED Review of Systems ROS: Stated complaint: PICC LINE CLOGGED Other details as noted in HPI Comment: All other systems reviewed and negative Constitutional: denies: fever, malaise ED Past Medical Hx - Past Medical History Previous Medical History?: Yes Hx Hypertension: Yes Hx CVA: No Hx Heart Attack/AMI: No Hx Congestive Heart Failure: No Hx Diabetes: Yes Hx Deep Vein Thrombosis: No Hx GERD: No Hx Arthritis: No Hx Headaches / Migraines: No Hx Kidney Stones: No Hx Asthma: No Hx COPD: No Hx Dementia: Yes Hx HIV: No Additional medical history: dementia. elevated cholesterol - Surgical History Hx Pacemaker: No Hx Internal Defibrillator: No - Social History Smoking Status: Unknown if ever smoked Substance Use Type: None - Medications Home Medications: Home Medications Medication Instructions Recorded Confirmed Last Taken Type Glipizide 03/09/17 Unknown History metFORMIN 03/09/17 Unknown History Levemir Flextouch 25 unit SUB-Q HS MDD 25 units 11/10/17 11/10/17 Unknown Histor y cephALEXin [Keflex] 500 mg PO Q8HR #15 cap 11/10/17 Unknown Rx Acetaminophen [Tylenol Arthritis] 650 mg PO Q6HR PRN #30 tablet.er 11/14/17 Unknown Rx Ibuprofen [Motrin 600 MG tab] 600 mg PO Q8H PRN #30 tablet 11/14/17 Unknown Rx ED Physical Exam - General Limitations: No Limitations General appearance: alert, in no apparent distress - Head Head exam: Present: atraumatic, normocephalic - Eye Eye exam: Present: normal appearance - ENT ENT exam: Present: mucous membranes moist - Neck Neck exam: Present: normal inspection, full ROM - Respiratory Respiratory exam: Present: normal lung sounds bilaterally. Absent: respiratory distress, wheezes, rales, rhonchi - Cardiovascular Cardiovascular Exam: Present: regular rate, normal rhythm, normal heart sounds. Absent: rubs, gallop - GI/Abdominal GI/Abdominal exam: Present: soft. Absent: distended, tenderness, guarding, rebound - Extremities Exam Extremities exam: Present: normal inspection - Neurological Exam Neurological exam: Present: alert, oriented X3 - Psychiatric Psychiatric exam: Present: normal affect, normal mood - Skin Skin exam: Present: warm, dry, intact, normal color, other (left upper arm: PICC line in place no surrounding erythema, edema or discharge). Absent: rash ED Course Vital Signs 10/03/18 14:55 Temperature 97.9 F Pulse Rate 66 Respiratory 18 Rate Blood Pressure 134/68 O2 Sat by Pulse 100 Oximetry ED Medical Decision Making - Lab Data Result diagrams: 10/03/18 15:20 10/03/18 15:20 - Medical Decision Making Mr. Thakur presents with PICC line which will not flush. I have asked nurse to administer TPA according to hospital policy for this circumstance. Activase Cathflo declotting procedure was successful. Nurse was able to flush PICC line without difficulty. Discharged home. Critical care attestation.: If time is entered above; I have spent that time in minutes in the direct care of this critically ill patient, excluding procedure time. ED Disposition Clinical Impression: Occluded PICC line, Osteomyelitis of left foot, Foot ulcer, left, Diabetic foot ulcer, Osteomyelitis Disposition: DC-01 TO HOME OR SELFCARE Is pt being admited?: No Does the pt Need Aspirin: No Condition: Stable
[2018-10-03] MEDS ORDERED: CATHFLO IV ONE ×2 (16:40→18:45)
[2018-10-03] MEDS ORDERED: WATER FOR INJ Sterile (PF) 10 ML ONE ×2 (17:08→19:25)
[2018-10-03 17:10] LABS: BUN/Creatinine Ratio 25; Blood Urea Nitrogen 30 mg/dL (9-20); Calcium 9.1 mg/dL (8.4-10.2); Hemolysis Index 37
[2018-10-03 21:10] VITALS: BP 132/68
== END 2018-10-03 21:09 | disposition home or self-care (01) ==
LOC: ED 14:27
DX: T82.818A Embolism due to vascular prosthetic devices, implants and grafts, initial encounter (principal); M86.8X7 Other osteomyelitis, ankle and foot; E11.621 Type 2 diabetes mellitus with foot ulcer; I10 Essential (primary) hypertension; E78.00 Pure hypercholesterolemia, unspecified; F03.90 Unspecified dementia, unspecified severity, without behavioral disturbance, psychotic disturbance, mood disturbance, and anxiety; Z79.899 Other long term (current) drug therapy; Y93.89 Activity, other specified
CPT/HCPCS: 36415; 36569; 37212; 80048; 85025; 85610; 85730; 99283; J2997; 96374; 96376

== ENCOUNTER 2018-10-10 13:21 | Emergency (ER) | payer MEDICARE ==
[2018-10-10] MEDS ORDERED: CATHFLO IV ONE (15:47)
--- NOTE | 2018-10-10 16:04 | Emergency Department Report ---
ED General Adult HPI - General Chief complaint: Medical Clearance Stated complaint: PICC LINE LFT ARM/CHANGING Time Seen by Provider: 10/10/18 15:14 Source: patient Mode of arrival: Ambulatory Limitations: No Limitations - History of Present Illness Initial comments: 68-year-old male presents to the ED due to malfunction in PICC line. Patient currently on antibiotics for osteomyelitis. [facility] patient has not received antibiotics in 3 days, [facility] home health nurse was unable to administer medication because PICC line is clogged. Patient seen 1 week ago for same, line was flushed in ED and found to be functional. Family requesting new PICC line today. -: days(s) (3) Location: left, upper extremity Consistency: intermittent Improves with: none Worsens with: none Associated Symptoms: denies other symptoms Treatments Prior to Arrival: none - Related Data Home Medications Medication Instructions Recorded Confirmed Last Taken Glipizide 03/09/17 Unknown metFORMIN 03/09/17 Unknown Levemir Flextouch 25 unit SUB-Q HS MDD 25 units 11/10/17 11/10/17 Unknown Previous Rx's Medication Instructions Recorded Last Taken Type cephALEXin [Keflex] 500 mg PO Q8HR #15 cap 11/10/17 Unknown Rx Acetaminophen [Tylenol Arthritis] 650 mg PO Q6HR PRN #30 tablet.er 11/14/17 Unknown Rx Ibuprofen [Motrin 600 MG tab] 600 mg PO Q8H PRN #30 tablet 11/14/17 Unknown Rx Allergies Allergy/AdvReac Type Severity Reaction Status Date / Time No Known Allergies Allergy Verified 11/13/17 20:38 ED Review of Systems ROS: Stated complaint: PICC LINE LFT ARM/CHANGING Other details as noted in HPI Comment: All other systems reviewed and negative Constitutional: denies: fever Musculoskeletal: other (denies swelling) ED Past Medical Hx - Past Medical History Previous Medical History?: Yes Hx Hypertension: Yes Hx CVA: No Hx Heart Attack/AMI: No Hx Congestive Heart Failure: No Hx Diabetes: Yes Hx Deep Vein Thrombosis: No Hx GERD: No Hx Arthritis: No Hx Headaches / Migraines: No Hx Kidney Stones: No Hx Asthma: No Hx COPD: No Hx Dementia: Yes Hx HIV: No Additional medical history: dementia. elevated cholesterol - Surgical History Past Surgical History?: No Hx Pacemaker: No Hx Internal Defibrillator: No - Social History Smoking Status: Never Smoker Substance Use Type: None - Medications Home Medications: Home Medications Medication Instructions Recorded Confirmed Last Taken Type Glipizide 03/09/17 Unknown History metFORMIN 03/09/17 Unknown History Levemir Flextouch 25 unit SUB-Q HS MDD 25 units 11/10/17 11/10/17 Unknown History cephALEXin [Keflex] 500 mg PO Q8HR #15 cap 11/10/17 Unknown Rx Acetaminophen [Tylenol Arthritis] 650 mg PO Q6HR PRN #30 tablet.er 11/14/17 Unknown Rx Ibuprofen [Motrin 600 MG tab] 600 mg PO Q8H PRN #30 tablet 11/14/17 Unknown Rx ED Physical Exam - General Limitations: No Limitations General appearance: alert, in no apparent distress - Head Head exam: Present: atraumatic, normocephalic - Eye Eye exam: Present: normal appearance - ENT ENT exam: Present: mucous membranes moist - Neck Neck exam: Present: normal inspection - Respiratory Respiratory exam: Present: normal lung sounds bilaterally. Absent: respiratory distress - Cardiovascular Cardiovascular Exam: Present: regular rate, normal rhythm - GI/Abdominal GI/Abdominal exam: Absent: distended - Extremities Exam Extremities exam: Present: other (PICC line present to E) - Neurological Exam Neurological exam: Present: alert, oriented X3 - Psychiatric Psychiatric exam: Present: normal affect, normal mood - Skin Skin exam: Present: warm, dry, intact, normal color ED Course Vital Signs 10/10/18 10/10/18 10/10/18 13:57 18:31 18:37 Temperature 98 F Pulse Rate 67 87 72 Respiratory 18 18 18 Rate Blood Pressure 117/73 Blood Pressure 134/62 126/65 [Right] O2 Sat by Pulse 100 100 100 Oximetry - Reevaluation(s) Reevaluation #1: 10/10/18 18:41 Old PICC line removed. New PICC line placed by PICC nurse. Will d/c at this time ED Medical Decision Making - Differential Diagnosis PICC line malfunction Critical care attestation.: If time is entered above; I have spent that time in minutes in the direct care of this critically ill patient, excluding procedure time. ED Disposition Clinical Impression: PIC line (peripherally inserted central catheter) removal, S/P PICC central line placement Disposition: TO HOME OR SELFCARE Is pt being admited?: No Condition: Stable Instructions: Peripherally Inserted Central Catheters and Midline Catheters (ED) Referrals: TARSHA RODRIGUES MD [Primary Care Provider] - 3-5 Days Time of Disposition: 18:43
[2018-10-10 18:38] VITALS: BP 126/65
== END 2018-10-10 19:14 | disposition home or self-care (01) ==
LOC: ED 13:21
DX: T82.868A Thrombosis due to vascular prosthetic devices, implants and grafts, initial encounter (principal); I10 Essential (primary) hypertension; E11.9 Type 2 diabetes mellitus without complications; F03.90 Unspecified dementia, unspecified severity, without behavioral disturbance, psychotic disturbance, mood disturbance, and anxiety; E78.00 Pure hypercholesterolemia, unspecified; Z79.899 Other long term (current) drug therapy
CPT/HCPCS: 99283

== ENCOUNTER 2018-11-11 10:55 | Emergency (ER) | payer MEDICARE ==
[2018-11-11 11:18] VITALS: BP 164/79
[2018-11-11] MEDS ORDERED: ZOFRAN IV ONE (11:20)
[2018-11-11] MEDS ORDERED: D50W (25GM) Syringe IV ONE ×2 (11:20→11:21)
[2018-11-11] MEDS ORDERED: NACL 0.9% 1000 ML 1,000 ML IV ONE (11:21)
[2018-11-11 11:34] LABS: Basophils % (Auto) 1.2 % (0.0-1.8); Eosinophils # (Auto) 0.2 K/mm3 (0.0-0.4); Eosinophils % (Auto) 6.3 % (0.0-4.3); Hematocrit 38.5 % (35.5-45.6); Hemoglobin 12.9 gm/dl (11.8-15.2); Lymphocytes % (Auto) 30.5 % (13.4-35.0); Mean Corpuscular HGB Conc 34 % (32-34); Mean Corpuscular Volume 92 fl (84-94); Monocytes # (Auto) 0.2 K/mm3 (0.0-0.8); Monocytes % (Auto) 5.3 % (0.0-7.3); Platelet Count 153 K/mm3 (140-440); Red Cell Distribution Width 16.5 % (13.2-15.2)
--- NOTE | 2018-11-11 11:36 | Emergency Department Report ---
ED General Adult HPI - General Chief complaint: Hypoglycemia Stated complaint: HYPOGLYCEMIA Time Seen by Provider: 11/11/18 11:14 Source: EMS Mode of arrival: Ambulatory Limitations: No Limitations - History of Present Illness Initial comments: 68-year-old male with a history of insulin-dependent diabetes. I am told that he had a different bottom sander today that gave him his medicine without feeding. The patient became altered after insulin. Medics were summoned to the scene and found him to have a blood sugar of 18. He arrived somewhat confused per nursing staff. However on my encounter, he was reasonably oriented and able to follow commands. His exam was consistent with an individual with dementia. His repeat blood sugar was 108. He was able to deny that he was recently ill. -: Gradual Associated Symptoms: denies other symptoms - Related Data Home Medications Medication Instructions Recorded Confirmed Last Taken Glipizide 03/09/17 Unknown metFORMIN 03/09/17 Unknown Levemir Flextouch 25 unit SUB-Q HS MDD 25 units 11/10/17 11/10/17 Unknown Previous Rx's Medication Instructions Recorded Last Taken Type cephALEXin [Keflex] 500 mg PO Q8HR #15 cap 11/10/17 Unknown Rx Acetaminophen [Tylenol Arthritis] 650 mg PO Q6HR PRN #30 tablet.er 11/14/17 Unknown Rx Ibuprofen [Motrin 600 MG tab] 600 mg PO Q8H PRN #30 tablet 11/14/17 Unknown Rx Allergies Allergy/AdvReac Type Severity Reaction Status Date / Time No Known Allergies Allergy Verified 11/13/17 20:38 ED Review of Systems ROS: Stated complaint: HYPOGLYCEMIA Other details as noted in HPI Comment: Unobtainable due to pts medical conditions (Limited secondary to dementia) ED Past Medical Hx - Past Medical History Previous Medical History?: Yes Hx Hypertension: Yes Hx CVA: No Hx Heart Attack/AMI: No Hx Congestive Heart Failure: No Hx Diabetes: Yes Hx Deep Vein Thrombosis: No Hx Pulmonary Embolism: No Hx GERD: No Hx Liver Disease: No Hx Renal Disease: No Hx Sickle Cell Disease: No Hx Arthritis: No Hx Headaches / Migraines: No Hx Seizures: No Hx Kidney Stones: No Hx Psychiatric Treatment: No Hx Asthma: No Hx COPD: No Hx Tuberculosis: No Hx Dementia: Yes Hx HIV: No Additional medical history: dementia. elevated cholesterol - Surgical History Past Surgical History?: Yes Hx Coronary Stent: No Hx Open Heart Surgery: No Hx Pacemaker: No Hx Internal Defibrillator: No Hx Cholecystectomy: No Hx Appendectomy: No Hx Breast Surgery: No - Social History Smoking Status: Never Smoker Substance Use Type: None - Medications Home Medications: Home Medications Medication Instructions Recorded Confirmed Last Taken Type Glipizide 03/09/17 Unknown History metFORMIN 03/09/17 Unknown History Levemir Flextouch 25 unit SUB-Q HS MDD 25 units 11/10/17 11/10/17 Unknown History cephALEXin [Keflex] 500 mg PO Q8HR #15 cap 11/10/17 Unknown Rx Acetaminophen [Tylenol Arthritis] 650 mg PO Q6HR PRN #30 tablet.er 11/14/17 Unknown Rx Ibuprofen [Motrin 600 MG tab] 600 mg PO Q8H PRN #30 tablet 11/14/17 Unknown Rx ED Physical Exam - General Limitations: Other (consistent with dementia) General appearance: alert, in no apparent distress - Head Head exam: Present: atraumatic, normocephalic - Eye Eye exam: Present: normal appearance. Absent: scleral icterus - ENT ENT exam: Present: mucous membranes moist - Neck Neck exam: Present: normal inspection - Respiratory Respiratory exam: Present: normal lung sounds bilaterally. Absent: respiratory distress - Cardiovascular Cardiovascular Exam: Present: regular rate, normal rhythm. Absent: systolic murmur, diastolic murmur, rubs, gallop - GI/Abdominal GI/Abdominal exam: Present: soft, normal bowel sounds. Absent: distended, tenderness, guarding, rebound - Rectal Rectal exam: Present: deferred - Extremities Exam Extremities exam: Present: normal inspection - Back Exam Back exam: Present: normal inspection - Neurological Exam Neurological exam: Present: alert, CN II-XII intact (as testable). Absent: motor sensory deficit - Psychiatric Psychiatric exam: Present: normal mood, flat affect - Skin Skin exam: Present: warm, dry, intact, normal color. Absent: rash ED Course Vital Signs 11/11/18 11/11/18 11/11/18 11:12 11:17 11:31 Temperature 97.2 F L Pulse Rate 51 L 57 L 53 L Respiratory 14 16 14 Rate Blood Pressure 164/79 164/79 164/79 Blood Pressure 164/79 [Right] O2 Sat by Pulse 100 89 88 Oximetry 11/11/18 11/11/18 11/11/18 11:45 12:01 12:15 Temperature Pulse Rate 52 L 51 L 53 L Respiratory 13 12 14 Rate Blood Pressure 164/79 164/79 164/79 Blood Pressure [Right] O2 Sat by Pulse 90 91 91 Oximetry ED Medical Decision Making - Lab Data Result diagrams: 11/11/18 Unknown 11/11/18 Unknown Laboratory Results - last 24 hr 11/11/18 11/11/18 11/11/18 11:17 Unknown Unknown WBC 3.1 L RBC 4.20 Hgb 12.9 Hct 38.5 MCV 92 MCH 31 MCHC 34 RDW 16.5 H Plt Count 153 Lymph % (Auto) 30.5 [place] % (Auto) 5.3 Eos % (Auto) 6.3 H Baso % (Auto) 1.2 Lymph # 1.0 L [place] # 0.2 Eos # 0.2 Baso # 0.0 Seg Neutrophils % 56.7 Seg Neutrophils # 1.8 PT 13.5 INR 1.06 APTT 28.5 Sodium Potassium Chloride Carbon Dioxide Anion Gap BUN Creatinine Estimated GFR BUN/Creatinine Ratio Glucose POC Glucose 108 H Calcium Magnesium Total Bilirubin Direct Bilirubin Indirect Bilirubin AST ALT Alkaline Phosphatase Total Creatine Kinase CK-MB (CK-2) CK-MB (CK-2) Rel Index Troponin T NT-Pro-B Natriuret Pep Total Protein Albumin Albumin/Globulin Ratio 11/11/18 Unknown WBC RBC Hgb Hct MCV MCH MCHC RDW Plt Count Lymph % (Auto) [place] % (Auto) Eos % (Auto) Baso % (Auto) Lymph # [place] # Eos # Baso # Seg Neutrophils % Seg Neutrophils # PT INR APTT Sodium 140 Potassium 3.9 Chloride 101.9 Carbon Dioxide 27 Anion Gap 15 BUN 17 Creatinine 0.9 Estimated GFR > 60 BUN/Creatinine Ratio 19 Glucose 91 POC Glucose Calcium 8.9 Magnesium 1.90 Total Bilirubin 0.60 Direct Bilirubin < 0.2 Indirect Bilirubin 0.4 AST 35 ALT 44 Alkaline Phosphatase 88 Total Creatine Kinase 426 H CK-MB (CK-2) 4.5 H CK-MB (CK-2) Rel Index 1.0 Troponin T < 0.010 NT-Pro-B Natriuret Pep 921.3 H Total Protein 7.3 Albumin 3.8 L Albumin/Globulin Ratio 1.1 Laboratory Results - last 24 hr 08/16/19 08/16/19 08/16/19 11:17 11:36 11:36 WBC RBC Hgb Hct MCV MCH MCHC RDW Plt Count Lymph % (Auto) [place] % (Auto) Eos % (Auto) Baso % (Auto) Lymph # [place] # Eos # Baso # Seg Neutrophils % Seg Neutrophils # PT INR APTT Sodium Potassium Chloride Carbon Dioxide Anion Gap BUN Creatinine Estimated GFR BUN/Creatinine Ratio Glucose POC Glucose 108 H Lactic Acid Calcium Magnesium Total Bilirubin Direct Bilirubin Indirect Bilirubin AST ALT Alkaline Phosphatase Ammonia 23.0 L Total Creatine Kinase CK-MB (CK-2) CK-MB (CK-2) Rel Index Troponin T NT-Pro-B Natriuret Pep Total Protein Albumin Albumin/Globulin Ratio Plasma/Serum Alcohol < 0.01 11/11/18 11/11/18 11/11/18 11:36 13:04 15:08 WBC RBC Hgb Hct MCV MCH MCHC RDW Plt Count Lymph % (Auto) [place] % (Auto) Eos % (Auto) Baso % (Auto) Lymph # [place] # Eos # Baso # Seg Neutrophils % Seg Neutrophils # PT INR APTT Sodium Potassium Chloride Carbon Dioxide Anion Gap BUN Creatinine Estimated GFR BUN/Creatinine Ratio Glucose POC Glucose 80 108 H Lactic Acid 0.80 Calcium Magnesium Total Bilirubin Direct Bilirubin Indirect Bilirubin AST ALT Alkaline Phosphatase Ammonia Total Creatine Kinase CK-MB (CK-2) CK-MB (CK-2) Rel Index Troponin T NT-Pro-B Natriuret Pep Total Protein Albumin Albumin/Globulin Ratio Plasma/Serum Alcohol 11/11/18 11/11/18 11/11/18 Unknown Unknown Unknown WBC 3.1 L RBC 4.20 Hgb 12.9 Hct 38.5 MCV 92 MCH 31 MCHC 34 RDW 16.5 H Plt Count 153 Lymph % (Auto) 30.5 [place] % (Auto) 5.3 Eos % (Auto) 6.3 H Baso % (Auto) 1.2 Lymph # 1.0 L [place] # 0.2 Eos # 0.2 Baso # 0.0 Seg Neutrophils % 56.7 Seg Neutrophils # 1.8 PT 13.5 INR 1.06 APTT 28.5 Sodium 140 Potassium 3.9 Chloride 101.9 Carbon Dioxide 27 Anion Gap 15 BUN 17 Creatinine 0.9 Estimated GFR > 60 BUN/Creatinine Ratio 19 Glucose 91 POC Glucose Lactic Acid Calcium 8.9 Magnesium 1.90 Total Bilirubin 0.60 Direct Bilirubin < 0.2 Indirect Bilirubin 0.4 AST 35 ALT 44 Alkaline Phosphatase 88 Ammonia Total Creatine Kinase 426 H CK-MB (CK-2) 4.5 H CK-MB (CK-2) Rel Index 1.0 Troponin T < 0.010 NT-Pro-B Natriuret Pep 921.3 H Total Protein 7.3 Albumin 3.8 L Albumin/Globulin Ratio 1.1 Plasma/Serum Alcohol - EKG Data -: EKG Interpreted by Me EKG shows normal: sinus rhythm, axis, intervals, QRS complexes, ST-T waves Rate: normal - EKG Data Interpretation: nonspecific ST-T wave marie, other (consistent with LVH, J-point elevation in V2 V3 and nonspecific changes) - Radiology Data Radiology results: report reviewed Chronic changes no acute process Critical care attestation.: If time is entered above; I have spent that time in minutes in the direct care of this critically ill patient, excluding procedure time. ED Disposition Clinical Impression: Hypoglycemia associated with diabetes Disposition: DC-01 TO HOME OR SELFCARE Is pt being admited?: No Does the pt Need Aspirin: No Condition: Stable Instructions: Diabetes Mellitus Type 2 in Adults (ED), Diabetic Hypoglycemia (ED) Additional Instructions: Check sugars frequently particularly before giving insulin. Adjust insulin dose per sugar level found. Referrals: SAAD LYNN MD [Primary Care Provider] - 2-3 Days Time of Disposition: 15:24
--- NOTE | 2018-11-11 11:40 | XRay Report ---
CHEST 1 VIEW INDICATION: hypertension. COMPARISON: 09/20/2018 FINDINGS: Support devices: None. Heart: Within normal limits. Lungs/Pleura: No acute air space or interstitial disease. Additional findings: None. IMPRESSION: No acute findings. Signer Name: Felix Whittaker Jr, MD Signed: 11/11/2018 11:36 AM Workstation Name: [id number]
[2018-11-11 11:42] LABS: INR 1.06 (0.87-1.13); Partial Thromboplastin Time 28.5 Sec. (24.2-36.6)
[2018-11-11 11:53] LABS: Creatine Kinase MB 4.5 ng/mL (0.0-4.0)
[2018-11-11 11:55] LABS: Alanine Aminotransferase 44 units/L (7-56); Albumin 3.8 g/dL (3.9-5); BUN/Creatinine Ratio 19; Blood Urea Nitrogen 17 mg/dL (9-20); Calcium 8.9 mg/dL (8.4-10.2); Hemolysis Index 41
[2018-11-11 11:59] LABS: Bilirubin,Direct < 0.2 mg/dL (0-0.2)
--- NOTE | 2018-11-11 14:02 | Cat Scan Report ---
CT HEAD WITHOUT CONTRAST HISTORY: Altered mental status. TECHNIQUE: Axial imaging performed from the skull apex through the skull base without the use of con trast. All CT scans at this location are performed using CT dose reduction for ALARA by means of aut omated exposure control. COMPARISON: None FINDINGS: Parenchyma: No acute intracranial hemorrhage or parenchymal abnormality.. Mild hypoattenuation thro ughout the white matter is noted and consistent with chronic microvascular ischemic disease. Chronic focal infarct in the right anterior basal ganglia measures 1.1 cm. Ventricles: There is mild diffuse brain atrophy with commensurate ventricular enlargement which is l ikely age appropriate. Soft tissues: Soft tissues including the orbits appear normal. Bones: No acute osseous abnormality. Sinuses: Sinuses and mastoid air cells are clear. IMPRESSION: No acute abnormality. Chronic findings as outlined above. Signer Name: Felix Whittaker Jr, MD Signed: 11/11/2018 1:57 PM Workstation Name: [id number]
== END 2018-11-11 16:38 | disposition home or self-care (01) ==
LOC: ED 10:55
DX: E11.649 Type 2 diabetes mellitus with hypoglycemia without coma (principal); I10 Essential (primary) hypertension; F03.90 Unspecified dementia, unspecified severity, without behavioral disturbance, psychotic disturbance, mood disturbance, and anxiety; E78.00 Pure hypercholesterolemia, unspecified; Z79.899 Other long term (current) drug therapy; Z79.4 Long term (current) use of insulin
CPT/HCPCS: 36415; 70450; 71045; 80048; 80076; 82140; 82550; 82553; 82962; 83735; 83880; 84484; 85025; 85610; 85730; 93005; 93010; 96361; 96374; 99285; J2405; J7030; 80320; G0480

== ENCOUNTER 2019-05-24 03:12 | Emergency (ER) | payer MEDICARE ==
[2019-05-24] MEDS ORDERED: DEXTROSE 50% IN WATER (25GM) 50 ML SYRINGE IV ONE ×2 (03:33→03:37)
[2019-05-24 04:05] LABS: Basophils # (Auto) 0.1 K/mm3 (0.0-0.1); Eosinophils # (Auto) 0.1 K/mm3 (0.0-0.4); Eosinophils % (Auto) 1.2 % (0.0-4.3); Hematocrit 34.1 % (35.5-45.6); Hemoglobin 11.3 gm/dl (11.8-15.2); Lymphocytes # (Auto) 0.6 K/mm3 (1.2-5.4); Lymphocytes % (Auto) 11.7 % (13.4-35.0); Mean Corpuscular HGB Conc 33 % (32-34); Mean Corpuscular Volume 90 fl (84-94); Monocytes # (Auto) 0.3 K/mm3 (0.0-0.8); Monocytes % (Auto) 5.6 % (0.0-7.3); Platelet Count 207 K/mm3 (140-440); Red Blood Count 3.81 M/mm3 (3.65-5.03); Red Cell Distribution Width 14.4 % (13.2-15.2)
[2019-05-24 04:29] LABS: BUN/Creatinine Ratio 22; Blood Urea Nitrogen 20 mg/dL (9-20); Calcium 8.7 mg/dL (8.4-10.2); Hemolysis Index 155
--- NOTE | 2019-05-24 04:58 | Emergency Department Report ---
ED General Adult HPI - General Chief complaint: Hypoglycemia Stated complaint: AMS Time Seen by Provider: 05/24/19 03:32 Source: EMS Mode of arrival: Stretcher Limitations: Altered Mental Status - History of Present Illness Initial comments: Patient is-year-old F Israeli male with a past medical history of diabetes hypertension and dementia who is presenting with hypoglycemia. Patient was noted to be poorly responsive at home. Paramedics arrived blood sugar was 12. Patient is taking Levemir and likely metformin. His grandson does not have metformin on the picture he took the patient's current medications however on the patient's last discharge which was within the last week the patient was taken off of glipizide and put on metformin. To his grandson's knowledge the patient is no longer taking glipizide. Patient has been eating 3 meals a day however the meals sometimes are small yet he is taking his full dose of insulin. Patient arrived alert and oriented and had received D50 prior to arrival. Patient is somewhat sluggish to answer questions but he is awake and alert. - Related Data Home Medications Medication Instructions Recorded Confirmed Last Taken metFORMIN 03/09/17 Unknown Atorvastatin [Lipitor] 40 mg PO 05/22/19 Unknown Lisinopril/Hydrochlorothiazide 1 each PO 05/22/19 Unknown [Zestoretic 10-12.5 mg Tablet] Memantine HCl/Donepezil HCl 1 each PO HS 05/22/19 05/22/19 Unknown [Namzaric 7 mg-10 mg Capsule] Pantoprazole [Protonix TAB] 40 mg PO QDAY 05/22/19 05/22/19 Unknown amLODIPine 5 mg PO DAILY 05/22/19 05/22/19 Unknown Previous Rx's Medication Instructions Recorded Last Taken Type Acetaminophen [Tylenol Arthritis] 650 mg PO Q6HR PRN #30 tablet.er 11/14/17 Unknown Rx Insulin Regular, Human [HumuLIN R] 0 unit SQ AC #1 vial 05/22/19 Unknown Rx amLODIPine 10 mg PO DAILY #90 tab 05/22/19 Unknown Rx lisinopriL [Zestril TAB] 20 mg PO QDAY #90 tablet 05/22/19 Unknown Rx metFORMIN XR [Glucophage XR] 500 mg PO QDDIAB #90 tablet 05/22/19 Unknown Rx Allergies Allergy/AdvReac Type Severity Reaction Status Date / Time No Known Allergies Allergy Verified 11/13/17 20:38 ED Review of Systems ROS: Stated complaint: AMS Other details as noted in HPI Comment: All other systems reviewed and negative ED Past Medical Hx - Past Medical History Previous Medical History?: Yes Hx Hypertension: Yes Hx CVA: No Hx Heart Attack/AMI: No Hx Congestive Heart Failure: No Hx Diabetes: Yes Hx Deep Vein Thrombosis: No Hx Pulmonary Embolism: No Hx GERD: No Hx Liver Disease: No Hx Renal Disease: No Hx Sickle Cell Disease: No Hx Arthritis: No Hx Headaches / Migraines: No Hx Seizures: No Hx Kidney Stones: No Hx Psychiatric Treatment: No Hx Asthma: No Hx COPD: No Hx Tuberculosis: No Hx Dementia: Yes Hx HIV: No Additional medical history: dementia. elevated cholesterol - Surgical History Hx Coronary Stent: No Hx Open Heart Surgery: No Hx Pacemaker: No Hx Internal Defibrillator: No Hx Cholecystectomy: No Hx Appendectomy: No Hx Breast Surgery: No - Social History Smoking Status: Unknown if ever smoked - Medications Home Medications: Home Medications Medication Instructions Recorded Confirmed Last Taken Type metFORMIN 03/09/17 Unknown History Acetaminophen [Tylenol Arthritis] 650 mg PO Q6HR PRN #30 tablet.er 11/14/17 Unknown Rx Atorvastatin [Lipitor] 40 mg PO 05/22/19 Unknown History Insulin Regular, Human [HumuLIN R] 0 unit SQ AC #1 vial 05/22/19 Unknown Rx Lisinopril/Hydrochlorothiazide 1 each PO 05/22/19 Unknown History [Zestoretic 10-12.5 mg Tablet] Memantine HCl/Donepezil HCl 1 each PO HS 05/22/19 05/22/19 Unknown History [Namzaric 7 mg-10 mg Capsule] Pantoprazole [Protonix TAB] 40 mg PO QDAY 05/22/19 05/22/19 Unknown History amLODIPine 5 mg PO DAILY 05/22/19 05/22/19 Unknown History amLODIPine 10 mg PO DAILY #90 tab 05/22/19 Unknown Rx lisinopriL [Zestril TAB] 20 mg PO QDAY #90 tablet 05/22/19 Unknown Rx metFORMIN XR [Glucophage XR] 500 mg PO QDDIAB #90 tablet 05/22/19 Unknown Rx ED Physical Exam - General Limitations: Altered Mental Status General appearance: alert, in no apparent distress - Head Head exam: Present: atraumatic, normocephalic - Eye Eye exam: Present: normal appearance, PERRL, EOMI - ENT ENT exam: Present: mucous membranes moist - Neck Neck exam: Present: normal inspection - Respiratory Respiratory exam: Present: normal lung sounds bilaterally. Absent: respiratory distress, wheezes, rales, rhonchi - Cardiovascular Cardiovascular Exam: Present: regular rate, normal rhythm. Absent: systolic murmur, diastolic murmur, rubs, gallop - GI/Abdominal GI/Abdominal exam: Present: soft, normal bowel sounds. Absent: distended, tenderness, guarding, rebound - Rectal Rectal exam: Present: deferred - Extremities Exam Extremities exam: Present: normal inspection - Back Exam Back exam: Present: normal inspection - Neurological Exam Neurological exam: Present: alert, oriented X3 - Psychiatric Psychiatric exam: Present: normal affect, normal mood - Skin Skin exam: Present: warm, dry, intact, normal color. Absent: rash ED Course Vital Signs 05/24/19 05/24/19 05/24/19 03:26 03:30 03:45 Pulse Rate 78 77 83 Respiratory 15 16 12 Rate Blood Pressure 154/84 154/84 161/87 O2 Sat by Pulse 75 L 94 93 Oximetry 05/24/19 05/24/19 05/24/19 04:00 04:15 04:30 Pulse Rate 89 78 80 Respiratory 12 16 13 Rate Blood Pressure 161/87 165/85 142/92 O2 Sat by Pulse 94 94 95 Oximetry 05/24/19 04:45 Pulse Rate 82 Respiratory 12 Rate Blood Pressure 142/79 O2 Sat by Pulse 95 Oximetry - Reevaluation(s) Reevaluation #1: 05/24/19 04:58 On arrival patient is slow to respond to questions. His blood sugar was in the 50s he was given another amp of D50. Patient did perk up quite a bit and sat up and was able to eat a meal. We will continue to check the patient's blood sugar hourly. Reevaluation #2: 05/24/19 05:48 Blood glucose at this time is 96 the patient is still alert and oriented. Patient is safe for discharge. ED Medical Decision Making - Lab Data Result diagrams: 05/24/19 03:42 05/24/19 03:42 Lab Results 05/24/19 05/24/19 05/24/19 Range/Units 03:41 03:42 03:42 WBC 4.9 (4.5-11.0) K/mm3 RBC 3.81 (3.65-5.03) M/mm3 Hgb 11.3 L (11.8-15.2) gm/dl Hct 34.1 L (35.5-45.6) % MCV 90 (84-94) fl MCH 30 (28-32) pg MCHC 33 (32-34) % RDW 14.4 (13.2-15.2) % Plt Count 207 (140-440) K/mm3 Lymph % (Auto) 11.7 L (13.4-35.0) % [place] % (Auto) 5.6 (0.0-7.3) % Eos % (Auto) 1.2 (0.0-4.3) % Baso % (Auto) 1.0 (0.0-1.8) % Lymph # 0.6 L (1.2-5.4) K/mm3 [place] # 0.3 (0.0-0.8) K/mm3 Eos # 0.1 (0.0-0.4) K/mm3 Baso # 0.1 (0.0-0.1) K/mm3 Seg Neutrophils % 80.5 H (40.0-70.0) % Seg Neutrophils # 3.9 (1.8-7.7) K/mm3 Sodium 142 (137-145) mmol/L Chloride 101.7 (98-107) mmol/L Carbon Dioxide 24 (22-30) mmol/L BUN 20 (9-20) mg/dL Creatinine 0.9 (0.8-1.5) mg/dL Estimated GFR > 60 ml/min BUN/Creatinine Ratio 22 % Glucose 207 H (75-100) mg/dL POC Glucose 58 L (70-105) Calcium 8.7 (8.4-10.2) mg/dL 05/24/19 Range/Units 04:00 WBC (4.5-11.0) K/mm3 RBC (3.65-5.03) M/mm3 Hgb (11.8-15.2) gm/dl Hct (35.5-45.6) % MCV (84-94) fl MCH (28-32) pg MCHC (32-34) % RDW (13.2-15.2) % Plt Count (140-440) K/mm3 Lymph % (Auto) (13.4-35.0) % [place] % (Auto) (0.0-7.3) % Eos % (Auto) (0.0-4.3) % Baso % (Auto) (0.0-1.8) % Lymph # (1.2-5.4) K/mm3 [place] # (0.0-0.8) K/mm3 Eos # (0.0-0.4) K/mm3 Baso # (0.0-0.1) K/mm3 Seg Neutrophils % (40.0-70.0) % Seg Neutrophils # (1.8-7.7) K/mm3 Sodium (137-145) mmol/L Chloride (98-107) mmol/L Carbon Dioxide (22-30) mmol/L BUN (9-20) mg/dL Creatinine (0.8-1.5) mg/dL Estimated GFR ml/min BUN/Creatinine Ratio % Glucose (75-100) mg/dL POC Glucose 199 H (70-105) Calcium (8.4-10.2) mg/dL Critical care attestation.: If time is entered above; I have spent that time in minutes in the direct care of this critically ill patient, excluding procedure time. ED Disposition Clinical Impression: Hypoglycemia Insulin reaction Qualifiers: Encounter type: initial encounter Qualified Code(s): T38.3X5A - Adverse effect of insulin and oral hypoglycemic [antidiabetic] drugs, initial encounter Disposition: DC-01 TO HOME OR SELFCARE Is pt being admited?: No Does the pt Need Aspirin: No Condition: Stable Additional Instructions: Please follow-up with your primary care physician to determine whether you are on the proper dose of insulin Referrals: PRIMARY MD LUC [Primary Care Provider] - 3-5 Days Time of Disposition: 05:48
[2019-05-24 05:49] VITALS: BP 136/81
== END 2019-05-24 06:09 | disposition home or self-care (01) ==
LOC: ED 03:12
DX: E11.649 Type 2 diabetes mellitus with hypoglycemia without coma (principal); T38.3X5A Adverse effect of insulin and oral hypoglycemic [antidiabetic] drugs, initial encounter; I10 Essential (primary) hypertension; F03.90 Unspecified dementia, unspecified severity, without behavioral disturbance, psychotic disturbance, mood disturbance, and anxiety; E78.00 Pure hypercholesterolemia, unspecified; Z79.84 Long term (current) use of oral hypoglycemic drugs; Z79.4 Long term (current) use of insulin; Z79.899 Other long term (current) drug therapy; Y92.89 Other specified places as the place of occurrence of the external cause
CPT/HCPCS: 36415; 80048; 82962; 85025; 93005; 93010; 96374